=== PATIENT | female | born 1935 | race Caucasian/White ===

== ENCOUNTER → 2016-04-26 | Outpatient (CLI) | payer OTHER, BC ==
[~2016-04-26] MED LIST: ATV5X PO; CHOL100010 PO; CLC100 PO; EFFSR150 PO; FLNIN NAE; LAMO1TAB21 PO; LEVO100T7 PO; LPT40 PO; PANT40TA PO; VALS-58 PO
[2016-04-26 16:49] LABS: BASO % 0.6 %; BASO ABS # 0.05 K/uL (0-0.2); COMPLETE YES; EOS % 4.3 %; HEMATOCRIT 40.7 % (37-47); IG% 0.2 %; LYMPH % 27.2 %; LYMPH ABS # 2.27 K/uL (1.2-3.4); MEAN CELL VOLUME 91.9 fL (80-100); MEAN CORPUSCULAR HEMOGLOBIN 31.2 pg (25-34); MEAN CORPUSCULAR HGB CONC 33.9 g/dl (32-36); MEAN PLATELET VOLUME 8.9 fL (7.4-10.4); MONO % 7.2 %; NEUT % 60.5 %; PLATELET COUNT 274 K/uL (130-400); RED BLOOD COUNT 4.43 M/uL (4.2-5.4); WHITE BLOOD COUNT 8.36 K/uL (4.8-10.8)
--- NOTE | 2016-04-26 16:50 | DIAGNOSTIC IMAGING REPORT ---
CT HEAD WITHOUT CONTRAST (CT) CLINICAL HISTORY: Head pain. Head trauma. COMPARISON STUDY: 12/19/2015 TECHNIQUE: Axial CT of the brain is performed from the vertex to the skull base. IV contrast was not administered for this examination. CT DOSE: 720.95 mGycm FINDINGS: No intra or extra-axial mass lesions are visualized. There is no CT evidence of acute cortical infarction. There is no evidence of midline shift. There is no acute hemorrhage. No calvarial fractures are visualized. There are patchy white matter hypodensities likely on a small vessel basis. There is no evidence of pathologic ventricular dilatation. There is an old area of encephalomalacia involving the right temporal lobe. There is an old area is cephalization involving the anterior right frontal lobe and right frontal convexity. There is no evidence of acute sinusitis. There are postsurgical changes of a right temporal craniotomy. There are postsurgical changes of a right frontal craniotomy. IMPRESSION: 1. No acute intracranial findings 2. Postsurgical changes with stable areas of encephalomalacia. Electronically signed by: Brandt Bah M.D. 04/26/2016 4:48 PM Dictated Date/Time: 04/26/2016 4:46 PM
--- NOTE | 2016-04-27 09:46 | CODING QUERY NO DIAGNOSIS ---
TREATMENT RENDERED WITHOUT A DIAGNOSIS Dennys SHEREEN, To promote full compliance with coding requirements relating to patient care, physician participation is requested in all cases of environmental coordinator uncertainty. Please assist us with providing a diagnosis/symptom for the test(s) below: A diagnosis/symptom was not documented on your Order. A valid diagnosis/symptom is required to bill all insurances. Please remember that we are unable to code a diagnosis of rule out, probable, possible, questionable, or suspected. Tests that require a diagnosis: * CBC W/AUTO DIFF DIAGNOSIS: * CT HEAD W/OUT CONTRAST DIAGNOSIS: DATE OF SERVICE: 04/26/16 CANNOT USE A "W" CODE PRINCIPAL DX Provider Signature: Date: Thank you Terry Gomez [facility] Information Management Once completed, please kindly fax back to [phone] For questions please call [phone]
== END | disposition home or self-care (01) ==
LOC: C.LAB 16:16
PROVIDERS: ATTEND Physician Assistant
DX: S00.01XA Abrasion of scalp, initial encounter (principal); W19.XXXA Unspecified fall, initial encounter; R53.83 Other fatigue; G93.89 Other specified disorders of brain

== ENCOUNTER → 2016-08-11 | Outpatient (CLI) | payer OTHER, BC ==
[2016-08-11 16:52] LABS: BASO % 0.6 %; BASO ABS # 0.05 K/uL (0-0.2); COMPLETE YES; EOS % 4.2 %; IG% 0.3 %; LYMPH % 27.5 %; LYMPH ABS # 2.17 K/uL (1.2-3.4); MEAN CELL VOLUME 92.3 fL (80-100); MEAN CORPUSCULAR HGB CONC 32.4 g/dl (32-36); MEAN PLATELET VOLUME 8.7 fL (7.4-10.4); MONO % 7.2 %; NEUT % 60.2 %; PLATELET COUNT 298 K/uL (130-400); RED BLOOD COUNT 4.44 M/uL (4.2-5.4); WHITE BLOOD COUNT 7.88 K/uL (4.8-10.8)
[2016-08-11 17:15] LABS: ALT/SGPT 26 U/L (12-78); AST/SGOT 22 U/L (15-37); BLOOD UREA NITROGEN 21 mg/dl (7-18); BUN/CREATININE RATIO 21.9 (10-20); CALCIUM 8.9 mg/dl (8.5-10.1); CARBON DIOXIDE 30 mmol/L (21-32); CHLORIDE 109 mmol/L (98-107); CHOLESTEROL 198 mg/dl (0-200); CREATININE 0.98 mg/dl (0.60-1.20); GLUCOSE 65 mg/dl (70-99); POTASSIUM 3.9 mmol/L (3.5-5.1); SODIUM 143 mmol/L (136-145)
[2016-08-11 17:26] LABS: ALB/GLOB RATIO 1.1 (0.9-2); ALKALINE PHOSPHATASE 107 U/L (45-117); CHOLESTEROL/HDL RATIO 3.5; HDL CHOLESTEROL 57 mg/dl; LDL CHOLESTEROL CALCULATED 89 mg/dl; TRIGLYCERIDES 262 mg/dl (0-150); VERY LOW DENSITY LIPOPROT CALC 52 mg/dl
== END | disposition home or self-care (01) ==
LOC: C.LABPBG 15:22
PROVIDERS: ATTEND Internal Medicine Geriatric Medicine
DX: E03.9 Hypothyroidism, unspecified (principal); I10 Essential (primary) hypertension; E78.5 Hyperlipidemia, unspecified; M19.90 Unspecified osteoarthritis, unspecified site; E55.9 Vitamin D deficiency, unspecified

== ENCOUNTER → 2016-10-25 | Outpatient (CLI) | payer OTHER, BC ==
--- NOTE | 2016-10-25 15:16 | MAMMOGRAPHY REPORT ---
BILATERAL DIGITAL SCREENING MAMMOGRAM WITH CAD: 10/25/2016 CLINICAL HISTORY: Routine screening. Patient has no complaints. TECHNIQUE: Bilateral CC, MLO and repeat right MLO views were obtained. Current study was also evalua carlos with a Computer Aided Detection (CAD) system. COMPARISON: Comparison is made to exams dated: 06/24/2015 mammogram, 06/22/2014 mammogram, 06/19/2013 m ammogram, 06/18/2012 mammogram, 06/01/2011 mammogram, and 05/30/2010 mammogram - [facility] enter. BREAST COMPOSITION: There are scattered areas of fibroglandular density in both breasts. FINDINGS: A pacemaker projects over the far superior right pectoralis muscle on one of the MLO views. There is a stable metallic biopsy marker in the left upper outer quadrant. A few scattered stable benign-appearing microcalcifications. No new suspicious mass, architectural distortion or cluster of microcalcifications is seen. IMPRESSION: ACR BI-RADS CATEGORY 1: NEGATIVE There is no mammographic evidence of malignancy. A 1 year screening mammogram is recommended. The pa tient will receive written notification of the results. Approximately 10% of breast cancers are not detected with mammography. A negative mammographic report should not delay biopsy if a clinically suggestive mass is present. Tere Ferreira M.D. ay/:10/25/2016 15:00:37 Stave Block Splitter: Rehana PICHARDO(R)(M), [facility] letter sent: Normal 1/2 BI-RADS Code: ACR BI-RADS Category 1: Negative
== END | disposition home or self-care (01) ==
LOC: C.MAMM 14:13
PROVIDERS: ATTEND Internal Medicine Geriatric Medicine
DX: Z12.31 Encounter for screening mammogram for malignant neoplasm of breast (principal)

== ENCOUNTER 2019-03-14 05:15 | Inpatient (IN) ==
--- NOTE | 2019-02-18 09:14 | Anesthesiology Consultation ---
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 In addition, patient reports that she still has partial seizures and her neurologist last mentioned restarting her on a new antiseizure medication. Patient has not followed up since that visit with her neurologist and is requesting that she see her neurologist prior to surgery. In addition, patient has a history of hemorrhagic stroke and is concerned about possibly requiring anticoagulation after surgery and wants this cleared by her neurologist. Additional Notes Final clearance awaiting - 1) Dr. Watson, neurologist visit and clearance 2) Dr. Robles, cardiac visit and clearance, pacemaker interrogation 3) lab results 4) CXR History Surgery Operation Date: 03/14/19 12:30 Proposed Procedures p Right Anterior Total Hip Arthroplasty - Wilian Godinez, Height/Weight Height: 5 ft 2 in Weight: 59.6 kg Allergies Allergy/AdvReac Type Severity Reaction Status Date / Time levetiracetam [From [facility]] Allergy Unknown Unknown Verified 02/14/19 12:56 lisinopril Allergy Unknown UNKNOWN Verified 02/14/19 12:43 amoxicillin AdvReac Unknown GI UPSET Verified 02/14/19 12:43 clavulanic acid AdvReac Unknown GI UPSET Verified 02/14/19 12:43 Dyazide AdvReac Unknown Unknown. Verified 12/19/15 11:00 hydrochlorothiazide AdvReac Unknown Unknown. Verified 02/14/19 12:43 lamotrigine AdvReac Unknown TIREDNESS Verified 02/14/19 12:56 tramadol AdvReac Unknown GI UPSET Verified 02/14/19 12:43 triamterene AdvReac Unknown Unknown. Verified 02/14/19 12:43 Medications Home Medications Medication Instructions Recorded Confirmed Last Taken clonazepam 1 mg tablet 1 mg PO BID PRN #90 tab 08/20/18 02/14/19 Unknown fluticasone propionate 50 1 sprays INTNAS DAILY PRN #18.2 gm 08/20/18 02/14/19 Unknown mcg/actuation nasal spray,suspension buspirone 5 mg tablet 5 mg PO BID #60 tab 09/24/18 02/14/19 Unknown venlafaxine 75 mg tablet,extended 150 mg PO QAM 10/30/18 02/14/19 Unknown release 24 hr doxycycline hyclate 100 mg capsule 100 mg PO BID #14 cap 02/01/19 02/14/19 Unknown acetaminophen [Tylenol Extra 1,000 mg PO BID PRN 02/14/19 02/14/19 Unknown Strength] atorvastatin 40 mg PO QAM 02/14/19 02/14/19 Unknown calcium carbonate-vitamin D3 1 cap PO QAM 02/14/19 02/14/19 Unknown [Calcium 600 + D(3)] cholecalciferol (vitamin D3) 1,000 units PO TID 02/14/19 02/14/19 Unknown levothyroxine 100 mcg PO QAM 02/14/19 02/14/19 Unknown valsartan 320 mg PO HS 02/14/19 02/14/19 Unknown Past Medical History Medical History Anxiety and depression Carotid atherosclerosis Cognitive disorder Diverticulosis Dyslipidemia Encephalomalacia Epilepsy F/U DR WATSON-LAST ONE 2013? GERD (gastroesophageal reflux disease) History of basal cell carcinoma (BCC) of skin History of CVA (cerebrovascular accident) 2013 History of intracerebral hemorrhage without residual deficit L parietal History of sick sinus syndrome s/p PPM History of subdural hemorrhage History of TIA (transient ischemic attack) 2013 Hypertension (Acute) Hypothyroidism, unspecified Insomnia Osteoarthritis Vitamin D deficiency Exercise / Class Metabolic Activity II 4-5 Yardwork/Stairs/Walk up hill Negative for chest pain or shortness of breath. Past Family History Family History Mother Hypertension Father Heart disease Brother Heart disease Family history of diabetes mellitus Sister Heart disease Hypertension Family history of diabetes mellitus Past Surgical History Surgical History H/O craniotomy r sided w/ removal of subdural hematoma, temporal intraparenchymal hemo rrhage, 08/18/2013 Hx of hysterectomy S/P cholecystectomy S/P colonoscopy S/P placement of cardiac pacemaker S/P tonsillectomy Status post biventricular cardiac pacemaker insertion 1992, battery change 2007 & 07/2018 Status post Mohs surgery Past Anesthesia History No Hx of Anesthesia Complications History of PONV No Hx of PONV and No Hx of Motion Sickness Social History Smoking Status: Never smoker Do You Dip or Chew Tobacco: No Hx Alcohol Use: No Hx Substance Use: No Review of Systems Patient denies active symptoms of GERD. Patient denies numbness, tingling or weakness in lower extremities. (Positive for right leg pain) Patient denies history of abnormal bleeding or bleeding disorder. Patient denies active use of anticoagulants other than low dose aspirin. Physical Exam Vital Signs Last Vital Signs Temp 36.7 C 02/18/19 09:09 Pulse 72 02/18/19 09:09 Resp 18 02/18/19 09:09 BP 139/80 02/18/19 09:09 Pulse Ox 99 02/18/19 09:09 Constitutional not obese ENMT Mouth: + dentures (Upper, lower partial) Thyromental Distance: > or= 3.5 Finger Breadths Mallampati Class: II Mouth / Teeth: 1. Remaining teeth - no chips or breaks Neck normal visual inspection; neck extension not limited Respiratory normal respiratory effort Auscultation: lungs clear to auscultation bilaterally Cardiovascular Rate/Rhythm: regular rate and regular rhythm Heart Sounds: no murmur Chest (Breasts) Chest: + pacemaker Neurologic moves all extremities Motor/Sensory: + sensory deficit (Positive for right leg pain) Psychiatric Orientation: alert and oriented x 3 Testing Electrocardiogram Date: 02/18/19 Findings: + NSR @ (71)
--- NOTE | 2019-02-18 10:34 | XRay Report ---
XR chest Pre-admission PA/Lat HISTORY: 83 years-old Female pat preoperative exam. Patient complains of acute cough COMPARISON: Chest radiograph and CTA chest 12/19/2015 TECHNIQUE: PA and lateral views of the chest FINDINGS: Cardiac mediastinal and hilar silhouettes are within normal limits. Right subclavian pacer/AICD appea rs unchanged. Calcified plaque of the thoracic aortic arch. There is no pneumothorax, pleural effusio n, focal airspace consolidation or overt pulmonary edema. Minimal linear scarring/atelectasis of the lingula. Degenerative changes of the shoulders and spine. Surgical clip projects over the lateral lef t breast. Cholecystectomy. IMPRESSION: No acute process. ACT 112: Negative or not required by law. The above report was generated using voice recognition software. It may contain grammatical, syntax o r spelling errors. Electronically signed by: Ruben Perry M.D. 02/18/2019 10:33 AM
--- NOTE | 2019-02-18 10:44 | Electrocardiogram Report ---
Test Reason : Blood Pressure : / mmHG Vent. Rate : 071 BPM Atrial Rate : 071 BPM P-R Int : 208 ms QRS Dur : 066 ms QT Int : 394 ms P-R-T Axes : 066 048 074 degrees QTc Int : 428 ms Normal sinus rhythm Normal ECG When compared with ECG of 20-DEC-2015 06:54, No significant change was found Confirmed by Ruel Rockwell ([id number]) on 02/18/2019 10:43:54 AM Referred By: Wilian Godinez Confirmed By:Ruel Rockwell
[2019-02-18 10:56] LABS: Basophils # (auto) 0.05 K/uL (0-0.2); Basophils % (auto) 0.7 %; Eosinophils # (auto) 0.24 K/uL (0-0.5); Eosinophils % (auto) 3.4 %; Hematocrit (blood only) 41.2 % (37-47); Immature Granulocytes # (auto) 0.03 K/uL (0.00-0.02); Immature Granulocytes % (auto) 0.4 %; Lymphocytes # (auto) 1.68 K/uL (1.2-3.4); Lymphocytes % (auto) 23.9 %; Mean Corpuscular Volume 94.1 fL (80-100); Mean Platelet Volume 9.5 fL (7.4-10.4); Monocytes # (auto) 0.39 K/uL (0.11-0.59); Monocytes % (auto) 5.6 %; Neutrophils # (auto) 4.63 K/uL (1.4-6.5); Platelet Count 268 K/uL (130-400); RDW Coefficient of Variation 12.6 % (11.5-14.5); RDW Standard Deviation 43.5 fL (36.4-46.3); Red Blood Count 4.38 M/uL (4.2-5.4); White Blood Count 7.02 K/uL (4.8-10.8)
[2019-02-18 10:57] LABS: BUN Creatinine Ratio 18.2 (10-20); Calcium 9.6 mg/dl (8.5-10.1); Creatinine Clr Calc Pharmacy 36.5 ml/min; Est GFR (African American) 65.5; Est GFR (Non-African American) 56.5; Potassium 4.2 mmol/L (3.5-5.1)
[2019-02-18 11:00] LABS: Partial Thromboplastin Ratio 0.9; Partial Thromboplastin Time 23.3 Seconds (21.0-31.0); Prothrombin Time 10.3 Seconds (9.0-12.0)
[2019-03-14] MEDS ORDERED: TRANEXAMIC ACID 1,000 MG **IV Intra-op IV SCH (06:00)
[2019-03-14] MEDS ORDERED: ACETAMINOPHEN 500 MG TAB PO SCH (06:00)
[2019-03-14] MEDS ORDERED: GABAPENTIN 300 MG CAP PO SCH (06:00)
[2019-03-14] MEDS ORDERED: FAMOTIDINE 20 MG TAB PO SCH (06:00)
[2019-03-14] MEDS ORDERED: dexAMETHasone 4 MG TAB PO SCH (06:00)
[2019-03-14] MEDS ORDERED: TRANEXAMIC ACID 1,000 MG **IV Pre-op IV SCH (06:00)
[2019-03-14] MEDS ORDERED: CEFAZOLIN 1000MG 1,000 MG/7.5 ML SYR IV SCH (06:00)
[2019-03-14] MEDS ORDERED: ROPIVACAINE 0.5% HCL/PF 150 MG, BUPIVACAINE 0.5% MPF 30 ML, EPINEPHrine 30MG/30ML (OR U... INSTIL SCH (06:00)
[2019-03-14] MEDS ORDERED: LR 15ML/HR IV SCH (06:00)
[2019-03-14] MEDS ORDERED: LR 60ML/HR IV SCH (06:00)
[2019-03-14] MEDS ORDERED: BUPIVACAINE 0.5 % 5 MG/1 ML PF 10ML VIAL ONE (06:29)
--- NOTE | 2019-03-14 06:37 | History & Physical Report ---
Date of Service March 14, 2019 Assessment & Plan (1) Osteoarthritis of right hip: We will proceed with a right anterior total hip arthroplasty. Postoperatively she will be placed on anticoagulation and kept overnight in the hospital for postoperative medical management. She plans to talk to case management before considering a discharge plan. Present on Admission?: Yes History of Present Illness Chief Complaint: Rotator cuff arthropathy of the left shoulder Primary Care Provider: Cass Anne DO Luna is a pleasant 84-year-old female who is been dealing with chronic increasing right hip and groin pain. X-rays and clinical examination have been diagnostic for primary osteoarthritis of the right hip. After failing conservative treatment, she has elected to proceed with a right anterior total hip arthroplasty. Allergies Allergy/AdvReac Type Severity Reaction Status Date / Time levetiracetam [From [facility]] Allergy Unknown Unknown Verified 03/05/19 13:15 lisinopril Allergy Unknown UNKNOWN Verified 03/05/19 13:15 amoxicillin AdvReac Unknown GI UPSET Verified 03/05/19 13:15 clavulanic acid AdvReac Unknown GI UPSET Verified 03/05/19 13:15 Dyazide AdvReac Unknown Unknown. Verified 12/19/15 11:00 hydrochlorothiazide AdvReac Unknown Unknown. Verified 03/05/19 13:15 lamotrigine AdvReac Unknown TIREDNESS Verified 03/05/19 13:15 tramadol AdvReac Unknown GI UPSET Verified 03/05/19 13:15 triamterene AdvReac Unknown Unknown. Verified 03/05/19 13:15 Home Medications Home Medications Medication Instructions Recorded Confirmed Type clonazepam 1 mg tablet 1 mg PO BID PRN #90 tab 08/20/18 03/05/19 Rx fluticasone propionate 50 1 sprays INTNAS DAILY PRN #18.2 gm 08/20/18 03/05/19 Rx mcg/actuation nasal spray,suspension buspirone 5 mg tablet 5 mg PO BID #60 tab 09/24/18 03/05/19 Rx venlafaxine 75 mg tablet,extended 150 mg PO QAM 10/30/18 03/05/19 History release 24 hr doxycycline hyclate 100 mg capsule 100 mg PO BID #14 cap 02/01/19 03/05/19 Rx acetaminophen [Tylenol Extra 1,000 mg PO BID PRN 02/14/19 03/05/19 History Strength] atorvastatin 40 mg PO QAM 02/14/19 03/05/19 History calcium carbonate-vitamin D3 1 cap PO QAM 02/14/19 03/05/19 History [Calcium 600 + D(3)] cholecalciferol (vitamin D3) 1,000 units PO TID 02/14/19 03/05/19 History levothyroxine 100 mcg PO QAM 02/14/19 03/05/19 History valsartan 320 mg PO HS 02/14/19 03/05/19 History divalproex 500 mg tablet,extended 500 mg PO BID 30 Days #60 tab 02/24/19 03/05/19 Rx release 24 hr Past Med/Surg History Medical History Anxiety and depression Carotid atherosclerosis Cognitive disorder Diverticulosis Dyslipidemia Encephalomalacia Epilepsy F/U DR CORTÉS-LAST ONE 2013? GERD (gastroesophageal reflux disease) History of basal cell carcinoma (BCC) of skin History of CVA (cerebrovascular accident) 2013 History of intracerebral hemorrhage without residual deficit L parietal History of sick sinus syndrome s/p PPM History of subdural hemorrhage History of TIA (transient ischemic attack) 2013 Hypertension (Acute) Hypothyroidism, unspecified Insomnia Osteoarthritis Vitamin D deficiency Surgical History H/O craniotomy r sided w/ removal of subdural hematoma, temporal intraparenchymal hemorrhage, 08/18/2013 Hx of hysterectomy S/P cholecystectomy S/P colonoscopy S/P placement of cardiac pacemaker S/P tonsillectomy Status post biventricular cardiac pacemaker insertion 1991, battery change 2007 & 07/2018 Status post Mohs surgery Family History Mother Hypertension Father Heart disease Brother Heart disease Family history of diabetes mellitus Sister Heart disease Hypertension Family history of diabetes mellitus Social History Preferred Language: Micronesian Communication Ability: Effective Visual Impairment: Limited Hearing Ability: Normal Granulator Tender Required: No Beliefs That Will Affect Care: None marital status: Current Living Situation: Spouse Current Living Situation Comment: Lives at home with spouse and one dog. current occupational status: retired Other Information That Helps Us Care for You: No Feels Safe at Home: Yes Safety Concerns: Feels Safe At This Time Smoking Status: Never smoker Do You Dip or Chew Tobacco: No ; Second Hand Exposure: Yes (FAMILY SMOKES) ; Hx Alcohol Use: No Hx Substance Use: No Childhood Exposure to Second-Hand Smoke: Yes Diet Comment: Does not follow diet. caffeine: Yes (Seldom coffee, tea, or soda. ) during the past year weight has: remained stable Dental Care, Regularly: Yes Physical Activity Frequency: Daily Seatbelt Use: always Sunscreen Use: Yes Review of Systems All systems reviewed & are unremarkable except as noted in HPI & below Physical Exam Constitutional: WD/WN, vitals as above Eyes: PERRL, conjunctivae normal, anicteric sclerae ENMT: external ear and nose normal, oropharynx normal Neck: trachea midline, no thyromegaly Respiratory: normal respiratory effort Cardiovascular: RRR, no murmur, no edema Gastrointestinal (Abdomen): normal bowel sounds, soft, nontender, no hepatosplenomegaly Musculoskeletal: Physical examination of the left shoulder reveals decreased range of motion and significant weakness. There is tenderness palpation along the anterior glenohumeral joint line. The right upper extremity is neurovascularly intact. Psychiatric: A+Ox3, euthymic affect Results & Data Diagnostic Findings Radiographs of the left shoulder show some signs of osteoarthritis with blunting of the greater tuberosity and some superior migration of the humeral head on the glenoid.
--- NOTE | 2019-03-14 06:43 | History & Physical Bridge Note ---
Date of Service March 14, 2019 History & Physical Bridge Note I have examined the patient, reviewed the History & Physical and in the interval since the performance of the History & Physical I have noted the following changes of clinical significance: no changes noted
[2019-03-14] MEDS ORDERED: MIDAZOLAM HCL 1 MG/ML 2ML VIAL ONE (07:27)
[2019-03-14] MEDS ORDERED: LIDOCAINE HCL 2% 2 ML VIAL/AMP(20MG/ML) INFIL ONE (07:28)
[2019-03-14] MEDS ORDERED: PROPOFOL IV EMULSION 10 MG/ML 20 ML VIAL IV ONE (07:28)
[2019-03-14] MEDS ORDERED: ONDANSETRON INJ 2 MG/ML 2 ML VIAL ONE (07:28)
[2019-03-14] MEDS ORDERED: ATROPINE SULFATE 0.1 MG/ML 10ML SYR IV PRN (08:23)
[2019-03-14] MEDS ORDERED: KETOROLAC 30 MG/ML VIAL IV PRN (08:23)
[2019-03-14] MEDS ORDERED: HYDROmorphone INJ 1 MG/ML SYRINGE IV PRN (08:23)
[2019-03-14] MEDS ORDERED: ONDANSETRON INJ 2 MG/ML 2 ML VIAL IV PRN ×2 (08:23→12:37)
[2019-03-14] MEDS ORDERED: ePHEDrine sulfate 50 MG/ML AMP IV PRN (08:23)
[2019-03-14] MEDS ORDERED: ORTHO JOINT ANESTHETIC ONE (09:04)
--- NOTE | 2019-03-14 10:36 | Operative Report ---
PG Post Operative Report Pre & Post Diagnosis Operation Date: 03/14/19 08:50 Pre-Op Diagnosis: RIGHT HIP DEGENERATIVE JOINT DISEASE Post-Op Diagnosis: RIGHT HIP DEGENERATIVE JOINT DISEASE I identified the patient and participated in the time-out.: Yes Procedure Operation Date: 03/14/19 08:50 Actual Procedures p Right Anterior Total Hip Arthroplasty(Right) - Wilian Godinez DO Surgeon Wilian Godinez DO [employer] Wilian Matthew PAC Estimated Blood Loss 250 Findings Consistent with Post-Op Diagnosis Specimens Right femoral head Complications none Disposition Disposition: Recovery Room Indications Luna is a pleasant 84-year-old female who presented my office with chronic increasing right hip and groin pain. X-rays and clinical examination were diagnostic for primary osteoarthritis of the right hip. After failing conservative treatment, she elected to proceed with a right total hip arthroplasty. Description of Procedure Implants used I used a Biomet Taperloc total hip arthroplasty system with a size 7 high offset Taperloc stem, a 46 mm G7 cup with a 25mm screw, an E1 polyethylene liner, a 32 mm ceramic head with a -3 neck. Luna arrived at the hospital for the above procedure. She was seen in the preoperative holding area and the operative extremity was identified and signed. She was given a spinal anesthetic, a preoperative antibiotic, and TXA. She was then taken back to the operating room and laid on the table in the supine position. She was given basic sedation. The operative leg was secured to a Puristst leg positioner. The hip was then prepped and draped in sterile fashion. A timeout was done and the patient and the operative extremity was properly identified. An anterior approach was used. Dissection was taken down through the fascia and the tensor muscle belly was retracted laterally and the rectus was retracted medially. The circumflex vessels were identified and ligated. The capsule was then incised and tagged for later repair. The femoral neck was then cut and the femoral head was removed. The acetabulum was exposed. Time was spent doing a complete circumferential labral release. Sequential reaming of the acetabulum up to a size 45 reamer was done. Final reamings were done under fluoroscopy to ensure appropriate version. A Biomet 46 mm G7 cup was then impacted into place. A single 25 mm screw was placed. The E1 polyethylene liner was then snapped into place. Surrounding soft tissues were then injected with 100 cc of an orthopedic pain control cocktail. The proximal femur was then exposed. Sequential broaching up to a size 7 broach was done. Off that broach a size 32 head with a -3 neck was trialed. The hip was reduced and fluoroscopic images showed anatomic alignment of the implants in acceptable length. The broach was removed. The final size 7 high offset Taperloc stem was then impacted into place. A ceramic 32 mm head with a -3 neck was then impacted onto the stem and the hip was reduced. Final fluoroscopic images showed anatomic alignment of the hip. The capsule was then closed with #1 Vicryl suture. A dilute betadyne lavage was then done for 3 minutes. The joint was then irrigated with normal saline solution. The fascia was closed with #1 PDS suture. Skin was closed with 2-0 Vicryl, mary, and a Kimi VAC dressing. She was then transferred to a hospital bed and taken to the post anesthesia care unit in stable condition. She tolerated the procedure well. I attest to the content of the Intraoperative Record and any orders documented therein. Any exceptions are noted below.
--- NOTE | 2019-03-14 10:46 | Fluoroscopy Report ---
FL hip RT 1V CLINICAL HISTORY: RT ANTERIOR HIP. Right hip prosthesis. COMPARISON STUDY: None. FLUOROSCOPY TIME: 16 seconds. FINDINGS: 5 fluoroscopic spot images of the right hip demonstrate a right total hip arthroplasty. The hardware is intact. No fracture or dislocation. IMPRESSION: Fluoroscopy provided for right total hip arthroplasty. ACT 112: Negative or not required by law. Electronically signed by: Boaz Meredith M.D. 03/14/2019 10:44 AM
--- NOTE | 2019-03-14 11:36 | XRay Report ---
AP PELVIS, CROSSTABLE LATERAL RIGHT HIP History: Right total hip arthroplasty. Degenerative arthritis. Postop. FINDINGS: The patient is status post a right total hip arthroplasty. The hardware is intact. No fract ure or dislocation. Skin mary are in place. IMPRESSION: Right total hip arthroplasty. No evidence for hardware complication ACT 112: Negative or not required by law. Electronically signed by: Boaz Meredith M.D. 03/14/2019 11:35 AM
--- NOTE | 2019-03-14 11:48 | Anesthesiology Progress Note ---
Date of Service March 14, 2019 Anesthesia Post Procedure Vital Signs Vital Signs: Temp Pulse Resp BP Pulse Ox 03/14/19 11:35 79 16 131/61 99 03/14/19 11:25 79 18 138/68 100 03/14/19 11:15 82 16 132/72 100 03/14/19 11:05 36.8 C 86 18 147/84 H 100 03/14/19 07:17 36.8 C 77 18 175/74 H 100 Transfer of Care Handoff Completed per policy Notes Mental Status: alert / awake / arousable Patient Amnestic to Procedure: Yes Nausea / Vomiting: adequately controlled Pain: adequately controlled Airway Patency, RR, SpO2: stable & adequate BP & HR: stable & adequate Hydration State: stable & adequate Neuraxial Anesthesia: was administered and sensory block is resolving Anesthetic Complications: no major complications apparent
[2019-03-14] MEDS ORDERED: MAGNESIUM HYDROXIDE SUSP 30 ML UDC PO PRN (12:37)
[2019-03-14] MEDS ORDERED: bisacodyL 10 MG SUPP PR PRN (12:37)
[2019-03-14] MEDS ORDERED: METOCLOPRAMIDE HCL INJ 5 MG/ML 2 ML VIAL IV PRN (12:37)
[2019-03-14] MEDS ORDERED: HYDROmorphone INJ 0.5 MG/0.5 ML SYR IV PRN (12:37)
[2019-03-14] MEDS ORDERED: clonazePAM 1 MG TAB PO PRN (12:37)
[2019-03-14] MEDS ORDERED: FLUTICASONE PROPIONATE NA SPR 16 GM BTL PRN (12:37)
[2019-03-14] MEDS ORDERED: HYDROCODONE/ACETAMOPHEN 5/325MG TAB PO PRN (12:37)
[2019-03-14] MEDS ORDERED: NALOXONE HCL 0.4 MG/1 ML VIAL/CARP IV PRN (12:37)
[2019-03-14] MEDS: ACETAMINOPHEN 500 MG TAB PO SCH ×2 (14:26→22:07)
[2019-03-14] MEDS: KETOROLAC TROMETHAMINE 15 MG/ML VIAL IV SCH ×2 (14:26→19:03)
[2019-03-14] MEDS: CHOLECALCIFEROL 1,000 UNITS 25 MCG TAB PO SCH ×2 (14:26→20:43)
[2019-03-14] MEDS: SODIUM CHLORIDE 0.9% 1000ML 1,000 ML IV SCH (14:32)
[2019-03-14] MEDS: CEFAZOLIN 2000MG 2,000 MG/15 ML SYR IV SCH (18:14)
[2019-03-14] MEDS: DIVALPROEX EXTENDED RELEASE 500 MG TAB PO SCH (20:38)
[2019-03-14] MEDS: VALSARTAN 80 MG TAB PO SCH (20:40)
[2019-03-14] MEDS: DOXYCYCLINE HYCLATE 100 MG CAP PO SCH (20:43)
[2019-03-14] MEDS: ASPIRIN 81 MG ECTAB PO SCH (20:44)
[2019-03-14] MEDS: DOCUSATE SODIUM 100 MG CAP PO SCH (20:44)
[2019-03-14] MEDS: SENNA 8.6 MG TAB PO SCH (20:45)
[2019-03-15] MEDS: KETOROLAC TROMETHAMINE 15 MG/ML VIAL IV SCH ×6 (00:16→23:17)
[2019-03-15] MEDS: CEFAZOLIN 2000MG 2,000 MG/15 ML SYR IV SCH (00:16)
[2019-03-15] MEDS: SODIUM CHLORIDE 0.9% 1000ML 1,000 ML IV SCH (01:06)
[2019-03-15] MEDS: LEVOTHYROXINE SODIUM 100 MCG TABLET PO SCH (05:18)
[2019-03-15] MEDS: ACETAMINOPHEN 500 MG TAB PO SCH ×3 (05:18→22:21)
[2019-03-15 06:54] LABS: Hemoglobin 10.1 g/dL (12.0-16.0); Immature Granulocytes # (auto) 0.02 K/uL (0.00-0.02); Immature Granulocytes % (auto) 0.2 %; Lymphocytes # (auto) 1.26 K/uL (1.2-3.4); Lymphocytes % (auto) 10.5 %; Mean Corpuscular Hemoglobin 31.7 pg (25-34); Mean Corpuscular Hgb Conc 33.7 g/dL (32-36); Monocytes # (auto) 1.25 K/uL (0.11-0.59); Monocytes % (auto) 10.5 %; Neutrophils # (auto) 9.43 K/uL (1.4-6.5); Neutrophils % (auto) 78.8 %; Platelet Count 213 K/uL (130-400); RDW Coefficient of Variation 12.6 % (11.5-14.5); RDW Standard Deviation 43.6 fL (36.4-46.3); Red Blood Count 3.19 M/uL (4.2-5.4); White Blood Count 11.96 K/uL (4.8-10.8)
[2019-03-15 07:22] LABS: BUN Creatinine Ratio 23.2 (10-20); Calcium 8.9 mg/dl (8.5-10.1); Creatinine Clr Calc Pharmacy 34.3 ml/min; Est GFR (African American) 55.6; Potassium 4.4 mmol/L (3.5-5.1)
--- NOTE | 2019-03-15 07:33 | Orthopedic Progress Note ---
Date of Service March 15, 2019 Assessment & Plan (1) History of right hip replacement: Overall she is doing fairly well. She is not having much pain in the right hip. She will be seen by physical therapy today for ambulation and range of motion exercises. We are awaiting consultation with case management to help determine best choice of placement. She seems interested in going to [facility] or an extended care facility. She does have a history of a hemorrhagic CVA in the past. She does need to be on anticoagulation for prevention of DVTs. We have decided that an aspirin twice a day is her best option. Present on Admission?: Yes Subjective Luna was seen and examined at bedside this morning. Overall she is doing very well. She is not having much pain in the right hip. She is happy with her progress to this point. She has been up and ambulating to the bathroom but not much more than that. She has no complaints. Physical Exam Musculoskeletal: On physical examination of the right hip, the Kimi VAC dressing is to suction. Her leg lengths are equal. She has active dorsiflexion and plantarflexion of the right ankle. Results & Data ([facility]) Vital Signs (Past 12 Hours) Vital Signs Temp Pulse Resp BP Pulse Ox 03/15/19 07:10 36.6 C 76 18 129/67 98 03/15/19 04:40 36.6 C 73 15 113/59 L 96 03/15/19 00:09 36.7 C 65 14 124/65 95 03/14/19 20:03 36.8 C 76 17 121/69 96 Laboratory Results H & H 02/18/19 03/15/19 Range/Units 09:31 06:15 Hgb 14.0 10.1 L (12.0-16.0) g/dL Hct 41.2 30.0 L (37-47) % Coagulation 02/18/19 Range/Units 09:31 INR 1.0 (0.9-1.1) Diagnostic Findings Postoperative x-rays of the right hip show the prosthesis to be in anatomic alignment without any evidence of fracture, dislocation, or loosening. PG Care Time/CCT Total # of Minutes Spent Total Time Spent with Patient: Total time spent is greater than 50% in coordination of care (as documented) at patient's floor/unit and/or counseling patient: Coding Level of Care Code None Diagnoses History of right hip replacement Z96.641
[2019-03-15] MEDS ORDERED: dexAMETHasone 4 MG TAB PO SCH (08:00)
[2019-03-15] MEDS: MULTIVITAMIN TAB PO SCH (08:49)
[2019-03-15] MEDS: DOCUSATE SODIUM 100 MG CAP PO SCH ×2 (08:49→20:45)
[2019-03-15] MEDS: ASPIRIN 81 MG ECTAB PO SCH ×2 (08:49→20:46)
[2019-03-15] MEDS: DOXYCYCLINE HYCLATE 100 MG CAP PO SCH ×2 (08:49→20:48)
[2019-03-15] MEDS: VENLAFAXINE HCL XR 150 MG CAPXR PO SCH (08:49)
[2019-03-15] MEDS: ATORVASTATIN 40 MG TAB PO SCH (08:49)
[2019-03-15] MEDS: CHOLECALCIFEROL 1,000 UNITS 25 MCG TAB PO SCH ×3 (08:49→20:50)
[2019-03-15] MEDS: DIVALPROEX EXTENDED RELEASE 500 MG TAB PO SCH ×3 (08:50→20:47)
--- NOTE | 2019-03-15 20:13 | Anesthesiology Progress Note ---
Date of Service March 15, 2019 Anesthesia Post Procedure Vital Signs Vital Signs: Temp Pulse Resp BP BP Pulse Ox Pulse Ox 03/15/19 16:46 73 175/79 H 03/15/19 16:07 71 181/80 H 03/15/19 15:55 36.7 C 71 17 100 03/15/19 13:30 100 03/15/19 12:13 36.8 C 69 18 162/81 H 99 03/15/19 07:10 36.6 C 76 18 129/67 98 03/15/19 04:40 36.6 C 73 15 113/59 L 96 03/15/19 00:09 36.7 C 65 14 124/65 95 Pain Intensity Right Hip: Pain Intensity: 3 Notes Mental Status: alert / awake / arousable and participated in evaluation Nausea / Vomiting: adequately controlled Pain: adequately controlled Airway Patency, RR, SpO2: stable & adequate BP & HR: stable & adequate Hydration State: stable & adequate Neuraxial Anesthesia: was administered and sensory block resolved Anesthetic Complications: no major complications apparent and Pt Satisfied with anesthetic care
[2019-03-15] MEDS: SENNA 8.6 MG TAB PO SCH (20:47)
[2019-03-15] MEDS: VALSARTAN 80 MG TAB PO SCH (20:48)
[2019-03-16] MEDS: KETOROLAC TROMETHAMINE 15 MG/ML VIAL IV SCH (05:20)
[2019-03-16] MEDS: ACETAMINOPHEN 500 MG TAB PO SCH (05:20)
[2019-03-16] MEDS: LEVOTHYROXINE SODIUM 100 MCG TABLET PO SCH (05:21)
--- NOTE | 2019-03-16 06:42 | Orthopedic Progress Note ---
Date of Service March 16, 2019 Assessment & Plan (1) History of right hip replacement: Overall she is doing very well. She is a little bit concerned about discharge. She was seen by case management yesterday and [facility]. However, she is now thinking about going home. She feels she is needed at home at this point and has plenty of family to help take care of her. I told her to wait until she is seen once again by physical therapy today and has a chance to talk to her family this morning. We will see what case management says today as well. If she does very well with therapy and everybody feels that she would be safe at home then she can be discharged home later today, however, if therapy and case management and family feel that she would be better at the orthopedic specialty hospital then she can be discharged to the [facility] hospital later today. She can follow-up with orthopedics in 2 weeks. She is on aspirin for DVT prophylaxis. Present on Admission?: Yes Yves Carrasco was seen and examined at bedside this morning. Overall she is doing fairly well. She is not having much hip pain. She was able to ambulate well yesterday with physical therapy. She is on aspirin for DVT prophylaxis. She has no complaints. Physical Exam Musculoskeletal: On physical examination of the right hip, the Kimi VAC dressing is to suction. Her leg lengths are equal. She has active dorsiflexion and plantarflexion of her right ankle. Sensation is intact. Results & Data ([facility]) Vital Signs (Past 12 Hours) Vital Signs Temp Pulse Resp BP Pulse Ox 03/15/19 22:51 36.6 C 73 18 178/75 H 97 PG Care Time/CCT Total # of Minutes Spent Total Time Spent with Patient: Total time spent is greater than 50% in coordinat ion of care (as documented) at patient's floor/unit and/or counseling patient: Coding Level of Care Code None Diagnoses History of right hip replacement Z96.641
[2019-03-16] MEDS: CHOLECALCIFEROL 1,000 UNITS 25 MCG TAB PO SCH (08:40)
[2019-03-16] MEDS: VENLAFAXINE HCL XR 150 MG CAPXR PO SCH (08:40)
[2019-03-16] MEDS: DOXYCYCLINE HYCLATE 100 MG CAP PO SCH (08:40)
[2019-03-16] MEDS: ATORVASTATIN 40 MG TAB PO SCH (08:41)
[2019-03-16] MEDS: MULTIVITAMIN TAB PO SCH (08:41)
[2019-03-16] MEDS: DOCUSATE SODIUM 100 MG CAP PO SCH (08:41)
[2019-03-16] MEDS: DIVALPROEX EXTENDED RELEASE 500 MG TAB PO SCH (08:42)
[2019-03-16] MEDS: ASPIRIN 81 MG ECTAB PO SCH (09:42)
== END 2019-03-16 11:18 | DRG 470 ==
LOC: ASU 05:15 → 3E 11:04

== ENCOUNTER 2021-03-15 16:32 | Inpatient (IN) ==
--- NOTE | 2021-03-15 16:45 | CT Scan Report ---
CT head/brain wo con CLINICAL HISTORY: Stroke Like Symptoms Technique: Contiguous axial CT images of the head were acquired from the base of the skull to the catherine khang without intravenous contrast administration. Images were viewed in brain, subdural and bone [facility]. Automated dose lowering techniques and/or adjustment according to patient size were utilized for this exam. Comparison: Comparison is made to CT head 03/09/2021 Findings: Areas of decreased attenuation are present in the periventricular and subcortical white matter bilate rally consistent with small vessel ischemic disease. Generalized cerebral atrophy with commensurate e nlargement of the ventricles, sulci, and cisterns is also present. There is no acute intracranial hem orrhage or evidence of acute territorial infarction. No shift of the midline structures, mass effect, or extra-axial abnormalities are shown. Atherosclerotic calcifications are present in the intracran ial segments of the internal carotid arteries. In the interval, there is slight increased prominence of subarachnoid hemorrhage of the left frontal lobe. No midline shift is seen. Imaged portions of the paranasal sinuses and mastoid air cells are clear. The orbits appear normal. Postsurgical changes are seen in the right frontal and temporal calvaria. Impression: Interval slight increase in left frontal subarachnoid hemorrhage without midline shift. Chronicity of this hemorrhage between and March 09 cannot be determined, but acute rebleed cannot be exclude d. No new sites of hemorrhage are seen. ACT 112: Negative or not required by law. Electronically signed by: Porfirio Becerra M.D. 03/15/2021 4:44 PM
--- NOTE | 2021-03-15 17:02 | Emergency Department Note ---
Impression & Plan Acute CVA (cerebrovascular accident), HTN (hypertension), SAH (subarachnoid hemorrhage) ED Provider Note NAME: JANES BOYD AGE: 86 SEX: F : 1935 ARRIVES VIA: Ambulance INFORMANT: Patient ED PROVIDER(S): Ben Zelaya DO CHIEF COMPLAINT: Confusion and slurred speech HPI: Patient is an 86-year-old female who was recently transferred to [facility] following brain bleed on 03/11/21. She presents today as she was just discharged from the hospital yesterday. notes that she was having some slurred speech. Patient notes she was also having some paresthesias/numbness in the right hand. He also notes that she has been confused intermittently throughout her hospital stay and was maybe a little confused today but that has abated as well. He is having trouble taking care of her at home. Denies any chest pain or shortness of breath. No nausea, vomiting, or diarrhea. No dysuria, urgency, or frequency. No other exacerbating or remitting factors. She does admit to double vision which is definitively new today. History is difficult to obtain from the patient and the . ROS: See above HPI for pertinent positives & negatives. A total of 10 systems reviewed and were otherwise negative. PAST MEDICAL HISTORY:See Below PAST SURGICAL HISTORY:See Below FAMILY HISTORY:See Below SOCIAL HISTORY:See Below HOME MEDICATIONS:See Below ALLERGIES:See Below VITALS:See Below PHYSICAL EXAMINATION: GENERAL: Sitting up in bed, alert, well appearing, well nourished, no distress, non-toxic EYE EXAM: normal conjunctiva. PERRL and EOM's grossly intact. OROPHARYNX: no exudate, no erythema, lips, buccal mucosa, and tongue normal and mucous membranes are moist NECK: supple, no nuchal rigidity, no adenopathy, non-tender LUNGS: Clear to auscultation. Normal chest wall mechanics HEART: no murmurs, S1 normal and S2 normal ABDOMEN: abdomen soft, non-tender, normo-active bowel sounds, no masses, no rebound or guarding. BACK: Back is symmetrical on inspection and there is no deformity, no midline tenderness, no CVA tenderness. SKIN: no rashes and no bruising UPPER EXTREMITIES: upper extremities are grossly normal. LOWER EXTREMITIES: No pitting edema. NEURO EXAM: Normal sensorium, cranial nerves II-XII intact, normal speech, no weakness of arms, no weakness of legs. No drift. Finger to nose intact. Gross sensation intact. MEDICAL DECISION MAKING: Patient is an 86-year-old female who presents ER with above-stated complaint. IV was established blood work was obtained. Stroke alert was called. Labs show no significant leukocytosis or anemia. INR unremarkable. BMP with slightly elevated chloride at 109. Bilirubin LFTs and troponin was negative. Covid was negative. CT of the head showed subarachnoid hemorrhage. This is slightly worse than the previous on 03/11 when patient was transferred. She is completely neurologically intact. Discussed with Dr. Higginbotham on 2 separate occasions from [facility] neurology's service. Transferred the images to him. He reviewed them. These were unchanged from when the patient was discharged. He recommends keeping the patient here. I called him the second time as our hospitalist Dr. Hayden preferred to have the patient transferred but Dr. Higginbotham again recommended keeping the patient here with an unchanged CT of the head. Patient was given a dose of labetalol. She was placed on a Cardene drip to titrate pressures less than 140. She is updated bedside. Discussed with hospitalist for admission. Patient will go to the ICU. Triage Nursing notes reviewed. Limited review of prior medical records performed Vital Signs: reviewed and remarkable for no significant abnormalities Differential diagnosis: Differential Diagnosis includes but is not limited to ischemic Stroke, hemorrhagic stroke, bells palsy, mass, neoplasm, migraine headache, seizure, subarachnoid hemorrhage, TIA, and transient global amnesia. ER treatment provided: See below Diagnostics interpreted by me: ECG: Sinus rhythm rate 72 Normal axis Inferior Q waves Poor baseline QTC 433 Cardiac Monitoring: An order was placed for continuous cardiac monitoring. The monitor shows a rate of 75 with sinus rhythm. Laboratory studies: As stated above and show below. Imaging studies: CT head shows a subarachnoid hemorrhage unchanged from recent Consultation(s): Discussed with Dr. Higginbotham as stated above from [facility] Discussed with Dr. Hayden from [facility] Procedures: none Critical Care: I have personally spent 45 minutes of critical care time in the direct man agement of this patient. This includes bedside care, interpretation of diagnostic studies, and testing, discussion with consultants, patient, and family members, and other required patient management activities. This 45 minutes is in excess of all separately billable procedures. Past Med/Surg History Medical History (Updated 03/15/21 @ 23:25 by Ben Zelaya, DO) Carotid atherosclerosis Cognitive disorder Depression with anxiety Diverticulosis Dyslipidemia Encephalomalacia Epilepsy F/U DR CORTÉS-LAST ONE 2013? 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, traumatic History of sick sinus syndrome s/p PPM History of subdural hemorrhage right temporal region, s/p craniotomy/evacuation; SDH 2nd trauma; 08/2013 History of TIA (transient ischemic attack) (2013) Hypertension Hypothyroidism, unspecified Insomnia Memory loss Osteoarthritis Partial seizures Urinary incontinence Vitamin D deficiency Surgical History H/O craniotomy r sided w/ removal of subdural hematoma, temporal intraparenchymal hemorrhage, 08/18/2013 History of right hip replacement (03/2019) Hx of hysterectomy S/P cholecystectomy S/P tonsillectomy Status post biventricular cardiac pacemaker insertion 1991, battery change 2007 & 07/2018 Status post Mohs surgery Family History Mother Hypertension Father Heart disease Myocardial infarction Brother Heart disease Family history of diabetes mellitus Myocardial infarction Sister Heart disease Hypertension Family history of diabetes mellitus Breast cancer Myocardial infarction Brother Myocardial infarction Sister Myocardial infarction Son , Sep 2020 COPD (chronic obstructive pulmonary disease) Brain bleed Denies family history of Ovarian cancer Prostate cancer Colorectal cancer Social History Smoking Status: Never smoker Second Hand Exposure: Yes (FAMILY SMOKES); Hx Alcohol Use: No Hx Substance Use: No Preferred Language: [place] Communication Ability: Effective Visual Impairment: Limited Hearing Ability: Normal Screening Nurse Required: No Beliefs That Will Affect Care: None marital status: Current Living Situation: Family Current Living Situation Comment: spouse, 2 grandsons current occupational status: retired Feels Safe at Home: Yes Childhood Exposure to Second-Hand Smoke: Yes caffeine: Yes (Seldom coffee, tea, or soda. ) during the past year weight has: remained stable Dental Care, Regularly: Yes Physical Activity Frequency: Daily Seatbelt Use: always Sunscreen Use: Yes Assistive Devices: Glasses Allergies Allergies Allergy/AdvReac Type Severity Reaction Status Date / Time levetiracetam [From [facility]] Allergy Unknown Unknown Verified 03/15/21 17:02 lisinopril Allergy Unknown UNKNOWN Verified 03/15/21 17:02 amoxicillin AdvReac Intermediate GI UPSET Verified 03/15/21 17:02 clavulanic acid AdvReac Intermediate GI UPSET Verified 03/15/21 17:02 donepezil AdvReac Intermediate NAUSEATED Verified 03/15/21 17:02 lamotrigine AdvReac Intermediate TIREDNESS Verified 03/15/21 17:02 tramadol AdvReac Intermediate GI UPSET Verified 03/15/21 17:02 hydrochlorothiazide AdvReac Unknown Unknown. Verified 03/15/21 17:02 triamterene AdvReac Unknown Unknown. Verified 03/15/21 17:02 Home Meds Home Medications Medication Instructions Recorded Confirmed acetaminophen 325 mg tablet 650 mg PO Q4H PRN tab 03/25/19 03/15/21 (Tylenol) venlafaxine 150 mg tablet,extended 150 mg PO QAM 03/09/21 03/15/21 release 24 hr venlafaxine 75 mg capsule,extended 75 mg PO QAM 03/09/21 03/15/21 release 24 hr buspirone 15 mg tablet 15 mg PO BID 03/15/21 03/15/21 clonazepam 1 mg tablet 0.25 mg PO DAILY PRN tab 03/15/21 03/15/21 olanzapine 2.5 mg tablet 2.5 mg PO HS tab 03/15/21 03/15/21 Previous Rx's Medication Instructions Recorded levothyroxine 100 mcg tablet 100 mcg PO QAM #90 tab 11/10/20 atorvastatin 40 mg tablet 40 mg PO QAM #90 tab 11/19/20 valsartan 320 mg tablet 320 mg PO HS #90 tab 12/03/20 levetiracetam 500 mg tablet 500 mg PO BID #60 tab 03/15/21 Results & Data (ED) Vital Signs Vital Signs - 24 hr 03/15/21 16:35 03/15/21 17:15 03/15/21 17:30 Temperature 36.9 C Temperature Source Oral Pulse Rate 71 68 69 Pulse Rate from SpO2 Sensor Respiratory Rate 20 12 12 Respiratory Effort / Characteristics Non-Labored Spontaneous Respiratory Depth Normal Respiratory Pattern Regular Blood Pressure 173/82 H 174/80 H 166/89 H Blood Pressure Mean 112 111 114 Blood Pressure Position Lying Pulse Oximetry 98 95 95 Oxygen Delivery Method Room Air Sepsis Recent Fever Within 48 Hours No Sepsis New/Unexplained Change in Mental Status N/A Sepsis Action Taken by Nursing No Action Required 03/15/21 17:45 03/15/21 18:00 03/15/21 18:15 Temperature Temperature Source Pulse Rate 65 65 68 Pulse Rate from SpO2 Sensor 64 Respiratory Rate 13 15 13 Respiratory Effort / Characteristics Respiratory Depth Respiratory Pattern Blood Pressure 183/84 H 208/92 H 186/88 H Blood Pressure Mean 117 130 120 Blood Pressure Position Pulse Oximetry 97 96 96 Oxygen Delivery Method Sepsis Recent Fever Within 48 Hours Sepsis New/Unexplained Change in Mental Status Sepsis Action Taken by Nursing 03/15/21 18:30 03/15/21 18:45 03/15/21 19:00 Temperature Temperature Source Pulse Rate 69 68 68 Pulse Rate from SpO2 Sensor 69 68 69 Respiratory Rate 16 15 15 Respiratory Effort / Characteristics Respiratory Depth Respiratory Pattern Blood Pressure 175/88 H 190/90 H 199/84 H Blood Pressure Mean 117 123 122 Blood Pressure Position Pulse Oximetry 98 98 99 Oxygen Delivery Method Sepsis Recent Fever Within 48 Hours Sepsis New/Unexplained Change in Mental Status Sepsis Action Taken by Nursing 03/15/21 19:15 03/15/21 19:30 03/15/21 19:45 Temperature Temperature Source Pulse Rate 68 68 68 Pulse Rate from SpO2 Sensor 68 69 68 Respiratory Rate 17 18 18 Respiratory Effort / Characteristics Respiratory Depth Respiratory Pattern Blood Pressure 185/105 H 186/84 H 202/87 H Blood Pressure Mean 131 118 125 Blood Pressure Position Pulse Oximetry 97 99 97 Oxygen Delivery Method Sepsis Recent Fever Within 48 Hours Sepsis New/Unexplained Change in Mental Status Sepsis Action Taken by Nursing 03/15/21 20:08 03/15/21 20:11 03/15/21 20:22 Temperature Temperature Source Pulse Rate 75 71 Pulse Rate from SpO2 Sensor 73 76 71 Respiratory Rate 17 18 Respiratory Effort / Characteristics Respiratory Depth Respiratory Pattern Blood Pressure 196/108 H 200/86 H Blood Pressure Mean 137 124 Blood Pressure Position Pulse Oximetry 95 99 97 Oxygen Delivery Method Sepsis Recent Fever Within 48 Hours Sepsis New/Unexplained Change in Mental Status Sepsis Action Taken by Nursing 03/15/21 20:30 Temperature Temperature Source Pulse Rate 81 Pulse Rate from SpO2 Sensor 82 Respiratory Rate 18 Respiratory Effort / Characteristics Respiratory Depth Respiratory Pattern Blood Pressure 179/76 H Blood Pressure Mean 110 Blood Pressure Position Pulse Oximetry 98 Oxygen Delivery Method Sepsis Recent Fever Within 48 Hours Sepsis New/Unexplained Change in Mental Status Sepsis Action Taken by Nursing Laboratory Data Result diagrams: 03/15/21 16:46 03/15/21 16:46 Lab Results 03/15/21 03/15/21 03/15/21 Range/Units 16:46 16:46 16:46 WBC 7.14 (4.8-10.8) K/uL RBC 4.44 (4.2-5.4) M/uL Hgb 14.2 (12.0-16.0) g/dL Hct 42.1 (37-47) % MCV 94.8 (80-100) fL MCH 32.0 (25-34) pg MCHC 33.7 (32-36) g/dL RDW Std Deviation 43.7 (36.4-46.3) fL RDW Coeff of Carmen 12.6 (11.5-14.5) % Plt Count 219 (130-400) K/uL MPV 9.3 (7.4-10.4) fL Immature Gran % (Auto) 0.4 % Neut % (Auto) 53.0 % Lymph % (Auto) 29.1 % [place] % (Auto) 8.5 % Eos % (Auto) 8.4 % Baso % (Auto) 0.6 % Neut # (Auto) 3.78 (1.4-6.5) K/uL Lymph # (Auto) 2.08 (1.2-3.4) K/uL [place] # (Auto) 0.61 H (0.11-0.59) K/uL Eos # (Auto) 0.60 H (0-0.5) K/uL Baso # (Auto) 0.04 (0-0.2) K/uL Immature Gran # (Auto) 0.03 H (0.00-0.02) K/uL PT 10.6 (9.0-12.0) Seconds INR 1.0 (0.9-1.1) APTT 24.7 (21.0-31.0) Seconds PTT Ratio 0.9 Sodium 142 (136-145) mmol/L Potassium 3.9 (3.5-5.1) mmol/L Chloride 109 H (98-107) mmol/L Carbon Dioxide 30 (21-32) mmol/L Anion Gap 3 (3-11) BUN 18 (6-23) mg/dl Creatinine 0.79 (0.6-1.2) mg/dl Est Cr Clr Drug Dosing 46.5 ml/min Est GFR ( Amer) 79.1 ml/min Est GFR (Non-Af Amer) 68.3 ml/min BUN/Creatinine Ratio 22.8 H (10-20) Glucose 90 (70-99(Fasting)) mg/dl Calcium 9.2 (8.5-10.1) mg/dl Magnesium 2.0 (1.7-2.4) mg/dl Total Bilirubin 0.4 (0.2-1.0) mg/dl AST 17 (13-39) U/L ALT 15 (7-52) U/L Alkaline Phosphatase 97 (34-104) U/L Troponin I < 0.03 (0-0.04) ng/ml Total Protein 6.3 (6.0-8.3) gm/dl Albumin 3.8 (3.4-5.0) gm/dl Globulin 2.5 (2.5-4.0) gm/dl Albumin/Globulin Ratio 1.5 (0.9-2) SARS-CoV-2, RNA, NAAT (NEGATIVE) 03/15/21 Range/Units 17:30 WBC (4.8-10.8) K/uL RBC (4.2-5.4) M/uL Hgb (12.0-16.0) g/dL Hct (37-47) % MCV (80-100) fL MCH (25-34) pg MCHC (32-36) g/dL RDW Std Deviation (36.4-46.3) fL RDW Coeff of Carmen (11.5-14.5) % Plt Count (130-400) K/uL MPV (7.4-10.4) fL Immature Gran % (Auto) % Neut % (Auto) % Lymph % (Auto) % [place] % (Auto) % Eos % (Auto) % Baso % (Auto) % Neut # (Auto) (1.4-6.5) K/uL Lymph # (Auto) (1.2-3.4) K/uL [place] # (Auto) (0.11-0.59) K/uL Eos # (Auto) (0-0.5) K/uL Baso # (Auto) (0-0.2) K/uL Immature Gran # (Auto) (0.00-0.02) K/uL PT (9.0-12.0) Seconds INR (0.9-1.1) APTT (21.0-31.0) Seconds PTT Ratio Sodium (136-145) mmol/L Potassium (3.5-5.1) mmol/L Chloride (98-107) mmol/L Carbon Dioxide (21-32) mmol/L Anion Gap (3-11) BUN (6-23) mg/dl Creatinine (0.6-1.2) mg/dl Est Cr Clr Drug Dosing ml/min Est GFR ( Amer) ml/min Est GFR (Non-Af Amer) ml/min BUN/Creatinine Ratio (10-20) Glucose (70-99(Fasting)) mg/dl Calcium (8.5-10.1) mg/dl Magnesium (1.7-2.4) mg/dl Total Bilirubin (0.2-1.0) mg/dl AST (13-39) U/L ALT (7-52) U/L Alkaline Phosphatase (34-104) U/L Troponin I (0-0.04) ng/ml Total Protein (6.0-8.3) gm/dl Albumin (3.4-5.0) gm/dl Globulin (2.5-4.0) gm/dl Albumin/Globulin Ratio (0.9-2) SARS-CoV-2, RNA, NAAT NEGATIVE (NEGATIVE) Administered Medications Nicardipine HCl 25 mg/ Sodium (Chloride) 250 mls @ 50 mls/hr IV .Q5H [facility]; Protocol Stop: 04/14/21 19:59 Last Admin: 03/15/21 22:54 Dose: 5 mg/hr, 50 mls/hr Documented by: [id number] Cosigned by: [id number] Titration: 03/15/21 22:54 Dose: 5 mg/hr, 50 mls/hr Documented by: [id number] Cosigned by: [id number] Titration: 03/15/21 22:51 Dose: 5 mg/hr, 50 mls/hr Documented by: [id number] Titration: 03/15/21 22:35 Dose: 7.5 mg/hr, 75 mls/hr Documented by: [id number] Titration: 03/15/21 20:42 Dose: 10 mg/hr, 100 mls/hr Documented by: [id number] Admin: 03/15/21 20:19 Dose: 5 mg/hr, 50 mls/hr Documented by: [id number] Cosigned by: [id number] Discontinued Medications Labetalol HCl (Labetalol Hcl Iv 5 Mg/Ml 20ml) 10 mg IV NOW STA Stop: 03/15/21 19:25 Last Admin: 03/15/21 20:11 Dose: Not Given Documented by: [id number] Imaging Data Radiologist's Impression: Head CT 03/15/21 16:16 CT head/brain wo con CLINICAL HISTORY: Stroke Like Symptoms Technique: Contiguous axial CT images of the head were acquired from the base of the skull to the vertex without intravenous contrast administration. Images were viewed in brain, subdural and bone windows. Automated dose lowering techniques and/or adjustment according to patient size were utilized for this exam. Comparison: Comparison is made to CT head 03/09/2021 Findings: Areas of decreased attenuation are present in the periventricular and subcortical white matter bilaterally consistent with small vessel ischemic disease. Generalized cerebral atrophy with commensurate enlargement of the ventricles, sulci, and cisterns is also present. There is no acute intracranial hemorrhage or evidence of acute territorial infarction. No shift of the midline structures, mass effect, or extra-axial abnormalities are shown. Atherosclerotic calcifications are present in the intracranial segments of the internal carotid arteries. In the interval, there is slight increased prominence of subarachnoid hemorrhage of the left frontal lobe. No midline shift is seen. Imaged portions of the paranasal sinuses and mastoid air cells are clear. The orbits appear normal. Postsurgical changes are seen in the right frontal and temporal calvaria. Impression: Interval slight increase in left frontal subarachnoid hemorrhage without midline shift. Chronicity of this hemorrhage between and March 09 cannot be determined, but acute rebleed cannot be excluded. No new sites of hemorrhage are seen. ACT 112: Negative or not required by law. Electronically signed by: Porfirio Becerra M.D. 03/15/2021 4:44 PM Discharge Plan Visit Data Chief Complaint: Stroke/CVA Symptoms ED Provider: Ben Zelaya Discharge Problem: Acute CVA (cerebrovascular accident), HTN (hypertension), SAH (subarachnoid hemorrhage) Patient Disposition: Admitted As Inpatient Discharge Instructions Interventions: ED Discharge Assessment Last Done: 03/15/21 22:00 Discharge Problem: HTN (hypertension) Qualifiers: Hypertension type: unspecified Qualified Code(s): I10 - Essential (primary) hypertension
[2021-03-15 17:20] LABS: Partial Thromboplastin Ratio 0.9; Partial Thromboplastin Time 24.7 Seconds (21.0-31.0); Prothrombin Time 10.6 Seconds (9.0-12.0)
[2021-03-15 17:28] LABS: Basophils # (auto) 0.04 K/uL (0-0.2); Basophils % (auto) 0.6 %; Eosinophils % (auto) 8.4 %; Hematocrit (blood only) 42.1 % (37-47); Hemoglobin 14.2 g/dL (12.0-16.0); Immature Granulocytes # (auto) 0.03 K/uL (0.00-0.02); Immature Granulocytes % (auto) 0.4 %; Lymphocytes # (auto) 2.08 K/uL (1.2-3.4); Lymphocytes % (auto) 29.1 %; Mean Corpuscular Hgb Conc 33.7 g/dL (32-36); Mean Corpuscular Volume 94.8 fL (80-100); Mean Platelet Volume 9.3 fL (7.4-10.4); Monocytes # (auto) 0.61 K/uL (0.11-0.59); Monocytes % (auto) 8.5 %; Neutrophils # (auto) 3.78 K/uL (1.4-6.5); Platelet Count 219 K/uL (130-400); RDW Coefficient of Variation 12.6 % (11.5-14.5); RDW Standard Deviation 43.7 fL (36.4-46.3); Red Blood Count 4.44 M/uL (4.2-5.4); Troponin I < 0.03 ng/ml (0-0.04); White Blood Count 7.14 K/uL (4.8-10.8)
[2021-03-15 17:35] LABS: Alanine Aminotransferase 15 U/L (7-52); Albumin Globulin Ratio 1.5 (0.9-2); Albumin Level 3.8 gm/dl (3.4-5.0); Alkaline Phosphatase 97 U/L (34-104); Anion Gap 3 (3-11); Aspartate Aminotransferase 17 U/L (13-39); BUN Creatinine Ratio 22.8 (10-20); Bilirubin,Total 0.4 mg/dl (0.2-1.0); Blood Urea Nitrogen 18 mg/dl (6-23); Calcium 9.2 mg/dl (8.5-10.1); Carbon Dioxide 30 mmol/L (21-32); Chloride 109 mmol/L (98-107); Creatinine Clr Calc Pharmacy 46.5 ml/min; Est GFR (African American) 79.1 ml/min; Est GFR (Non-African American) 68.3 ml/min; Globulin 2.5 gm/dl (2.5-4.0); Glucose 90 mg/dl (70-99(Fasting)); Potassium 3.9 mmol/L (3.5-5.1); Sodium 142 mmol/L (136-145); Total Protein 6.3 gm/dl (6.0-8.3)
[2021-03-15] MEDS ORDERED: STAT IV Infusion **Titration per Protocol STA (19:58)
[2021-03-15] MEDS: LABETALOL HCL IV 5 MG/ML 20ML IV STA ×2 (20:09→20:11)
[2021-03-15] MEDS: niCARdipine 25 MG in SODIUM CHLORIDE 0.9% 240 ML IV SCH ×2 (20:19→22:54)
--- NOTE | 2021-03-15 20:44 | History & Physical Report ---
Date of Service March 15, 2021 Assessment & Plan (1) Acute spontaneous subarachnoid intracranial hemorrhage: Plan: Left frontal SAH - initial dx 03/09/21. Transferred to neuro ICU at [facility] that evening, hospitalized at [facility] from 03/10 to 03/12. no surgical intervention needed. Returns today with right hand numbness, numbness of tongue, slurred speech overnight last pm, diplopia earlier today, and marked elevation in BP. All neuro symptoms resolved during my assessment except for the tongue numbness. CT head today shows mild increase in size of the SAH in comparison to 03/09/21 CT head done at [facility]. However, [facility] neurology reports that the SAH on today's CT is the same as the most recent CT head done in [place]. Transfer to [facility] was declined / not recommended by neurology at [facility]. Dr Ben Zelaya - ER attending - discussed Ms Aguilar's care with [facility] Neurology. The recurrent symptoms are concerning for ongoing vasospasm/ischemia to the left frontal region. Cannot exclude a small stroke in that region (unable to obtain MRI brain due to pacemaker status). Plan - * admit to ICU * start nicardipine drip for HTN emergency; SBP goal 140 this evening * clear liquid diet only * 1 L NSS then saline lock * serial neuro checks * CT head in am, sooner if any worsening in neuro symptoms * formal [facility] [place] consult in am with Dr Watson I discussed the pt's care with on-call neurology, Dr Watson, as well as the critical care provider Bienvenido Burton. (2) Numbness of right hand: Plan: see above (3) Hypertensive emergency without congestive heart failure: Plan: In light of ongoing/recurrent neurological symptoms and SAH - start nicardipine drip with SBP goal of 140 this evening. Hold her ARB. Admit to ICU for nicardipine titration. (4) Memory loss: Plan: Suspect she has vascular dementia in light of numerous brain insults as noted in the HPI. (5) Depression with anxiety: Plan: Cont effexor, buspar, clonazepam prn, zyprexa. (6) Epilepsy: Plan: Follows with Dr Watson, [facility] [place]. Cont keppra 500mg BID. [facility] neurology recommended ongoing use of such. (7) History of sick sinus syndrome: Plan: pacemaker in place (8) GERD (gastroesophageal reflux disease): Plan: PPI (9) Hypertension: Plan: see #3 above (10) Hypothyroidism, unspecified: Plan: TSH minimally elevated in 01/2021. Recommend repeat as outpatient. Cont synthroid. (11) DVT prophylaxis: Plan: SCDs chemical means contraindicated Plan: pt's updated at bedside critical care time 60 minutes - complex medical care, complex care coordination, HTN emergency/SAH, etc. History of Present Illness Chief Complaint: right hand numbness, weakness Primary Care Provider: Cass Anne, DO 86yo female with complex neurological history including the following - * 08/2013 - traumatic right-sided SDH over the temporal region, s/p craniotomy with evacuation * 02/2014 - left parietal intracerebral hemorrhage, also due to trauma * 03/09/2021 - left frontal SAH, nontraumatic Patient had presented to [facility] on 03/09/21 with right ear and right hand numbness. She also had had slurred speech per records. CT head showed L frontal SAH. Transferred to neuro ICU at [facility]. She was hospitalized there from 03/10 to 03/11. CTAs did not show aneurysm or vascular malformation. MRI unable to be obtained 2nd to pacemaker status. Neurosurgery did not advise evacuation /intervention. SAH was presumed to be from cerebral amyloid angiopathy. Afternoon of 03/11 was discharged, and while getting into the car with her , experienced slurred speech again, confusion, and b/l lower extremity weakness. She was readmitted to [facility] that afternoon and released the next day. It was felt that the episode of weakness/confusion on 03/11 was due to orthostatic hypotension. The patient's reports that she was stable on Sunday pm following her 2nd hospital discharge as well as Sunday/Sunday. However, Sunday pm, she apparently had slurred speech "all night." Sunday afternoon - home health nurse was visiting her. She was asked to sign some paper work. When she went to hold the pen to sign the paperwork she noted numbness of the right hand along with weakness. This persisted, and her brought her to [facility] for evaluation. In the ER her head CT showed the left frontal SAH and it was modestly larger in comparison to the previous CT done at [facility] on 03/09/21. Neurology was contacted at [facility] twice, and the CT done this evening was compared with the most recent CT done at [facility]. Neurology at [facility] stated that the CT tonight is unchanged from the CTs done at [facility]. [facility] Neurology felt that the patient could safely stay at [facility]. During my admission assessment the patient states that her right hand numbness is improved. However, she now has numbness of the tongue. She also states that she had double vision earlier today while watching TV. The characters on TV would be double. Denies any headache, visual loss or field cuts, left sided numbness/weakness, RLE weakness/numbness, or vertigo. Allergies Allergy/AdvReac Type Severity Reaction Status Date / Time levetiracetam [From [facility]] Allergy Unknown Unknown Verified 03/15/21 17:02 lisinopril Allergy Unknown UNKNOWN Verified 03/15/21 17:02 amoxicillin AdvReac Intermediate GI UPSET Verified 03/15/21 17:02 clavulanic acid AdvReac Intermediate GI UPSET Verified 03/15/21 17:02 donepezil AdvReac Intermediate NAUSEATED Verified 03/15/21 17:02 lamotrigine AdvReac Intermediate TIREDNESS Verified 03/15/21 17:02 tramadol AdvReac Intermediate GI UPSET Verified 03/15/21 17:02 hydrochlorothiazide AdvReac Unknown Unknown. Verified 03/15/21 17:02 triamterene AdvReac Unknown Unknown. Verified 03/15/21 17:02 Home Medications Medication Instructions Recorded Confirmed Type acetaminophen 325 mg tablet 650 mg PO Q4H PRN tab 03/25/19 03/15/21 History (Tylenol) levothyroxine 100 mcg tablet 100 mcg PO QAM #90 tab 11/10/20 03/15/21 Rx atorvastatin 40 mg tablet 40 mg PO QAM #90 tab 11/19/20 03/15/21 Rx valsartan 320 mg tablet 320 mg PO HS #90 tab 12/03/20 03/15/21 Rx venlafaxine 150 mg tablet,extended 150 mg PO QAM 03/09/21 03/15/21 History release 24 hr venlafaxine 75 mg capsule,extended 75 mg PO QAM 03/09/21 03/15/21 History release 24 hr buspirone 15 mg tablet 15 mg PO BID 03/15/21 03/15/21 History clonazepam 1 mg tablet 0.25 mg PO DAILY PRN tab 03/15/21 03/15/21 History levetiracetam 500 mg tablet 500 mg PO BID #60 tab 03/15/21 03/15/21 Rx olanzapine 2.5 mg tablet 2.5 mg PO HS tab 03/15/21 03/15/21 History Past Med/Surg History Medical History (Updated 03/15/21 @ 22:45 by Magdaleno Hayden) Carotid atherosclerosis Cognitive disorder Depression with anxiety Diverticulosis Dyslipidemia Encephalomalacia Epilepsy F/U DR WATSON-LAST ONE 2013? 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, traumatic History of sick sinus syndrome s/p PPM History of subdural hemorrhage right temporal region, s/p craniotomy/evacuation; SDH 2nd trauma; 08/2013 History of TIA (transient ischemic attack) (2013) Hypertension Hypothyroidism, unspecified Insomnia Memory loss Osteoarthritis Partial seizures Urinary incontinence Vitamin D deficiency Surgical History H/O craniotomy r sided w/ removal of subdural hematoma, temporal intraparenchymal hemorrhage, 08/18/2013 History of right hip replacement (03/2019) Hx of hysterectomy S/P cholecystectomy S/P tonsillectomy Status post biventricular cardiac pacemaker insertion 1991, battery change 2007 & 07/2018 Status post Mohs surgery Family History Mother Hypertension Father Heart disease Myocardial infarction Brother Heart disease Family history of diabetes mellitus Myocardial infarction Sister Heart disease Hypertension Family history of diabetes mellitus Breast cancer Myocardial infarction Brother Myocardial infarction Sister Myocardial infarction Son , Sep 2020 COPD (chronic obstructive pulmonary disease) Brain bleed Denies family history of Ovarian cancer Prostate cancer Colorectal cancer Social History Smoking Status: Never smoker Second Hand Exposure: Yes (FAMILY SMOKES); Hx Alcohol Use: No Hx Substance Use: No Preferred Language: Slovenian Communication Ability: Effective Visual Impairment: Limited Hearing Ability: Normal Corporate Administrative Assistant Required: No Beliefs That Will Affect Care: None marital status: Current Living Situation: Family Current Living Situation Comment: spouse, 2 grandsons current occupational status: retired Feels Safe at Home: Yes Childhood Exposure to Second-Hand Smoke: Yes caffeine: Yes (Seldom coffee, tea, or soda. ) during the past year weight has: remained stable Dental Care, Regularly: Yes Physical Activity Frequency: Daily Seatbelt Use: always Sunscreen Use: Yes Assistive Devices: Glasses Review of Systems Review of Systems: gen - no fevers/chills, eating well over the last few days, no weight loss eyes - double vision earlier today, now resolved; no blurry vision HENT - no dysphagia, no ear pain/sore throat; no loss of taste/smell neck - no pain cv - no chest pain pulm - no cough or dyspnea GI - no N/V/D/abd pain - no dysuria musculo - denies pain in any joint skin - no rash neuro - no headache endo - no diabetes Physical Exam Physical Exam: gen - NAD, mildly confused eyes - PERRL; I do not appreciate any strabismus/palsy; EOMI HENT - MMM, no lesions neck - no JVD heart - RRR, s1 s2, no murmur lungs - CTA b/l abd - soft NT ND BS+ ext - no edema, pulses 2+ b/l skin - no rash neuro - no facial droop; CN 3-12 intact; strength handgrip 5/5 b/l; strength 5/5 x 4 extremities; sensation intact light touch b/l upper & lower extremities; no ataxia finger/nose/finger maneuver; gait not tested psych - awake, alert, oriented to person/place; not oriented to time lymph - no cervical lymphadenopathy Results & Data Results & Data ([facility]) Vital Signs (Past 12 Hours) Vital Signs Temp Pulse Resp BP Pulse Ox 03/15/21 20:30 81 18 179/76 H 98 03/15/21 20:22 71 18 200/86 H 97 03/15/21 20:11 75 17 196/108 H 99 03/15/21 20:08 95 03/15/21 19:45 68 18 202/87 H 97 03/15/21 19:30 68 18 186/84 H 99 03/15/21 19:15 68 17 185/105 H 97 03/15/21 19:00 68 15 199/84 H 99 03/15/21 18:45 68 15 190/90 H 98 03/15/21 18:30 69 16 175/88 H 98 03/15/21 18:15 68 13 186/88 H 96 03/15/21 18:00 65 15 208/92 H 96 03/15/21 17:45 65 13 183/84 H 97 03/15/21 17:30 69 12 166/89 H 95 03/15/21 17:15 68 12 174/80 H 95 03/15/21 16:35 36.9 C 71 20 173/82 H 98 Laboratory Results Laboratory Results - last 24 hr 03/15/21 03/15/21 03/15/21 16:46 16:46 16:46 WBC 7.14 RBC 4.44 Hgb 14.2 Hct 42.1 MCV 94.8 MCH 32.0 MCHC 33.7 RDW Std Deviation 43.7 RDW Coeff of Carmen 12.6 Plt Count 219 MPV 9.3 Immature Gran % (Auto) 0.4 Neut % (Auto) 53.0 Lymph % (Auto) 29.1 [place] % (Auto) 8.5 Eos % (Auto) 8.4 Baso % (Auto) 0.6 Neut # (Auto) 3.78 Lymph # (Auto) 2.08 [place] # (Auto) 0.61 H Eos # (Auto) 0.60 H Baso # (Auto) 0.04 Immature Gran # (Auto) 0.03 H PT 10.6 INR 1.0 APTT 24.7 PTT Ratio 0.9 Sodium 142 Potassium 3.9 Chloride 109 H Carbon Dioxide 30 Anion Gap 3 BUN 18 Creatinine 0.79 Est Cr Clr Drug Dosing 46.5 Est GFR ( Amer) 79.1 Est GFR (Non-Af Amer) 68.3 BUN/Creatinine Ratio 22.8 H Glucose 90 Calcium 9.2 Magnesium 2.0 Total Bilirubin 0.4 AST 17 ALT 15 Alkaline Phosphatase 97 Troponin I < 0.03 Total Protein 6.3 Albumin 3.8 Globulin 2.5 Albumin/Globulin Ratio 1.5 Nasal Screen MRSA (PCR) SARS-CoV-2, RNA, NAAT 03/15/21 03/15/21 17:30 22:15 WBC RBC Hgb Hct MCV MCH MCHC RDW Std Deviation RDW Coeff of Carmen Plt Count MPV Immature Gran % (Auto) Neut % (Auto) Lymph % (Auto) [place] % (Auto) Eos % (Auto) Baso % (Auto) Neut # (Auto) Lymph # (Auto) [place] # (Auto) Eos # (Auto) Baso # (Auto) Immature Gran # (Auto) PT INR APTT PTT Ratio Sodium Potassium Chloride Carbon Dioxide Anion Gap BUN Creatinine Est Cr Clr Drug Dosing Est GFR ( Amer) Est GFR (Non-Af Amer) BUN/Creatinine Ratio Glucose Calcium Magnesium Total Bilirubin AST ALT Alkaline Phosphatase Troponin I Total Protein Albumin Globulin Albumin/Globulin Ratio Nasal Screen MRSA (PCR) Pending SARS-CoV-2, RNA, NAAT NEGATIVE Diagnostic Findings Head CT 03/15/21 16:16 CT head/brain wo con CLINICAL HISTORY: Stroke Like Symptoms Technique: Contiguous axial CT images of the head were acquired from the base of the skull to the vertex without intravenous contrast administration. Images were viewed in brain, subdural and bone windows. Automated dose lowering techniques and/or adjustment according to patient size were utilized for this exam. Comparison: Comparison is made to CT head 03/09/2021 Findings: Areas of decreased attenuation are present in the periventricular and subcortical white matter bilaterally consistent with small vessel ischemic disease. Generalized cerebral atrophy with commensurate enlargement of the ventricles, sulci, and cisterns is also present. There is no acute intracranial hemorrhage or evidence of acute territorial infarction. No shift of the midline structures, mass effect, or extra-axial abnormalities are shown. Atherosclerotic calcifications are present in the intracranial segments of the internal carotid arteries. In the interval, there is slight increased prominence of subarachnoid hemorrhage of the left frontal lobe. No midline shift is seen. Imaged portions of the paranasal sinuses and mastoid air cells are clear. The orbits appear normal. Postsurgical changes are seen in the right frontal and temporal calvaria. Impression: Interval slight increase in left frontal subarachnoid hemorrhage without midline shift. Chronicity of this hemorrhage between and March 09 cannot be determined, but acute rebleed cannot be excluded. No new sites of hemorrhage are seen. ACT 112: Negative or not required by law. Electronically signed by: Porfirio Becerra M.D. 03/15/2021 4:44 PM EKG - 03/09/21 - NSR, first degree AV block, no ST changes Code Status & VTE Plan Code Status full code VTE Prophylaxis Plan VTE Prophylaxis will be ordered: Yes Critical Care Time Critical Care Time: Yes 60 PG Care Time/CCT Total # of Minutes Spent Total Time Spent with Patient: Total time spent is greater than 50% in coordination of care (as documented) at patient's floor/unit and/or counseling patient: Critical Care Time: Yes Coding Level of Care Code None Diagnoses Acute spontaneous subarachnoid intracranial hemorrhage I60.9 Numbness of right hand R20.0 Hypertensive emergency without congestive heart failure I16.1 Memory loss R41.3 Depression with anxiety F41.8 Epilepsy G40.909 History of sick sinus syndrome Z86.79 GERD (gastroesophageal reflux disease) K21.9 Hypertension I10 Hypertension type: essential hypertension Hypothyroidism, unspecified E03.9 DVT prophylaxis Z29.9 Additional Codes Critical Care Time - Critical Care Time: Yes ([id number]) (1) Hypertension Hypertension type: essential hypertension Qualified Code(s): I10 - Essential (primary) hypertension
[2021-03-15] MEDS ORDERED: ACETAMINOPHEN 325 MG TAB PO PRN (22:25)
[2021-03-15] MEDS ORDERED: ICU PROTOCOL FOR HYPERGLYCEMIA PRN (22:25)
[2021-03-15] MEDS ORDERED: bisacodyL 10 MG SUPP PR PRN (22:25)
[2021-03-15] MEDS ORDERED: clonazePAM 0.25 MG TAB PO PRN (22:25)
[2021-03-15] MEDS: SODIUM CHLORIDE 0.9% 1000ML 1,000 ML IV SCH (23:23)
[2021-03-15] MEDS: busPIRone 15 MG TAB PO SCH (23:24)
[2021-03-15] MEDS: OLANZAPINE 2.5 MG TAB PO SCH (23:25)
[2021-03-15] MEDS: levETIRAcetam 500 MG TAB PO SCH (23:26)
--- NOTE | 2021-03-15 23:26 | Critical Care Consultation ---
Date of Consultation March 15, 2021 Assessment & Plan (1) Admitted to intensive care unit: Reason Critically Ill: 86-year-old female presenting with concern symptoms of RIGHT hand numbness, garbled speech, diplopia, and hypertensive emergency with recent subarachnoid hemorrhage requiring close hemodynamic monitoring and frequent neuro checks. NEURO - * [facility] ICU: NEGATIVE * Subarachnoid hemorrhage: * Diagnosed on 03/09. Patient transferred to [facility] at that point. She underwent evaluation, but no surgical intervention was necessary at that time. The patient does carry history of prior intracranial hemorrhages secondary to trauma in 2013 in 2014. Patient was monitored closely and discharged home. Patient noted to have garbled speech, RIGHT hand numbness, and RIGHT-sided weakness. CT brain today suggest possible slight progression of subarachnoid hemorrhage. Case discussed with Jerzy who does not recommend transfer at this time. * Patient on nicardipine drip. Agree with goal systolics 140-160. * Frequent neuro checks. * Repeat CT head with any changes. Follow-up CT as necessary. * Continue with Robert as patient does carry a history of epilepsy as well. * Appreciate neurology consultation. CARDIAC/VASCULAR - * Hypertensive emergency: * Received labetalol in the emergency department. Nicardipine initiated. Titrate down to maintain systolics 140s to 160s. * Restart home antihypertensives. * HTN, HLD, SSS, * Continue w/ home Rx when appropriate. * Monitor on telemetry. RESPIRATORY - * No history of pulmonary disease. * Saturating well room air. GI/NUTRITION - * Would recommend n.p.o. pending speech evaluation. RENAL/LYTES - * No significant electrolyte derangements * IVF: NSS at 50 mL's per hour - * No concern at this time. ENDO - * No h/o DM * BSGs per unit protocol. ISS --> gtt per unit policy. HEME - * Stable H&H. ID - * No concerns for infectious contribution at this time. LINES/IV ACCESS - * PIVs x2 DVT PROPHYLAXIS - * Hold on anticoagulation in the setting of subarachnoid hemorrhage. * SCDs I have personally spent 35 minutes of critical care time in the direct management of this patient. This is a life/limb threatening event. This includes time spent evaluating patient, direct bedside care, chart review, placing orders, interpretation of diagnostic studies, discussion with consultants, patient, and family members, as well as other required patient management activities. This time is exclusive of all separately billable procedures, and teaching time and separate from and in addition to any other critical care service time. Thank you for allowing us to participate in the care of this patient. Please refer to my attending physician's documentation for any further recommendations. (2) SAH (subarachnoid hemorrhage): (3) Hypertensive emergency without congestive heart failure: (4) Numbness of right hand: (5) Garbled speech: History of Present Illness Attending Physician: Magdaleno Hayden History of Present Illness Patient is an 86-year-old female with complex medical history including prior history of traumatic intracranial hemorrhage in 2013 status post craniotomy with evacuation. Patient had another LEFT parietal intracerebral hemorrhage secondary to trauma in 2014. Patient had presented to this emergency department on 03/09 and found to have an atraumatic LEFT frontal subarachnoid hemorrhage. She was subsequently transferred to [facility] where she was evaluated and felt that no surgical intervention was necessary at that time. Patient was initially set for discharge, but had to stay an additional night secondary to ongoing lightheadedness. Patient has home health care and nurse noted today that she was having weakness and numbness of the RIGHT hand. Apparently, she had been having some slurred speech last evening as well. She was directed to the emergency department for ongoing evaluation. On assessment in the emergency department, the patient was hypertensive. Additionally, repeat CT scan demonstrated slight progression of subarachnoid hemorrhage. This was discussed with [facility] neurosurgery and no intervention was recommended at this time. It was recommended that she have strict blood pressure control and close neuro checks. Patient was started on nicardipine drip for hypertensive emergency. Upon my evaluation in the ICU, the patient is awake, alert, and oriented. She does provide some poor history in regards to recent events related to her subarachnoid hemorrhage and stay at [facility]. Otherwise, she does state that she was having some issues with speech including slurred speech and difficulty forming words. She also reports that she has had some persistent double vision. She states that she was having weakness to the RIGHT side which she reports has improved greatly at this time. She does report some mild persistent RIGHT hand numbness. Otherwise, the patient denies complaints of headaches, dizziness, lightheadedness, blurry vision, chest pain, palpitations, shortness of breath, nausea, vomiting, or fatigue. Allergies Allergy/AdvReac Type Severity Reaction Status Date / Time levetiracetam [From [facility]] Allergy Unknown Unknown Verified 03/15/21 17:02 lisinopril Allergy Unknown UNKNOWN Verified 03/15/21 17:02 amoxicillin AdvReac Intermediate GI UPSET Verified 03/15/21 17:02 clavulanic acid AdvReac Intermediate GI UPSET Verified 03/15/21 17:02 donepezil AdvReac Intermediate NAUSEATED Verified 03/15/21 17:02 lamotrigine AdvReac Intermediate TIREDNESS Verified 03/15/21 17:02 tramadol AdvReac Intermediate GI UPSET Verified 03/15/21 17:02 hydrochlorothiazide AdvReac Unknown Unknown. Verified 03/15/21 17:02 triamterene AdvReac Unknown Unknown. Verified 03/15/21 17:02 Home Medications Medication Instructions Recorded Confirmed Type acetaminophen 325 mg tablet 650 mg PO Q4H PRN tab 03/25/19 03/15/21 History (Tylenol) levothyroxine 100 mcg tablet 100 mcg PO QAM #90 tab 11/10/20 03/15/21 Rx atorvastatin 40 mg tablet 40 mg PO QAM #90 tab 11/19/20 03/15/21 Rx valsartan 320 mg tablet 320 mg PO HS #90 tab 12/03/20 03/15/21 Rx venlafaxine 150 mg tablet,extended 150 mg PO QAM 03/09/21 03/15/21 History release 24 hr venlafaxine 75 mg capsule,extended 75 mg PO QAM 03/09/21 03/15/21 History release 24 hr buspirone 15 mg tablet 15 mg PO BID 03/15/21 03/15/21 History clonazepam 1 mg tablet 0.25 mg PO DAILY PRN tab 03/15/21 03/15/21 History levetiracetam 500 mg tablet 500 mg PO BID #60 tab 03/15/21 03/15/21 Rx olanzapine 2.5 mg tablet 2.5 mg PO HS tab 03/15/21 03/15/21 History Patient History Medical History Carotid atherosclerosis Cognitive disorder Depression with anxiety Diverticulosis Dyslipidemia Encephalomalacia Epilepsy F/U DR CORTÉS-LAST ONE 2013? 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, traumatic History of sick sinus syndrome s/p PPM History of subdural hemorrhage right temporal region, s/p craniotomy/evacuation; SDH 2nd trauma; 08/2013 History of TIA (transient ischemic attack) (2013) Hypertension Hypothyroidism, unspecified Insomnia Memory loss Osteoarthritis Partial seizures Urinary incontinence Vitamin D deficiency Surgical History H/O craniotomy r sided w/ removal of subdural hematoma, temporal intraparenchymal hemorrhage, 08/18/2013 History of right hip replacement (03/2019) Hx of hysterectomy S/P cholecystectomy S/P tonsillectomy Status post biventricular cardiac pacemaker insertion 1991, battery change 2007 & 07/2018 Status post Mohs surgery Family History Mother Hypertension Father Heart disease Myocardial infarction Brother Heart disease Family history of diabetes mellitus Myocardial infarction Sister Heart disease Hypertension Family history of diabetes mellitus Breast cancer Myocardial infarction Brother Myocardial infarction Sister Myocardial infarction Son , Sep 2020 COPD (chronic obstructive pulmonary disease) Brain bleed Denies family history of Ovarian cancer Prostate cancer Colorectal cancer Social History Smoking Status: Never smoker Second Hand Exposure: Yes (FAMILY SMOKES); Hx Alcohol Use: No Hx Substance Use: No Preferred Language: [place]an Communication Ability: Effective Visual Impairment: Limited Hearing Ability: Normal Spray Maker Required: No Beliefs That Will Affect Care: None marital status: Current Living Situation: Family Current Living Situation Comment: spouse, 2 grandsons current occupational status: retired Feels Safe at Home: Yes Childhood Exposure to Second-Hand Smoke: Yes caffeine: Yes (Seldom coffee, tea, or soda. ) during the past year weight has: remained stable Dental Care, Regularly: Yes Physical Activity Frequency: Daily Seatbelt Use: always Sunscreen Use: Yes Assistive Devices: Walker Review of Systems Review of Systems: A complete 10 point review of systems was reviewed with the patient with pertinent positives and negatives as per history of present illness. All else were negative. Physical Exam Physical Exam: VITAL SIGNS - Vital signs and nursing notes were reviewed. GENERAL - 86-year-old female appearing her stated age who is in no acute distress. Communicates well with provider and answers questions appropriately. HEAD - Normocephalic, Atraumatic. EYES - PERRL with EOMI bilaterally. Sclera anicteric. Palpebral conjunctiva pink and moist with no injection noted. EARS - No deformities of external structures noted on gross examination bilaterally. NOSE - Midline and without cyanosis. No epistaxis or purulent drainage noted. MOUTH/OROPHARYNX - Without perioral cyanosis. Buccal mucosa pink and moist and without leukoplakia. Tongue midline with equal elevation of palate bilaterally. NECK - Neck with FROM. Supple to palpation. No lymphadenopathy noted. No nuchal rigidity. LUNGS - Chest wall symmetric without accessory muscle use, intercostals retractions, or central cyanosis. Normal vesicular breath sounds CTA B/L. No wheezes, rales, or rhonchi appreciated. CARDIAC - RRR with S1/S2. No murmur, rubs, or gallops appreciated. ABDOMEN - Abdominal contour flat without pulsations or visible masses. BS normoactive all four quadrants. No tenderness, palpable masses, hepatosplenomegaly, or ascites noted. EXTREMITIES - No pretibial edema present. +3/5 radial and dorsalis pedis pulses palpated throughout. +5/5 strength noted in UE/LE bilaterally. NEUROLOGIC - Cranial nerves II through XII grossly intact. Sensory intact to light touch throughout. Patient able to perform rapid alternating movements a ppropriately. Negative Drift. PSYCH - A&O to person, place, and . Slightly confused about recent [facility] hospitalization. Pt is very pleasant and interacts well with examiner. Results & Data Results & Data ([facility]) Vital Signs (Past 12 Hours) Vital Signs Temp Pulse Pulse Resp BP BP Pulse Ox 03/15/21 23:15 78 19 136/59 L 95 03/15/21 22:50 78 17 93 03/15/21 22:45 122/55 L 03/15/21 22:40 78 12 96 03/15/21 22:30 78 16 111/52 L 97 03/15/21 22:29 80 14 114/50 L 97 03/15/21 22:27 36.7 C 80 17 143/59 H 97 03/15/21 22:25 78 03/15/21 22:20 97 03/15/21 22:18 136/81 99 03/15/21 22:17 91 03/15/21 21:57 118/53 L 03/15/21 21:55 88 22 95 03/15/21 21:30 81 16 125/52 L 93 03/15/21 21:00 122/61 03/15/21 20:51 77 14 124/71 98 03/15/21 20:30 81 18 179/76 H 98 03/15/21 20:22 71 18 200/86 H 97 03/15/21 20:11 75 17 196/108 H 99 03/15/21 20:08 95 03/15/21 19:45 68 18 202/87 H 97 03/15/21 19:30 68 18 186/84 H 99 03/15/21 19:15 68 17 185/105 H 97 03/15/21 19:00 68 15 199/84 H 99 03/15/21 18:45 68 15 190/90 H 98 03/15/21 18:30 69 16 175/88 H 98 03/15/21 18:15 68 13 186/88 H 96 03/15/21 18:00 65 15 208/92 H 96 03/15/21 17:45 65 13 183/84 H 97 03/15/21 17:30 69 12 166/89 H 95 03/15/21 17:15 68 12 174/80 H 95 03/15/21 16:35 36.9 C 71 20 173/82 H 98 Coding Level of Care Code Critical Care 1st 30-74 mins Diagnoses Admitted to intensive care unit Z78.9 SAH (subarachnoid hemorrhage) I60.9 Hypertensive emergency without congestive heart failure I16.1 Numbness of right hand R20.0 Garbled speech R47.89 Time Spent (min) 35
[2021-03-16] MEDS ORDERED: SODIUM CHLORIDE 0.9% 1000ML 250 ML IV ONE (00:28)
--- NOTE | 2021-03-16 00:31 | Communication Note ---
Date of Service: March 16, 2021 0025: Was alerted by nursing staff that the patient was having slurred speech. On assessment, the patient seemed to be experiencing garbled speech and d ifficulty with word finding. On exam, the patient had new weakness of the RIGHT upper extremity as well as RIGHT-sided facial droop. Patient is able to understand conversation, but unable to appropriately respond. Patient was ordered a 250 cc normal saline bolus as her blood pressure was in the 1 teens. Nicardipine drip discontinued. Emergent CT noncontrast of the head was obtained. Stroke alert was not called as the patient did undergo extensive evaluation already and the patient is not a candidate for thrombolytics secondary to ongoing SAH. Did receive a call from stat rad at [phone]. Per the review with recent imaging, providers did not feel as though the ICH has progressed since earlier scan today. She does, however, feel as though the ICH did expand somewhat from initial scan on 03/09. Patient was reassessed upon returning from CT. Her speech has improved greatly. Her facial droop has nearly resolved. She has full wire communications engineer strength bilaterally. She is communicative. Will aim to maintain ongoing systolics greater than 130. I have personally spent 40 minutes of critical care time in the direct management of this patient. This is a life/limb threatening event. This includes time spent evaluating patient, direct bedside care, chart review, placing orders, interpretation of diagnostic studies, discussion with consultants, patient, and family members, as well as other required patient management activities. This time is exclusive of all separately billable procedures, and teaching time and separate from and in addition to any other critical care service time. Coding Level of Care Code Critical Care 1st 30-74 mins Time Spent (min) 40
[2021-03-16] MEDS: LEVOTHYROXINE SODIUM 100 MCG TABLET PO SCH (05:10)
[2021-03-16 05:31] LABS: Basophils # (auto) 0.02 K/uL (0-0.2); Basophils % (auto) 0.3 %; Eosinophils # (auto) 0.66 K/uL (0-0.5); Eosinophils % (auto) 8.9 %; Hematocrit (blood only) 40.9 % (37-47); Hemoglobin 13.7 g/dL (12.0-16.0); Immature Granulocytes # (auto) 0.02 K/uL (0.00-0.02); Immature Granulocytes % (auto) 0.3 %; Lymphocytes # (auto) 2.15 K/uL (1.2-3.4); Lymphocytes % (auto) 29.1 %; Mean Corpuscular Hemoglobin 31.5 pg (25-34); Mean Corpuscular Hgb Conc 33.5 g/dL (32-36); Monocytes # (auto) 0.44 K/uL (0.11-0.59); Monocytes % (auto) 5.9 %; Neutrophils # (auto) 4.11 K/uL (1.4-6.5); Neutrophils % (auto) 55.5 %; Platelet Count 205 K/uL (130-400); RDW Coefficient of Variation 12.5 % (11.5-14.5); RDW Standard Deviation 43.2 fL (36.4-46.3); Red Blood Count 4.35 M/uL (4.2-5.4)
[2021-03-16 05:48] LABS: BUN Creatinine Ratio 19.7 (10-20); Calcium 8.5 mg/dl (8.5-10.1); Creatinine Clr Calc Pharmacy 45.8 ml/min; Est GFR (Non-African American) 77.7 ml/min; Magnesium 1.9 mg/dl (1.7-2.4); Phosphorus 3.1 mg/dl (2.5-4.9); Potassium 3.8 mmol/L (3.5-5.1)
--- NOTE | 2021-03-16 07:28 | CT Scan Report ---
CT head/brain wo con CLINICAL HISTORY: RIGHT sided weakness . Worsening altered mental status with slurred speech. Follow- up subarachnoid hemorrhage COMPARISON STUDY: 03/15/2021 CT DOSE: 537.48 mGy.cm TECHNIQUE: Standard CT of the Brain was performed without IV contrast. A dose lowering technique was utilized adhering to the principles of ALARA. FINDINGS: Extraaxial space: There is no evidence for subdural hematoma. There are no extra-axial fluid collecti ons. Ventricles and cisterns: The ventricles are normal in size and configuration. There is no evidence f or midline shift or mass effect. Parenchyma: Compared to the previous examination, there is slight increase in the amount of subarach noid blood seen within the left frontal parietal lobe. Increasing surrounding edema is also present w ith slight increased effacement of sulci and gyri. There is no other evidence for an acute infarct or additional bleeding. There is mild cerebral cortical atrophy and decreased attenuation in the perive ntricular white matter representing remote small vessel disease. There are no gross mass lesions. Osseous structures: Postsurgical changes from previous craniotomy on the right are again seen. There is no evidence for an acute fracture. The visualized paranasal sinuses are clear. The mastoid air abdulaziz ls are clear bilaterally. Soft tissues: There is no evidence for focal soft tissue swelling. IMPRESSION: Compared to yesterday study, there has been slight interval increase in the amount of sub arachnoid hemorrhage within the left frontal parietal lobe. Increasing surrounding edema with increas ed effacement of the sulci and gyri is also seen. ACT 112: Negative or not required by law. Electronically signed by: Justyn Gilliam M.D. 03/16/2021 7:27 AM
[2021-03-16] MEDS: ATORVASTATIN 40 MG TAB PO SCH (08:02)
[2021-03-16] MEDS: busPIRone 15 MG TAB PO SCH ×2 (08:02→19:51)
[2021-03-16] MEDS: PANTOprazole 40 MG TAB PO SCH (08:02)
[2021-03-16] MEDS: levETIRAcetam 500 MG TAB PO SCH ×2 (08:02→19:51)
[2021-03-16] MEDS: POLYETHYLENE (MIRALAX) 17 GM PACK PO SCH (08:03)
[2021-03-16] MEDS: VENLAFAXINE HCL XR 75 MG CAPXR PO SCH (08:03)
[2021-03-16] MEDS: VENLAFAXINE HCL XR 150 MG CAPXR PO SCH (08:03)
--- NOTE | 2021-03-16 09:24 | Neurology Consultation ---
Date of Consultation March 16, 2021 Assessment & Plan (1) SAH (subarachnoid hemorrhage): (2) Acute CVA (cerebrovascular accident): (3) Cerebral amyloid angiopathy: Subacute left frontoparietal subarachnoid hemorrhage, slight interval increase in size noted during current hospitalization. Underlying pathology likely cerebral amyloid angiopathy. Does not appear to have a significant lobar hemorrhage, however. Minimal hemorrhage associated edema, no shift or mass- effect. Patient is alert and appropriate, does not have signs of significantly increased intracranial pressure. Did have transient horizontal diplopia, however, resolved. Continues to complain of numbness and tingling affecting the right hand and tongue. Does have a chronic left thalamic lacunar infarct which may contribute to right-sided sensory symptoms although reported symptoms could also relate to the left frontoparietal subarachnoid hemorrhage. No clinical signs or symptoms suggestive of seizures. Subarachnoid associated vasospasm may not be completely excluded. Nicardipine was discontinued overnight, however, due to relative hypotension and exacerbation of neurologic symptoms which improved with administration of IV fluids and cessation of nicardipine. Patient unable to have MRI as I believe her cardiac pacemaker is not MRI compatible. Would continue with Keppra 500 mg p.o. twice daily for seizure prophylaxis. Patient should have a follow-up noncontrast CT of the head completed this eveni ng to continue to ensure stability of the left frontoparietal subarachnoid hemorrhage. Continue close monitoring of blood pressure. Nicardipine drip appropriate as this medication may be beneficial in the context of possible subarachnoid hemorrhage associated vasospasm. Would avoid dropping patient's systolic blood pressure much below 140 mmHg if possible. Continue with frequent neuro checks. If patient's subarachnoid hemorrhage increases significantly in size would need to reconsider transfer to a tertiary center for neuro critical care services. History of Present Illness Reason for Consultation: SAH, stroke Requesting Physician: Magdaleno Hayden MD Attending Physician: Teodoro Neri History of Present Illness The patient is an 86-year-old female who was recently discharged from [facility] for monitoring of a recent subarachnoid hemorrhage. She had initially presented to [facility] on March 09 with right- sided numbness, weakness, and slurred speech. A CT of the head at that time revealed a small acute left frontal subarachnoid hemorrhage. There was a chronic left thalamic lacunar infarct as well as an area of stable encephalomalacia within the right cerebral convexity associated with remote craniotomy site. She was discharged from [facility] on March 11, she did not require surgical treatment. Discharge diagnoses included subarachnoid hemorrhage, cerebral angiopathy, and TIA. 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 She was started on Keppra for seizure prophylaxis while at [facility]. She was discharged to home in stable condition. Looks like she was reevaluated at the [facility] emergency department on the day of her discharge on March 11 for an episode of slurred speech, confusion, and lower extremity weakness that persisted for about 10 minutes. She was evaluated by the stroke service at that time and it looks like she was readmitted for observation overnight with symptoms potentially related to orthostatic hypotension. She was treated with IV fluids and subsequently discharged with instructions to continue with Keppra 500 mg twice daily for 1 week for seizure prophylaxis. She presented again to the [facility] emergency department on March 15 complaining of slurred speech and paresthesias affecting the right hand. She also complained of some associated horizontal diplopia, worse at a distance which seem new. She denied headache. She reports that her diplopia has resolved. She continues to report some numbness and tingling affecting the tongue as well as the right hand. A CT of the head completed yesterday revealed a slight interval increase in the previous identified left frontal subarachnoid hemorrhage without midline shift, compared with the previous study at [facility] done on March 09. A follow-up CT of the head completed this morning suggests a slight interval increase in size and the amount of subarachnoid hemorrhage within the left frontoparietal lobe with increasing surrounding edema and effacement of the sulci and gyri compared with the study done yesterday. I did review the images as well as the radiologist interpretation of these tests. The degree of increase is slight. Overnight, the patient did have an episode of slurred speech with associated weakness of the right arm as well as a right facial droop. The right arm weakness was felt to be new. Patient was treated with intravenous normal saline, her nicardipine drip was discontinued. The follow-up emergent CT of the head as above was completed at that time. Patient symptoms had significantly improved upon her return from CT. This morning, the patient continues to deny headache. She reports that her diplopia has resolved. She continues to complain of a mild feeling of numbness affecting the right hand and tongue. Allergies Allergy/AdvReac Type Severity Reaction Status Date / Time levetiracetam [From [facility]] Allergy Unknown Unknown Verified 03/15/21 17:02 lisinopril Allergy Unknown UNKNOWN Verified 03/15/21 17:02 amoxicillin AdvReac Intermediate GI UPSET Verified 03/15/21 17:02 clavulanic acid AdvReac Intermediate GI UPSET Verified 03/15/21 17:02 donepezil AdvReac Intermediate NAUSEATED Verified 03/15/21 17:02 lamotrigine AdvReac Intermediate TIREDNESS Verified 03/15/21 17:02 tramadol AdvReac Intermediate GI UPSET Verified 03/15/21 17:02 hydrochlorothiazide AdvReac Unknown Unknown. Verified 03/15/21 17:02 triamterene AdvReac Unknown Unknown. Verified 03/15/21 17:02 Home Medications Medication Instructions Recorded Confirmed Type acetaminophen 325 mg tablet 650 mg PO Q4H PRN tab 03/25/19 03/15/21 History (Tylenol) levothyroxine 100 mcg tablet 100 mcg PO QAM #90 tab 11/10/20 03/15/21 Rx atorvastatin 40 mg tablet 40 mg PO QAM #90 tab 11/19/20 03/15/21 Rx valsartan 320 mg tablet 320 mg PO HS #90 tab 12/03/20 03/15/21 Rx venlafaxine 150 mg tablet,extended 150 mg PO QAM 03/09/21 03/15/21 History release 24 hr venlafaxine 75 mg capsule,extended 75 mg PO QAM 03/09/21 03/15/21 History release 24 hr buspirone 15 mg tablet 15 mg PO BID 03/15/21 03/15/21 History clonazepam 1 mg tablet 0.25 mg PO DAILY PRN tab 03/15/21 03/15/21 History levetiracetam 500 mg tablet 500 mg PO BID #60 tab 03/15/21 03/15/21 Rx olanzapine 2.5 mg tablet 2.5 mg PO HS tab 03/15/21 03/15/21 History Patient History Medical History Carotid atherosclerosis Cognitive disorder Depression with anxiety Diverticulosis Dyslipidemia Encephalomalacia Epilepsy F/U DR CORTÉS-LAST ONE 2013? 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, traumatic History of sick sinus syndrome s/p PPM History of subdural hemorrhage right temporal region, s/p craniotomy/evacuation; SDH 2nd trauma; 08/2013 History of TIA (transient ischemic attack) (2013) Hypertension Hypothyroidism, unspecified Insomnia Memory loss Osteoarthritis Partial seizures Urinary incontinence Vitamin D deficiency Surgical History H/O craniotomy r sided w/ removal of subdural hematoma, temporal intraparenchymal hemorrhage, 08/18/2013 History of right hip replacement (03/2019) Hx of hysterectomy S/P cholecystectomy S/P tonsillectomy Status post biventricular cardiac pacemaker insertion 1991, battery change 2007 & 07/2018 Status post Mohs surgery Family History Mother Hypertension Father Heart disease Myocardial infarction Brother Heart disease Family history of diabetes mellitus Myocardial infarction Sister Heart disease Hypertension Family history of diabetes mellitus Breast cancer Myocardial infarction Brother Myocardial infarction Sister Myocardial infarction Son , Sep 2020 COPD (chronic obstructive pulmonary disease) Brain bleed Denies family history of Ovarian cancer Prostate cancer Colorectal cancer Social History Smoking Status: Never smoker Second Hand Exposure: Yes (FAMILY SMOKES); Hx Alcohol Use: No Hx Substance Use: No Preferred Language: Bengali Communication Ability: Effective Visual Impairment: Limited Hearing Ability: Normal Adult School Counselor Required: No Beliefs That Will Affect Care: None marital status: Current Living Situation: Family Current Living Situation Comment: spouse, 2 grandsons current occupational status: retired Feels Safe at Home: Yes Childhood Exposure to Second-Hand Smoke: Yes caffeine: Yes (Seldom coffee, tea, or soda. ) during the past year weight has: remained stable Dental Care, Regularly: Yes Physical Activity Frequency: Daily Seatbelt Use: always Sunscreen Use: Yes Assistive Devices: Walker Review of Systems Constitutional: no fever and no chills Eyes: as per Subjective / HPI and + diplopia; no blind spots Ear, Nose, Mouth, Throat: no ear pain and no hearing loss Respiratory: no cough and no dyspnea Cardiovascular: no chest pain and no palpitations Gastrointestinal: no constipation and no diarrhea/loose stools Genitourinary: no urinary urgency and no urinary incontinence Musculoskeletal: no muscle weakness and no muscle atrophy Integumentary: no rash and no lesions Neurologic: as per Subjective / HPI, + localized weakness and + loss of sensation; no seizure-like activity and no headache(s) Psychiatric: no behavioral changes, no depression, no abnormal sleep pattern and no anxiety Hematologic / Lymphatic: no easy bruising and no lymphadenopathy Exam (Neuro) Constitutional: well developed and well nourished; no acute distress Eyes: normal visual grissom by confrontation, PERRL, normal accommodation and E OM intact bilaterally; no fundoscopic abnormality, no nystagmus and no papilledema Cardiovascular: Vessels: normal carotid upstroke; no carotid bruit Neurologic: Oriented to:: Person, Place and Time Memory: Remote Intact; negative Short Term Intact Attention: Span Intact and Concentration Intact Language: Naming Objects and Repeating Phrases Speech Fluency: negative Dysarthria Speech Aphasia: negative Aphasia Fund of Knowledge: Current Events, Past History and Vocabulary Cranial Nerves: Normal II (Visual grissom full to confrontation, visual acuity normal), III, IV, (Pupils equal round reactive to light and accommodation, eye movements normal), V (Facial sensation intact), VIII (Hearing intact), IX, X (Palate elevates to midline), XI (Shoulder shrug intact) and XII (Tongue protrudes to midline); Abnorm VII (There is mild right lower facial weakness) Motor Strength: Normal Lower Extremities and Normal Upper Extremities Motor Tone: Normal Lower Extremities and Normal Upper Extremities Muscle Bulk/Involuntary Movements: No Involuntary Movements; negative Muscle Atrophy Sensation: Light Touch Intact, Pain/Temperature Intact, Vibration Intact and Proprioception Intact Coordination: Normal and Finger-Nose Abnormal Laterality: Right; negative Dysdiadochokinesia or Heel-Cates Abnormal Deep Tendon Reflexes: Rt Triceps: 2+, Lt Triceps: 2+, Rt Biceps: 2+, Lt Biceps: 2+, Rt Brachioradialis: 2+, Lt Brachioradialis: 2+, Rt Patellar: 2+, Lt Patellar: 2+, Rt Ankle: 1+ and Lt Ankle: 1+ Special Tests: Babinski Present (L>R) Details: Gait could not be tested in the context of patient's current neurological status. Right upper extremity parietal drift noted. Results & Data ([facility]) Vital Signs (Past 12 Hours) Vital Signs Temp Pulse Pulse Resp BP BP Pulse Ox 03/16/21 08:00 79 21 97 03/16/21 07:45 76 22 121/68 95 03/16/21 07:16 79 17 127/62 91 03/16/21 07:00 69 8 L 139/67 95 03/16/21 06:30 67 10 L 132/57 L 92 03/16/21 06:20 68 23 92 03/16/21 06:15 70 14 124/58 L 92 03/16/21 06:10 74 23 95 03/16/21 06:00 66 13 140/62 94 03/16/21 05:50 64 15 93 03/16/21 05:45 64 13 119/59 L 91 03/16/21 05:40 67 15 93 03/16/21 05:30 66 13 137/62 93 03/16/21 05:20 67 13 94 03/16/21 05:16 36.7 C 69 17 109/63 93 03/16/21 05:10 73 15 95 03/16/21 05:00 70 13 109/54 L 92 03/16/21 04:50 67 14 92 03/16/21 04:45 68 11 L 109/49 L 93 03/16/21 04:40 71 15 92 03/16/21 04:30 66 15 112/53 L 91 03/16/21 04:20 67 13 91 03/16/21 04:15 68 13 104/51 L 92 03/16/21 04:10 67 12 92 03/16/21 04:00 67 13 119/65 92 03/16/21 03:50 73 18 93 03/16/21 03:45 72 14 111/55 L 91 03/16/21 03:30 69 13 92 03/16/21 03:15 69 12 117/55 L 92 03/16/21 03:00 69 15 113/53 L 92 03/16/21 02:45 69 15 131/56 L 93 03/16/21 02:30 74 11 L 133/63 93 03/16/21 02:15 68 21 127/57 L 91 03/16/21 02:00 68 16 131/65 93 03/16/21 01:45 70 16 130/61 95 03/16/21 01:30 75 20 150/64 H 96 03/16/21 01:15 69 15 133/67 93 03/16/21 01:00 70 14 132/64 96 03/16/21 00:49 70 22 130/66 97 03/16/21 00:30 74 13 127/57 L 93 03/16/21 00:27 78 20 123/60 92 03/16/21 00:20 76 14 93 03/16/21 00:10 72 15 92 03/16/21 00:00 71 15 116/61 94 03/15/21 23:59 71 03/15/21 23:50 72 16 93 03/15/21 23:45 84 19 121/88 96 03/15/21 23:40 87 18 95 03/15/21 23:30 123/54 L 03/15/21 23:15 78 19 136/59 L 95 03/15/21 22:50 78 17 93 03/15/21 22:45 122/55 L 03/15/21 22:40 78 12 96 03/15/21 22:30 78 16 111/52 L 97 03/15/21 22:29 80 14 114/50 L 97 03/15/21 22:27 36.7 C 80 17 143/59 H 97 03/15/21 22:25 78 03/15/21 22:20 97 03/15/21 22:18 136/81 99 03/15/21 22:17 91 03/15/21 21:57 118/53 L 03/15/21 21:55 88 22 95 03/15/21 21:30 81 16 125/52 L 93 Laboratory Results WBC 7.40, hemoglobin 13.7, hematocrit 40.9, platelet count 205, sodium 143, potassium 3.8, BUN 14, creatinine 0.71, glucose 97, calcium 8.5, magnesium 1.9, AST 17, ALT 15, troponin less than 0.[address] of the head completed yesterday and overnight are as described in the history of present illness, I reviewed the images as well as the radiologist's interpretation of these tests. CT angiography of the head and neck completed at [facility] March 09, 2021 revealed multifocal high-grade stenosis of the left posterior cerebral artery with moderate narrowing of the P1 segment of the right posterior cerebral artery, new compared with previous angiogram done in October 2013. Atherosclerotic plaque of the left carotid bulb resulting in approximately 50% stenosis seen. There was high-grade stenosis at the origin of the developmentally diminutive left vertebral artery. Electrocardiogram done overnight revealed a sinus rhythm with first-degree AV block. An ECG done yesterday revealed a normal sinus rhythm with possible left atrial enlargement. Coding Level of Care Code 51483 Initial Inpt Care Lvl 3 Diagnoses SAH (subarachnoid hemorrhage) I60.9 Acute CVA (cerebrovascular accident) I63.9 Cerebral amyloid angiopathy E85.4; I68.0
--- NOTE | 2021-03-16 10:48 | CT Scan Report ---
CT OF THE HEAD WITHOUT CONTRAST CLINICAL HISTORY: AMS in setting of SAH COMPARISON STUDY: Head CT 02/13/2021 at 12:[address] DOSE: 638.56 mGycm TECHNIQUE: Helical axial images of the head were obtained without IV contrast. Automated exposure con trol was utilized for the study. A dose lowering technique was utilized adhering to the principles o f ALARA. FINDINGS: A small amount of acute subarachnoid hemorrhage overlying the left frontal lobe is noted. A ttenuation has slightly decreased since prior head CT. No new sites of hemorrhage are identified on t his examination. Mild sulcal effacement within the left frontal and parietal lobes is unchanged. Ther e is no midline shift. Encephalomalacia within the right temporal lobe is unchanged. Hypodensity with in the right frontal and parietal lobes is chronic. Ventricular system is stable. Basal cisterns are patent. Right sided craniotomy is noted. No acute calvarial fracture. Visualized portions of the sinu ses and mastoid air cells are clear. IMPRESSION: 1. Small amount of acute subarachnoid hemorrhage overlying the left frontal lobe. Slight decrease in attenuation of this hemorrhage since prior exam. No new sites of hemorrhage. 2. No change in mild sulcal effacement within the left frontal and parietal lobes. No midline shift. ACT 112: Negative or not required by law. Electronically signed by: Wiliam Bernabe M.D. 03/16/2021 10:46 AM
[2021-03-16] MEDS: SODIUM CHLORIDE 0.9% 1000ML 1,000 ML IV SCH ×2 (15:48→16:15)
[2021-03-16] MEDS: OLANZAPINE 2.5 MG TAB PO SCH (19:51)
--- NOTE | 2021-03-16 19:51 | Electrocardiogram Report ---
Test Reason : Blood Pressure : / mmHG Vent. Rate : 067 BPM Atrial Rate : 067 BPM P-R Int : 214 ms QRS Dur : 068 ms QT Int : 428 ms P-R-T Axes : 053 000 070 degrees QTc Int : 452 ms Poor data quality, interpretation may be adversely affected Sinus rhythm with 1st degree A-V block Possible Inferior infarct When compared with ECG of 18-FEB-2019 09:27, Minimal criteria for Inferior infarct now present Confirmed by Srinivasa Rodriguez ([id number]) on 03/16/2021 7:50:52 PM Referred By: REFERRED SELF Confirmed By:Srinivasa Rodriguez
--- NOTE | 2021-03-16 22:45 | Hospitalist Progress Note ---
Date of Service March 16, 2021 Assessment & Plan (1) Acute spontaneous subarachnoid intracranial hemorrhage: Plan: On admission Left frontal SAH - initial dx 03/09/21. Transferred to neuro ICU at [facility] that evening, hospitalized at [facility] from 03/10 to 03/12. no surgical intervention needed. Returns today with right hand numbness, numbness of tongue, slurred speech overnight last pm, diplopia earlier today, and marked elevation in BP. All neuro symptoms resolved during my assessment except for the tongue numbness. CT head today shows mild increase in size of the SAH in comparison to 03/09/21 CT head done at [facility]. However, [facility] neurology reports that the SAH on today's CT is the same as the most recent CT head done in [place]. Transfer to [facility] was declined / not recommended by neurology at [facility]. Dr Ben Zelaya - ER attending - discussed Ms Aguilar's care with [facility] Neurology. The recurrent symptoms are concerning for ongoing vasospasm/ischemia to the left frontal region. Cannot exclude a small stroke in that region (unable to obtain MRI brain due to pacemaker status). On 03/16 Patient no longer having slurred speech, continues to have right hand numbness/ Plan is to remain in ICU. recheck CT head today to assess for worsening hemorrhage. appreciate input from Neuro. D/W critical care team. (2) Numbness of right hand: Plan: see above (3) Hypertensive emergency without congestive heart failure: Plan: In light of ongoing/recurrent neurological symptoms and SAH - start nicardipine drip with SBP goal of 140 this evening. Hold her ARB. Admit to ICU for nicardipine titration. (4) Memory loss: Plan: Suspect she has vascular dementia in light of numerous brain insults as noted in the HPI. (5) Depression with anxiety: Plan: Cont effexor, buspar, clonazepam prn, zyprexa. (6) Epilepsy: Plan: Follows with Dr Watson, [facility] Neurology. Cont keppra 500mg BID. [facility] neurology recommended ongoing use of such. (7) History of sick sinus syndrome: Plan: pacemaker in place (8) GERD (gastroesophageal reflux disease): Plan: PPI (9) Hypertension: Plan: see #3 above (10) Hypothyroidism, unspecified: Plan: TSH minimally elevated in 01/2021. Recommend repeat as outpatient. Cont synthroid. (11) DVT prophylaxis: Plan: SCDs chemical means contraindicated Admission and Anticipated Discharge Date Admission Date: March 15, 2021 Subjective Patient continues to have numbness in her right hand. Review of Systems Review of Systems: All systems reviewed & are unremarkable except as noted in HPI & below Physical Exam Physical Exam: gen - NAD, mildly confused eyes - PERRL; I do not appreciate any strabismus/palsy; EOMI HENT - MMM, no lesions neck - no JVD heart - RRR, s1 s2, no murmur lungs - CTA b/l abd - soft NT ND BS+ ext - no edema, pulses 2+ b/l skin - no rash neuro - no facial droop; CN 3-12 intact; strength handgrip 5/5 b/l; strength 5/5 x 4 extremities; sensation intact light touch b/l upper & lower extremities; no ataxia finger/nose/finger maneuver; gait not tested psych - awake, alert, oriented to person/place; not oriented to time lymph - no cervical lymphadenopathy Results & Data Results & Data ([facility]) Vital Signs (Past 12 Hours) Vital Signs Temp Pulse Resp BP Pulse Ox 03/16/21 21:54 37.1 C 03/16/21 21:50 70 21 93 03/16/21 21:45 71 16 132/77 93 03/16/21 21:40 71 19 93 03/16/21 21:30 72 13 157/80 H 93 03/16/21 21:20 72 16 92 03/16/21 21:15 70 18 158/79 H 95 03/16/21 21:10 70 17 93 03/16/21 21:00 70 17 150/78 H 93 03/16/21 20:50 75 16 94 03/16/21 20:45 71 13 161/81 H 93 03/16/21 20:40 72 11 L 94 03/16/21 20:30 72 12 153/75 H 95 03/16/21 20:20 73 19 94 03/16/21 20:15 73 23 147/74 H 96 03/16/21 20:10 77 22 95 03/16/21 20:01 82 24 134/84 94 03/16/21 20:00 83 21 93 03/16/21 19:50 88 18 95 03/16/21 19:47 36.6 C 03/16/21 19:45 95 H 12 138/85 94 03/16/21 19:40 86 24 91 03/16/21 19:30 83 16 94 03/16/21 19:20 91 H 26 H 156/63 H 97 03/16/21 19:10 78 19 93 03/16/21 19:00 78 24 145/64 H 94 03/16/21 18:50 72 16 94 03/16/21 18:49 73 17 179/80 H 93 03/16/21 18:40 71 15 93 03/16/21 18:30 70 12 95 03/16/21 18:20 73 19 96 03/16/21 18:10 87 17 86 L 03/16/21 18:01 70 14 180/71 H 97 03/16/21 18:00 76 20 95 03/16/21 17:00 76 22 160/87 H 98 03/16/21 16:01 70 13 167/91 H 97 03/16/21 16:00 70 21 96 03/16/21 15:00 72 18 131/87 96 03/16/21 14:40 80 18 167/75 H 96 03/16/21 14:00 77 17 134/77 94 03/16/21 13:00 74 13 118/58 L 94 03/16/21 12:29 36.7 C 03/16/21 12:00 76 17 135/68 95 03/16/21 11:30 73 14 95 03/16/21 11:00 77 12 127/63 95 PG Care Time/CCT Total # of Minutes Spent Total Time Spent with Patient: Total time spent is greater than 50% in coordination of care (as documented) at patient's floor/unit and/or counseling patient: Coding Level of Care Code 30560 Subseq Hosp Care Lvl 3 Diagnoses Acute spontaneous subarachnoid intracranial hemorrhage I60.9 Numbness of right hand R20.0 Hypertensive emergency without congestive heart failure I16.1 Memory loss R41.3 Depression with anxiety F41.8 Epilepsy G40.909 History of sick sinus syndrome Z86.79 GERD (gastroesophageal reflux disease) K21.9 Hypertension I10 Hypertension type: essential hypertension Hypothyroidism, unspecified E03.9 DVT prophylaxis Z29.9 Time Spent (min) 35 (1) Hypertension Hypertension type: essential hypertension Qualified Code(s): I10 - Essential (primary) hypertension
[2021-03-17 05:23] LABS: Basophils # (auto) 0.04 K/uL (0-0.2); Basophils % (auto) 0.6 %; Eosinophils # (auto) 0.59 K/uL (0-0.5); Eosinophils % (auto) 8.2 %; Hematocrit (blood only) 39.7 % (37-47); Hemoglobin 13.7 g/dL (12.0-16.0); Immature Granulocytes # (auto) 0.02 K/uL (0.00-0.02); Immature Granulocytes % (auto) 0.3 %; Lymphocytes # (auto) 2.21 K/uL (1.2-3.4); Lymphocytes % (auto) 30.9 %; Mean Corpuscular Hemoglobin 32.1 pg (25-34); Mean Corpuscular Hgb Conc 34.5 g/dL (32-36); Monocytes # (auto) 0.43 K/uL (0.11-0.59); Neutrophils # (auto) 3.87 K/uL (1.4-6.5); Platelet Count 205 K/uL (130-400); Red Blood Count 4.27 M/uL (4.2-5.4); White Blood Count 7.16 K/uL (4.8-10.8)
[2021-03-17 05:40] LABS: BUN Creatinine Ratio 15.5 (10-20); Calcium 8.7 mg/dl (8.5-10.1); Creatinine Clr Calc Pharmacy 49.7 ml/min; Est GFR (Non-African American) 77.7 ml/min; Phosphorus 2.8 mg/dl (2.5-4.9); Potassium 3.6 mmol/L (3.5-5.1)
--- NOTE | 2021-03-17 06:07 | Electrocardiogram Report ---
Test Reason : Blood Pressure : / mmHG Vent. Rate : 072 BPM Atrial Rate : 072 BPM P-R Int : 204 ms QRS Dur : 066 ms QT Int : 396 ms P-R-T Axes : 050 000 063 degrees QTc Int : 433 ms Normal sinus rhythm Possible Left atrial enlargement Inferior infarct (cited on or before 22-JAN-2021) Abnormal ECG When compared with ECG of 09-MAR-2021 18:27, Criteria for Anterior infarct are no longer Present Confirmed by Srinivasa Rodriguez ([id number]) on 03/17/2021 6:07:05 AM Referred By: REFERRED SELF Confirmed By:Srinivasa Rodriguez
[2021-03-17] MEDS: LEVOTHYROXINE SODIUM 100 MCG TABLET PO SCH (06:24)
--- NOTE | 2021-03-17 08:37 | CT Scan Report ---
CT OF THE HEAD WITHOUT CONTRAST CLINICAL HISTORY: f/u SAH COMPARISON STUDY: Head CT March 16, 2021 at 10:[address] DOSE: 537.48 mGy.cm TECHNIQUE: Helical axial images of the head were obtained without IV contrast. Automated exposure con trol was utilized for the study. A dose lowering technique was utilized adhering to the principles o f ALARA. FINDINGS: There has been slight decrease in subarachnoid hemorrhage overlying the left frontal lobe s sonny prior head CT. No new sites of acute hemorrhage are present. Multifocal encephalomalacia within the right cerebral hemisphere is again noted. Ventricular system is stable. Basal cisterns are patent . There are no findings to suggest acute dural sinus thrombosis or acute territorial infarct. Right s ided craniotomy is noted. IMPRESSION: Slight decrease in a small amount of subarachnoid hemorrhage overlying the left frontal lobe. Otherwise, unchanged appearance of the brain. ACT 112: Negative or not required by law. Electronically signed by: Wiliam Bernabe M.D. 03/17/2021 8:35 AM
[2021-03-17] MEDS: levETIRAcetam 500 MG TAB PO SCH ×2 (09:42→20:03)
[2021-03-17] MEDS: PANTOprazole 40 MG TAB PO SCH (09:42)
[2021-03-17] MEDS: VENLAFAXINE HCL XR 150 MG CAPXR PO SCH (09:42)
[2021-03-17] MEDS: VENLAFAXINE HCL XR 75 MG CAPXR PO SCH (09:42)
[2021-03-17] MEDS: ATORVASTATIN 40 MG TAB PO SCH (09:42)
[2021-03-17] MEDS: busPIRone 15 MG TAB PO SCH ×2 (09:42→20:02)
[2021-03-17] MEDS: POLYETHYLENE (MIRALAX) 17 GM PACK PO SCH (09:43)
--- NOTE | 2021-03-17 10:21 | Critical Care Progress Note ---
Date of Service March 17, 2021 Assessment & Plan (1) Admitted to intensive care unit: Plan: Reason Critically Ill: 86-year-old female presenting with concern symptoms of RIGHT hand numbness, garbled speech, diplopia, and hypertensive emergency with recent subarachnoid hemorrhage requiring close hemodynamic monitoring and frequent neuro checks. NEURO - * CAM ICU: NEGATIVE * Subarachnoid hemorrhage: * Stable on CT imaging. * Restart valsartan. * Appreciate neurology consult. CARDIAC/VASCULAR - * Restarted valsartan RESPIRATORY - * No history of pulmonary disease. * Saturating well room air. GI/NUTRITION - * Allow for medications * Will defer diet and nutrition to neurology and primary service RENAL/LYTES - * No significant electrolyte derangements * IVF: NSS at 50 mL's per hour - * No concern at this time. ENDO - * No h/o DM * BSGs per unit protocol. ISS --> gtt per unit policy. HEME - * Stable H&H. ID - * No concerns for infectious contribution at this time. LINES/IV ACCESS - * PIVs x2 DVT PROPHYLAXIS - * Hold on anticoagulation in the setting of subarachnoid hemorrhage. * SCDs Stable for downgrade to the PCU. Discussed with neurology and the hospital service. Discussed on multidisciplinary rounds. (2) SAH (subarachnoid hemorrhage): (3) Hypertensive emergency without congestive heart failure: (4) Numbness of right hand: (5) Garbled speech: Admission and Anticipated Discharge Date Admission Date: March 15, 2021 Subjective She continues to have episodic periods of confabulation and confusion. Currently stable. Hemodynamics are stable. Minimal oxygen requirement. Review of Systems Review of Systems: All systems reviewed & are unremarkable except as noted in HPI & below Physical Exam Physical Exam: VITAL SIGNS - Vital signs and nursing notes were reviewed. GENERAL - 86-year-old female appearing her stated age who is in no acute distress. Communicates well with provider and answers questions appropriately. HEAD - Normocephalic, Atraumatic. EYES - PERRL with EOMI bilaterally. Sclera anicteric. Palpebral conjunctiva pink and moist with no injection noted. EARS - No deformities of external structures noted on gross examination bilaterally. NOSE - Midline and without cyanosis. No epistaxis or purulent drainage noted. MOUTH/OROPHARYNX - Without perioral cyanosis. Buccal mucosa pink and moist and without leukoplakia. Tongue midline with equal elevation of palate bilaterally. NECK - Neck with FROM. Supple to palpation. No lymphadenopathy noted. No nuchal rigidity. LUNGS - Chest wall symmetric without accessory muscle use, intercostals retractions, or central cyanosis. Normal vesicular breath sounds CTA B/L. No wheezes, rales, or rhonchi appreciated. CARDIAC - RRR with S1/S2. No murmur, rubs, or gallops appreciated. ABDOMEN - Abdominal contour flat without pulsations or visible masses. BS normoactive all four quadrants. No tenderness, palpable masses, hepatosplenomegaly, or ascites noted. EXTREMITIES - No pretibial edema present. +3/5 radial and dorsalis pedis pulses palpated throughout. +5/5 strength noted in UE/LE bilaterally. NEUROLOGIC - Cranial nerves II through XII grossly intact. Sensory intact to light touch throughout. Patient able to perform rapid alternating movements appropriately. Negative Drift. PSYCH - A&O to person, place, and . Pt is very pleasant and interacts well with examiner. Results & Data Results & Data ([facility]) Vital Signs (Past 12 Hours) Vital Signs Temp Pulse Resp BP Pulse Ox 03/17/21 09:45 15 146/74 H 92 03/17/21 09:30 12 164/80 H 92 03/17/21 09:15 11 L 153/64 H 95 03/17/21 09:00 71 11 L 154/71 H 97 03/17/21 08:00 69 16 146/61 H 96 03/17/21 07:00 66 15 153/79 H 92 03/17/21 05:20 64 13 96 03/17/21 05:15 65 14 163/80 H 96 03/17/21 05:10 64 11 L 97 03/17/21 05:01 71 20 163/59 H 96 03/17/21 05:00 64 11 L 97 03/17/21 04:50 63 13 96 03/17/21 04:45 66 14 165/75 H 96 03/17/21 04:40 70 15 97 03/17/21 04:30 63 12 173/79 H 97 03/17/21 04:20 65 13 97 03/17/21 04:15 75 27 H 155/80 H 96 03/17/21 04:10 62 19 89 L 03/17/21 04:00 62 11 L 89 L 03/17/21 03:50 63 22 91 03/17/21 03:45 63 16 172/105 H 93 03/17/21 03:42 36.5 C 03/17/21 03:40 66 14 91 03/17/21 03:30 72 17 03/17/21 03:20 61 15 03/17/21 03:15 64 16 177/73 H 03/17/21 03:10 72 20 03/17/21 03:00 65 15 160/78 H 91 03/17/21 02:50 69 13 92 03/17/21 02:46 77 15 153/70 H 91 03/17/21 02:40 74 14 94 03/17/21 02:35 70 13 131/68 94 03/17/21 02:30 76 27 H 93 03/17/21 02:20 72 18 92 03/17/21 02:10 69 11 L 94 03/17/21 02:01 87 16 113/70 93 03/17/21 02:00 67 15 92 03/17/21 01:50 68 13 91 03/17/21 01:40 70 14 90 03/17/21 01:30 72 15 149/69 H 91 03/17/21 01:20 72 12 93 03/17/21 01:15 72 14 147/71 H 92 03/17/21 01:10 70 19 92 03/17/21 01:00 74 16 95 03/17/21 00:50 73 17 94 03/17/21 00:45 75 15 128/66 93 03/17/21 00:40 76 20 97 03/17/21 00:30 75 18 150/65 H 93 03/17/21 00:20 75 17 95 03/17/21 00:10 105 H 15 91 03/17/21 00:00 71 21 147/73 H 94 03/16/21 23:55 37.1 C 03/16/21 23:50 67 18 96 03/16/21 23:48 72 03/16/21 23:45 71 18 141/90 H 95 03/16/21 23:40 70 15 94 03/16/21 23:35 70 24 159/71 H 96 03/16/21 23:20 71 21 94 03/16/21 23:15 70 15 132/66 95 03/16/21 23:10 74 18 92 03/16/21 23:00 93 H 30 H 132/83 97 03/16/21 22:50 75 17 94 03/16/21 22:45 72 24 149/73 H 94 03/16/21 22:40 71 19 92 03/16/21 22:30 74 13 138/78 94 03/16/21 22:20 72 15 95 Coding Level of Care Code 99669 Subseq Hosp Care Lvl 2 Diagnoses Admitted to intensive care unit Z78.9 SAH (subarachnoid hemorrhage) I60.9 Hypertensive emergency without congestive heart failure I16.1 Numbness of right hand R20.0 Garbled speech R47.89
[2021-03-17] MEDS: SODIUM CHLORIDE 0.9% 1000ML 1,000 ML IV SCH (13:26)
[2021-03-17] MEDS: OLANZAPINE 2.5 MG TAB PO SCH (20:03)
[2021-03-17] MEDS ORDERED: VALSARTAN 80 MG TAB PO SCH (21:00)
--- NOTE | 2021-03-17 22:46 | Hospitalist Progress Note ---
Date of Service March 17, 2021 Assessment & Plan (1) Acute spontaneous subarachnoid intracranial hemorrhage: Plan: On admission Left frontal SAH - initial dx 03/09/21. Transferred to neuro ICU at [facility] that evening, hospitalized at [facility] from 03/10 to 03/12. no surgical intervention needed. Returns today with right hand numbness, numbness of tongue, slurred speech overnight last pm, diplopia earlier today, and marked elevation in BP. All neuro symptoms resolved during my assessment except for the tongue numbness. CT head today shows mild increase in size of the SAH in comparison to 03/09/21 CT head done at [facility]. However, [facility] neurology reports that the SAH on today's CT is the same as the most recent CT head done in [place]. Transfer to [facility] was declined / not recommended by neurology at [facility]. Dr Ben Zelaya - ER attending - discussed Ms Aguilar's care with [facility] Neurology. The recurrent symptoms are concerning for ongoing vasospasm/ischemia to the left frontal region. Cannot exclude a small stroke in that region (unable to obtain MRI brain due to pacemaker status). On 03/16 Patient no longer having slurred speech, continues to have right hand numbness/ Plan is to remain in ICU. recheck CT head today to assess for worsening hemorrhage. appreciate input from Neuro. D/W critical care team. On 03/17 Will transfer out of the ICU. repeat head CT head is stable. awaiting input from PT/OT WILL MONITOR OVERNIGHT. (2) Numbness of right hand: Plan: see above (3) Hypertensive emergency without congestive heart failure: Plan: In light of ongoing/recurrent neurological symptoms and SAH - start nicardipine drip with SBP goal of 140 this evening. Hold her ARB. Admit to ICU for nicardipine titration. (4) Memory loss: Plan: Suspect she has vascular dementia in light of numerous brain insults as noted in the HPI. (5) Depression with anxiety: Plan: Cont effexor, buspar, clonazepam prn, zyprexa. (6) Epilepsy: Plan: Follows with Dr Watson, [facility] Neurology. Cont keppra 500mg BID. [facility] neurology recommended ongoing use of such. (7) History of sick sinus syndrome: Plan: pacemaker in place (8) GERD (gastroesophageal reflux disease): Plan: PPI (9) Hypertension: Plan: see #3 above (10) Hypothyroidism, unspecified: Plan: TSH minimally elevated in 01/2021. Recommend repeat as outpatient. Cont synthroid. (11) DVT prophylaxis: Plan: SCDs chemical means contraindicated Admission and Anticipated Discharge Date Admission Date: March 15, 2021 Subjective Patient reports no longer having numbness in her tongue. She continues to have numbness in her right arm. Review of Systems Review of Systems: All systems reviewed & are unremarkable except as noted in HPI & below Physical Exam Physical Exam: gen - NAD, mildly confused eyes - PERRL; I do not appreciate any strabismus/palsy; EOMI HENT - MMM, no lesions neck - no JVD heart - RRR, s1 s2, no murmur lungs - CTA b/l abd - soft NT ND BS+ ext - no edema, pulses 2+ b/l skin - no rash neuro - no facial droop; CN 3-12 intact; strength handgrip 5/5 b/l; strength 5/5 x 4 extremities; sensation intact light touch b/l upper & lower extremities; no ataxia finger/nose/finger maneuver; gait not tested psych - awake, alert, oriented to person/place; not oriented to time lymph - no cervical lymphadenopathy Results & Data Results & Data ([facility]) Vital Signs (Past 12 Hours) Vital Signs Temp Pulse Pulse Resp BP BP Pulse Ox 03/17/21 20:00 36.7 C 80 17 156/68 H 96 03/17/21 17:24 36.5 C 03/17/21 15:14 79 03/17/21 12:15 71 13 154/79 H 94 03/17/21 12:00 74 18 128/72 93 03/17/21 11:00 74 18 146/79 H 92 PG Care Time/CCT Total # of Minutes Spent Total Time Spent with Patient: Total time spent is greater than 50% in coordination of care (as documented) at patient's floor/unit and/or counseling patient: Coding Level of Care Code 81412 Subseq Hosp Care Lvl 2 Diagnoses Acute spontaneous subarachnoid intracranial hemorrhage I60.9 Numbness of right hand R20.0 Hypertensive emergency without congestive heart failure I16.1 Memory loss R41.3 Depression with anxiety F41.8 Epilepsy G40.909 History of sick sinus syndrome Z86.79 GERD (gastroesophageal reflux disease) K21.9 Hypertension I10 Hypertension type: essential hypertension Hypothyroidism, unspecified E03.9 DVT prophylaxis Z29.9 Time Spent (min) 25 (1) Hypertension Hypertension type: essential hypertension Qualified Code(s): I10 - Essential (primary) hypertension
[2021-03-18] MEDS: LEVOTHYROXINE SODIUM 100 MCG TABLET PO SCH (05:57)
[2021-03-18 06:35] LABS: Basophils # (auto) 0.03 K/uL (0-0.2); Basophils % (auto) 0.4 %; Eosinophils # (auto) 0.43 K/uL (0-0.5); Eosinophils % (auto) 5.6 %; Hemoglobin 13.9 g/dL (12.0-16.0); Immature Granulocytes # (auto) 0.02 K/uL (0.00-0.02); Immature Granulocytes % (auto) 0.3 %; Lymphocytes # (auto) 1.87 K/uL (1.2-3.4); Lymphocytes % (auto) 24.3 %; Mean Corpuscular Hemoglobin 31.8 pg (25-34); Mean Corpuscular Hgb Conc 33.9 g/dL (32-36); Mean Corpuscular Volume 93.8 fL (80-100); Mean Platelet Volume 9.1 fL (7.4-10.4); Monocytes # (auto) 0.54 K/uL (0.11-0.59); Neutrophils % (auto) 62.4 %; Platelet Count 207 K/uL (130-400); RDW Coefficient of Variation 12.5 % (11.5-14.5); RDW Standard Deviation 42.9 fL (36.4-46.3); Red Blood Count 4.37 M/uL (4.2-5.4); White Blood Count 7.69 K/uL (4.8-10.8)
[2021-03-18 06:45] LABS: BUN Creatinine Ratio 18.9 (10-20); Calcium 9.1 mg/dl (8.5-10.1); Creatinine Clr Calc Pharmacy 37.1 ml/min; Est GFR (African American) 63.3 ml/min; Est GFR (Non-African American) 54.6 ml/min
[2021-03-18] MEDS: POLYETHYLENE (MIRALAX) 17 GM PACK PO SCH ×2 (08:36→08:43)
[2021-03-18] MEDS: PANTOprazole 40 MG TAB PO SCH (08:36)
[2021-03-18] MEDS: busPIRone 15 MG TAB PO SCH ×2 (08:36→21:41)
[2021-03-18] MEDS: levETIRAcetam 500 MG TAB PO SCH ×2 (08:36→21:41)
[2021-03-18] MEDS: VENLAFAXINE HCL XR 150 MG CAPXR PO SCH (08:37)
[2021-03-18] MEDS: ATORVASTATIN 40 MG TAB PO SCH (08:37)
[2021-03-18] MEDS: VENLAFAXINE HCL XR 75 MG CAPXR PO SCH (08:37)
--- NOTE | 2021-03-18 10:35 | Neurology Progress Note ---
Date of Service March 18, 2021 Assessment & Plan (1) SAH (subarachnoid hemorrhage): (2) Acute CVA (cerebrovascular accident): (3) Cerebral amyloid angiopathy: Plan: Stable subacute left frontoparietal subarachnoid hemorrhage. Suspected underlying cerebral amyloid angiopathy. Patient's right sided motor and sensory symptoms have resolved. She does exhibit mild residual slowing of speech and speech disfluency which I suspect is related to the left frontoparietal subarachnoid hemorrhage, there is some associated sulcal effacement. No clinical signs or symptoms suggestive of seizure activity. She continues with a prophylactic dose of levetiracetam and should continue with this medication. There is some risk for vasospasm associated with subarachnoid hemorrhage. This risk has been better characterized in cerebral aneurysmal rupture, however. Greatest risk for vasospasm is felt to be greatest for the first 7 to 10 days. We are unable to perform TCD's in our institution to potentially evaluate for cerebral vasospasm. Nimodipine and nicardipine have been used prophylactically in this context although the benefit as far as reducing vasospasm induced stroke is not entirely clear and studies suggest may not be statistically significant. Nonetheless, oral Nimotop 60 mg every 4 hours for 21 days could be utilized. However, this patient did not tolerate intravenous nicardipine due to symptomatic hypotension. Therefore, as she has been clinically stable recently, with subtle speech disfluency that I suspect is due to the identified left frontoparietal subarachnoid hemorrhage with associated sulcal effacement, rather than new ischemic stroke due to vasospasm, I would hold off on a trial of Nimotop at this point in time. Her valsartan has been restarted which I think is appropriate. If she were to experience a significant symptomatic recurrence of focal neurological symptoms potentially worrisome for vasospasm, would consider starting Nimotop as above, in that context. Would also recommend a follow-up CT of the head in the event of significant neurologic change as well. Admission and Anticipated Discharge Date Admission Date: March 15, 2021 Subjective Follow-up for subarachnoid hemorrhage The patient reports resolution of her right-sided weakness and sensory disturbance. She has exhibited some mild difficulty with speech disfluency at times and does have some speech hesitancy this morning. She otherwise appears to be neurologically intact. She denies headache. She does complain of occas ional horizontal diplopia which has been an intermittent problem. No nausea or vomiting. She did have a follow-up CT of the head completed yesterday which revealed stability of her subarachnoid hemorrhage overlying the left frontal lobe, slightly decreased in size. I did review the images as well as the radiologist interpretation of this test. There is mild sulcal effacement, no shift, no hydrocephalus. Patient continues with Keppra 500 mg twice daily for seizure prophylaxis although has not exhibited any clinically evident seizures. Patient's valsartan has been restarted. She had been on a nicardipine drip although did not tolerate this medication due to an episode of symptomatic hypotension. Review of Systems Neurologic: no localized weakness, no loss of sensation and no headache(s) Results & Data ([facility]) Vital Signs (Past 12 Hours) Vital Signs Temp Pulse Pulse Resp BP Pulse Ox 03/18/21 04:00 36.7 C 72 10 L 128/63 97 03/18/21 00:00 73 03/17/21 23:19 36.7 C 75 18 145/87 H 96 Laboratory Results WBC 7.69, hemoglobin 13.9, hematocrit 41.0, platelet count 207, sodium 141, potassium 4.0, BUN 18, creatinine 0.95, glucose 104, calcium 9.[address] of the head is as described above. Electrocardiogram completed on March 16 revealed a sinus rhythm with first- degree AV block. Exam (Neuro) Neurologic: Oriented to:: Person, Place and Time Attention: Span Intact and Concentration Intact Speech Fluency: Dysfluency (slight) Fund of Knowledge: Current Events, Past History and Vocabulary Cranial Nerves: Normal II, III, IV, , V, VII, VIII, IX, X, XI and XII Motor Strength: Normal Lower Extremities and Normal Upper Extremities Coordination: negative Finger-Nose Abnormal Coding Level of Care Code 08614 Subseq Hosp Care Lvl 2 Diagnoses SAH (subarachnoid hemorrhage) I60.9 Acute CVA (cerebrovascular accident) I63.9 Cerebral amyloid angiopathy E85.4; I68.0
--- NOTE | 2021-03-18 15:50 | CT Scan Report ---
CT head/brain wo con CLINICAL HISTORY: slurring speech . Follow-up subarachnoid hemorrhage COMPARISON STUDY: 03/16/2021 CT DOSE: 537.48 mGy.cm TECHNIQUE: Standard CT of the Brain was performed without IV contrast. A dose lowering technique was utilized adhering to the principles of ALARA. FINDINGS: Compared to the previous examination, there has been continued interval decrease in subarachnoid hemo rrhage within the left frontal parietal lobe. No increased hemorrhage is identified. No new hemorrhag es are identified. There is no evidence for increased cerebral edema. Extraaxial space: There is no evidence for subdural hematoma. There are no extra-axial fluid collecti ons. Ventricles and cisterns: The ventricles are mildly dilated bilaterally. There is no evidence for mid line shift or mass effect. Parenchyma: There is no intraparenchymal hemorrhage. There is no evidence for an acute infarct or ce rebral edema. There is mild cerebral cortical atrophy and decreased attenuation in the periventricula r white matter representing remote small vessel disease. There are no gross mass lesions. Osseous structures: Previous craniotomy defect is again seen on the right. There is no evidence for a n acute fracture. The visualized paranasal sinuses are clear. The mastoid air cells are clear bilater ally. Soft tissues: There is no evidence for focal soft tissue swelling. IMPRESSION: 1. Compared to the previous examination, there has been continued interval resolution of previously i dentified left frontal parietal subarachnoid hemorrhage. 2. No new subdural, subarachnoid or intraparenchymal hemorrhage is seen. 3. No acute infarct or cerebral edema. 4. Cerebral cortical atrophy and remote small vessel disease are again seen. 5. There is again evidence for previous craniotomy. ACT 112: Negative or not required by law. Electronically signed by: Justyn Gilliam M.D. 03/18/2021 3:48 PM
[2021-03-18] MEDS: niMODipine 30 MG CAP PO SCH (21:41)
[2021-03-18] MEDS: OLANZAPINE 2.5 MG TAB PO SCH (21:42)
[2021-03-18] MEDS: VALSARTAN 80 MG TAB PO SCH (21:42)
--- NOTE | 2021-03-18 23:26 | Hospitalist Progress Note ---
Date of Service March 18, 2021 Assessment & Plan (1) Acute spontaneous subarachnoid intracranial hemorrhage: Plan: On admission Left frontal SAH - initial dx 03/09/21. Transferred to neuro ICU at [facility] that evening, hospitalized at [facility] from 03/10 to 03/12. no surgical intervention needed. Returns today with right hand numbness, numbness of tongue, slurred speech overnight last pm, diplopia earlier today, and marked elevation in BP. All neuro symptoms resolved during my assessment except for the tongue numbness. CT head today shows mild increase in size of the SAH in comparison to 03/09/21 CT head done at [facility]. However, [facility] neurology reports that the SAH on today's CT is the same as the most recent CT head done in [place]. Transfer to [facility] was declined / not recommended by neurology at [facility]. Dr Ben Zelaya - ER attending - discussed Ms Aguilar's care with [facility] Neurology. The recurrent symptoms are concerning for ongoing vasospasm/ischemia to the left frontal region. Cannot exclude a small stroke in that region (unable to obtain MRI brain due to pacemaker status). On 03/16 Patient no longer having slurred speech, continues to have right hand numbness/ Plan is to remain in ICU. recheck CT head today to assess for worsening hemorrhage. appreciate input from Neuro. D/W critical care team. On 03/17 Will transfer out of the ICU. repeat head CT head is stable. awaiting input from PT/OT WILL MONITOR OVERNIGHT. On 03/18 Patient is now having broken speech. Repeat CT scan: shows no new stroke. B/P was slightly on the low end. Tis may be exacerbating her stroke symptoms. will cut back on her ARB to 160 mg HS, and will add nimodipine to help with blood perfusion to the injured brain will repeat CT scan of brain on Sunday. (unable to obtain MRI brain due to pacemaker status). (2) Numbness of right hand: Plan: see above (3) Hypertensive emergency without congestive heart failure: Plan: In light of ongoing/recurrent neurological symptoms and SAH - start nicardipine drip with SBP goal of 140 this evening. Hold her ARB. Admit to ICU for nicardipine titration. (4) Memory loss: Plan: Suspect she has vascular dementia in light of numerous brain insults as noted in the HPI. (5) Depression with anxiety: Plan: Cont effexor, buspar, clonazepam prn, zyprexa. (6) Epilepsy: Plan: Follows with Dr Watson, [facility] Neurology. Cont keppra 500mg BID. [facility] neurology recommended ongoing use of such. (7) History of sick sinus syndrome: Plan: pacemaker in place (8) GERD (gastroesophageal reflux disease): Plan: PPI (9) Hypertension: Plan: see #3 above (10) Hypothyroidism, unspecified: Plan: TSH minimally elevated in 01/2021. Recommend repeat as outpatient. Cont synthroid. (11) DVT prophylaxis: Plan: SCDs chemical means contraindicated Admission and Anticipated Discharge Date Admission Date: March 15, 2021 Subjective 86 YO FEMALE reports no new symptoms in the AM. However, in the afternoon, patient began to have a broken speech. During her conversation, she would be word searching trying to complete simple sentences. Review of Systems Review of Systems: All systems reviewed & are unremarkable except as noted in HPI & below Physical Exam Physical Exam: gen - NAD, mildly confused eyes - PERRL; I do not appreciate any strabismus/palsy; EOMI HENT - MMM, no lesions neck - no JVD heart - RRR, s1 s2, no murmur lungs - CTA b/l abd - soft NT ND BS+ ext - no edema, pulses 2+ b/l skin - no rash neuro - no facial droop; CN 3-12 intact; strength handgrip 5/5 b/l; strength 5/5 x 4 extremities; sensation intact light touch b/l upper & lower extremities; no ataxia finger/nose/finger maneuver; gait not tested psych - awake, alert, oriented to person/place; not oriented to time lymph - no cervical lymphadenopathy Results & Data Results & Data ([facility]) Vital Signs (Past 12 Hours) Vital Signs Temp Pulse Pulse Resp BP BP Pulse Ox 03/18/21 22:01 92 H 17 143/80 H 95 03/18/21 21:00 80 17 149/70 H 91 03/18/21 20:01 36.7 C 82 13 113/69 94 03/18/21 16:00 92 H 84 14 149/84 H 92 03/18/21 12:00 36.4 C L 86 81 17 143/78 H 109/78 95 03/18/21 11:38 86 22 109/78 96 PG Care Time/CCT Total # of Minutes Spent Total Time Spent with Patient: Total time spent is greater than 50% in coordination of care (as documented) at patient's floor/unit and/or counseling patient: Coding Level of Care Code 49173 Subseq Hosp Care Lvl 3 Diagnoses Acute spontaneous subarachnoid intracranial hemorrhage I60.9 Numbness of right hand R20.0 Hypertensive emergency without congestive heart failure I16.1 Memory loss R41.3 Depression with anxiety F41.8 Epilepsy G40.909 History of sick sinus syndrome Z86.79 GERD (gastroesophageal reflux disease) K21.9 Hypertension I10 Hypertension type: essential hypertension Hypothyroidism, unspecified E03.9 DVT prophylaxis Z29.9 Time Spent (min) 35 (1) Hypertension Hypertension type: essential hypertension Qualified Code(s): I10 - Essential (primary) hypertension
[2021-03-19] MEDS: niMODipine 30 MG CAP PO SCH ×3 (00:01→08:08)
[2021-03-19] MEDS: LEVOTHYROXINE SODIUM 100 MCG TABLET PO SCH (04:16)
[2021-03-19] MEDS: VENLAFAXINE HCL XR 75 MG CAPXR PO SCH (08:08)
[2021-03-19] MEDS: POLYETHYLENE (MIRALAX) 17 GM PACK PO SCH (08:08)
[2021-03-19] MEDS: busPIRone 15 MG TAB PO SCH ×2 (08:08→19:43)
[2021-03-19] MEDS: VENLAFAXINE HCL XR 150 MG CAPXR PO SCH (08:08)
[2021-03-19] MEDS: levETIRAcetam 500 MG TAB PO SCH (08:08)
[2021-03-19] MEDS: PANTOprazole 40 MG TAB PO SCH (08:09)
[2021-03-19] MEDS: ATORVASTATIN 40 MG TAB PO SCH (08:09)
--- NOTE | 2021-03-19 08:40 | Neurology Progress Note ---
Date of Service March 19, 2021 Assessment & Plan (1) SAH (subarachnoid hemorrhage): (2) Acute CVA (cerebrovascular accident): (3) Cerebral amyloid angiopathy: Plan: Recurrence of speech disfluency and mild clumsiness/weakness of the right hand with associated flattening of the right nasolabial fold this morning, occurring in the context of relative hypotension and recent initiation of Nimotop for prophylaxis of subarachnoid hemorrhage induced vasospasm. Given patient's clinical worsening this morning, I have discontinued the Nimotop. Her dosage of Diovan was reduced yesterday. She is unable to have a brain MRI as her pacer is not MRI compatible. I will order a repeat CT of the head today. Admission and Anticipated Discharge Date Admission Date: March 15, 2021 Subjective Follow-up for subarachnoid hemorrhage Discussed case with Dr. Neri last night. Patient has been experiencing a recurrence of word finding difficulty, right-sided motor or sensory symptoms. Given concern for vasospasm a trial of low-dose nimodipine p.o. every 4 hours was initiated. Her Diovan dosage was reduced. Patient's blood pressure was notably reduced overnight and remained so this morning. The patient is symptomatic this morning with speech disfluency, mild word finding difficulty, and mild clumsiness/weakness of the right hand that is more prominent than yesterday morning. She denies headache. Review of Systems Eyes: no blind spots Neurologic: as per Subjective / HPI and + localized weakness; no headache(s) Results & Data ([facility]) Vital Signs (Past 12 Hours) Vital Signs Temp Pulse Pulse Pulse Resp BP BP 03/19/21 04:00 36.8 C 72 92 H 19 104/48 L 03/19/21 00:00 36.7 C 92 H 71 12 101/59 L 03/18/21 22:01 92 H 17 143/80 H 03/18/21 21:00 80 17 149/70 H Pulse Ox 03/19/21 04:00 93 03/19/21 00:00 95 03/18/21 22:01 95 03/18/21 21:00 91 Laboratory Results Labs from yesterday reviewed. WBC 7.69, hemoglobin 13.9, hematocrit 41.0, platelet count 207, sodium 141, potassium 4.0, BUN 18, creatinine 0.95, glucose 104. Diagnostic Findings Yesterday's CT of the head reviewed. Continued interval decrease in subarachnoid hemorrhage within the left frontoparietal lobe noted. Exam (Neuro) Neurologic: Oriented to:: Person and Place Attention: Span Intact and Concentration Intact Speech Fluency: Dysfluency and Other (Speech is somewhat hesitant, subtle difficulty with word finding with casual conversation. Able to name objects. Able to repeat phrases.) Fund of Knowledge: Vocabulary Cranial Nerves: Normal II and III, IV, ; Abnorm VII (There is mild flattening of the right nasolabial fold.) Motor Strength: Normal Lower Extremities; negative Normal Upper Extremities (There is mild distal weakness for the right upper extremity with reduced facility of fine finger movements.) Coding Level of Care Code 64369 Subseq Hosp Care Lvl 2 Diagnoses SAH (subarachnoid hemorrhage) I60.9 Acute CVA (cerebrovascular accident) I63.9 Cerebral amyloid angiopathy E85.4; I68.0
--- NOTE | 2021-03-19 09:38 | CT Scan Report ---
HEAD CT NONCONTRAST CT DOSE: 537.48 mGy.cm HISTORY: aphasia, right upper extremity weakness, recurrence TECHNIQUE: Multiaxial CT images of the head were performed without the use of intravenous contrast. A utomated exposure control was utilized for this study. A dose lowering technique was utilized adheri ng to the principles of ALARA. Comparison: Head CT 03/18/2021. Findings: The paranasal sinuses and mastoid air cells are clear. Postoperative changes consistent wit h a prior right-sided craniotomy. Stable underlying encephalomalacia within the right temporal region . Slight improvement in the small amount of left high convexity frontoparietal subarachnoid hemorrhag e. No additional areas of intracranial hemorrhage identified. Atrophy and microvascular ischemic galvin ges are again noted. There is no mass, midline shift, or acute infarct. Impression: 1. Slight improvement in the small amount of left high convexity frontoparietal subarachnoid hemorrha ge. 2. No new areas of intracranial hemorrhage identified. 3. No acute infarct. ACT 112: Negative or not required by law. Electronically signed by: Boaz Meredith M.D. 03/19/2021 9:37 AM
--- NOTE | 2021-03-19 10:33 | Hospitalist Progress Note ---
Date of Service March 19, 2021 Assessment & Plan (1) Acute spontaneous subarachnoid intracranial hemorrhage: Plan: Left frontal SAH - initial dx 03/09/21. Transferred to neuro ICU at [facility] that evening, hospitalized at [facility] from 03/10 to 03/12. no surgical intervention needed. Returns to ER with right hand numbness, numbness of tongue, slurred speech overnight last pm, diplopia earlier today, and marked elevation in BP. All neuro symptoms resolved during my assessment except for the tongue numbness. CT head today shows mild increase in size of the SAH in comparison to 03/09/21 CT head done at [facility]. However, [facility] neurology reported that the SAH on admission CT is the same as the most recent CT head done in [place]. Transfer to [facility] was declined / not recommended on admission by neurology at [facility]. The recurrent symptoms are concerning for ongoing vasospasm/ischemia to the left frontal region. Cannot exclude a small stroke in that region (unable to obtain MRI brain due to pacemaker status). 03/16 Patient no longer having slurred speech, continues to have right hand numbness/ Plan is to remain in ICU. CT head multiple unchanged D/W critical care team. 03/17 Transferred out of the ICU. repeat head CT head is stable. awaiting input from PT/OT WILL MONITOR OVERNIGHT. 03/18 Patient is now having broken speech. Repeat CT scan: shows no new stroke. B/P was slightly on the low end. This may be exacerbating her stroke symptoms. ARB reduced to 160 mg HS, add nimodipine to help with blood perfusion to the injured brain will repeat CT scan of brain on Sunday. (unable to obtain MRI brain due to pacemaker status). 03/[address] Watson - nimodipine discontinued due to relative hypotension Continue reduced dose of ARB as above Repeat CT head continues to improve (2) Numbness of right hand: Plan: see above (3) Hypertensive emergency without congestive heart failure: Plan: Resolved Continue on reduced dose valsartan 160mg PO daily (4) Memory loss: Plan: Suspect she has vascular dementia in light of numerous brain insults as noted in the HPI. (5) Depression with anxiety: Plan: Cont effexor, buspar, zyprexa. Hold clonazepam to reduce worsening stroke like symptoms (6) Epilepsy: Plan: Follows with Dr Watson, [facility]. Cont keppra 500mg BID. [facility] neurology recommended ongoing use of such. (7) History of sick sinus syndrome: Plan: pacemaker in place (8) GERD (gastroesophageal reflux disease): Plan: PPI (9) Hypertension: Plan: see #3 above (10) Hypothyroidism, unspecified: Plan: TSH minimally elevated in 01/2021. Recommend repeat as outpatient. Cont synthroid. (11) DVT prophylaxis: Plan: SCDs chemical means contraindicated Admission and Anticipated Discharge Date Admission Date: March 15, 2021 Subjective Still having some mild dysarthria but very pronounced right upper extremity weakness. She reports this may have slightly improved since yesterday. No lower extremity weakness or change in vision or hearing. Discussed with her over the phone and explained hemorrhage appears to be improving therefore no need to transfer at this time. Likely fluctuating symptoms as a results of her fluctuating blood pressure. Review of Systems Review of Systems: All systems reviewed & are unremarkable except as noted in Subjective Physical Exam Constitutional: WD/WN, vitals as above Eyes: PERRL, conjunctivae normal, anicteric sclerae ENMT: external ear and nose normal, oropharynx normal Neck: trachea midline, no thyromegaly Respiratory: normal respiratory effort, lungs clear to auscultation Cardiovascular: RRR, no murmur, no edema Gastrointestinal (Abdomen): normal bowel sounds, soft, nontender, no he patosplenomegaly Skin: no rashes, warm and dry Neurologic: + focal motor deficit (see below) and awake; not confused Speech / Cognition: + abnormal speech (mild dysarthria) Motor/Sensory: + pronator drift (right) Cranial Nerves: PERRL, EOM intact bilaterally, normal facial strength, tongue midline, able to rotate head bilaterally, able to elevate shoulders bilaterally, no nystagmus and symmetric palate elevation LUE/LLE/RLE 5/5 throughout Right wrist extension 3/5, flex 4/5, finger abduction 3/5, elbow ext 4/5, flex 3/5 Psychiatric: A+Ox3, euthymic affect Results & Data Results & Data ([facility]) Vital Signs (Past 12 Hours) Vital Signs Temp Pulse Pulse Pulse Resp BP Pulse Ox 03/19/21 08:00 36.5 C 76 76 20 121/57 L 94 03/19/21 04:00 36.8 C 72 92 H 19 104/48 L 93 03/19/21 00:00 36.7 C 92 H 71 12 101/59 L 95 PG Care Time/CCT Total # of Minutes Spent Total Time Spent with Patient: Total time spent is greater than 50% in coordination of care (as documented) at patient's floor/unit and/or counseling patient: Coding Level of Care Code 50896 Subseq Hosp Care Lvl 2 Diagnoses Acute spontaneous subarachnoid intracranial hemorrhage I60.9 Numbness of right hand R20.0 Hypertensive emergency without congestive heart failure I16.1 Memory loss R41.3 Depression with anxiety F41.8 Epilepsy G40.909 History of sick sinus syndrome Z86.79 GERD (gastroesophageal reflux disease) K21.9 Hypertension I10 Hypertension type: essential hypertension Hypothyroidism, unspecified E03.9 DVT prophylaxis Z29.9 (1) Hypertension Hypertension type: essential hypertension Qualified Code(s): I10 - Essential (primary) hypertension
[2021-03-19] MEDS: OLANZAPINE 2.5 MG TAB PO SCH (19:45)
[2021-03-19] MEDS ORDERED: levETIRAcetam 500 MG in 0.9 % SODIUM CHLORIDE 100 ML IV STA (19:58)
[2021-03-19] MEDS ORDERED: OLANZapine 10 MG/2.1 ML SDV IM STA (21:20)
[2021-03-19] MEDS ORDERED: OLANZapine 10 MG/2.1 ML SDV IM ONE (21:28)
[2021-03-19] MEDS: VALSARTAN 80 MG TAB PO SCH (21:38)
[2021-03-20] MEDS ORDERED: OLANZapine 10 MG/2.1 ML SDV IM STA (03:46)
[2021-03-20] MEDS ORDERED: OLANZapine 10 MG/2.1 ML SDV IM ONE (03:51)
[2021-03-20] MEDS ORDERED: MoRPHine SULFATE 2 MG/ML CARP IV STA (05:24)
[2021-03-20] MEDS: LEVOTHYROXINE SODIUM 100 MCG TABLET PO SCH (06:22)
[2021-03-20] MEDS: POLYETHYLENE (MIRALAX) 17 GM PACK PO SCH (07:50)
[2021-03-20] MEDS: ATORVASTATIN 40 MG TAB PO SCH (07:50)
[2021-03-20] MEDS: busPIRone 15 MG TAB PO SCH ×2 (07:50→19:13)
[2021-03-20] MEDS: PANTOprazole 40 MG TAB PO SCH (07:50)
[2021-03-20] MEDS: VENLAFAXINE HCL XR 150 MG CAPXR PO SCH (07:50)
[2021-03-20] MEDS: VENLAFAXINE HCL XR 75 MG CAPXR PO SCH (07:51)
--- NOTE | 2021-03-20 13:26 | Hospitalist Progress Note ---
Date of Service March 20, 2021 Assessment & Plan (1) Acute spontaneous subarachnoid intracranial hemorrhage: Plan: Left frontal SAH - initial dx 03/09/21. Transferred to neuro ICU at [facility] that evening, hospitalized at [facility] from 03/10 to 03/12. no surgical intervention needed. Returns to ER with right hand numbness, numbness of tongue, slurred speech overnight last pm, diplopia earlier today, and marked elevation in BP. All neuro symptoms resolved during my assessment except for the tongue numbness. CT head today shows mild increase in size of the SAH in comparison to 03/09/21 CT head done at [facility]. However, [facility] neurology reported that the SAH on admission CT is the same as the most recent CT head done in [place]. Transfer to [facility] was declined / not recommended on admission by neurology at [facility]. The recurrent symptoms are concerning for ongoing vasospasm/ischemia to the left frontal region. Cannot exclude a small stroke in that region (unable to obtain MRI brain due to pacemaker status). 03/16 Patient no longer having slurred speech, continues to have right hand numbness/ Plan is to remain in ICU. CT head multiple unchanged D/W critical care team. 03/17 Transferred out of the ICU. repeat head CT head is stable. awaiting input from PT/OT WILL MONITOR OVERNIGHT. 03/18 Patient is now having broken speech. Repeat CT scan: shows no new stroke. B/P was slightly on the low end. This may be exacerbating her stroke symptoms. ARB reduced to 160 mg HS, add nimodipine to help with blood perfusion to the injured brain will repeat CT scan of brain on Sunday. (unable to obtain MRI brain due to pacemaker status). 03/[address] Watson - nimodipine discontinued due to relative hypotension Continue reduced dose of ARB as above Repeat CT head continues to improve 03/20 Delirious overnight, sleeping most of the day due to olanzapine and morphine given BP stable (2) Numbness of right hand: Plan: see above (3) Hypertensive emergency without congestive heart failure: Plan: Resolved Continue on reduced dose valsartan 160mg PO daily (4) Memory loss: Plan: Suspect she has vascular dementia in light of numerous brain insults as noted in the HPI. (5) Depression with anxiety: Plan: Cont effexor, buspar, zyprexa. Hold clonazepam to reduce worsening stroke like symptoms (6) Epilepsy: Plan: Follows with Dr Watson, [facility] Neurology. Cont keppra 500mg BID. [facility] neurology recommended ongoing use of such. (7) History of sick sinus syndrome: Plan: pacemaker in place (8) GERD (gastroesophageal reflux disease): Plan: PPI (9) Hypertension: Plan: see #3 above (10) Hypothyroidism, unspecified: Plan: TSH minimally elevated in 01/2021. Recommend repeat as outpatient. Cont synthroid. (11) DVT prophylaxis: Plan: SCDs chemical means contraindicated Plan: Disposition - planning on rehab placement on discharge, awaiting more stability in symptoms and delirium Admission and Anticipated Discharge Date Admission Date: March 15, 2021 Subjective Very fluctuating symptoms throughout the day. Delirious overnight and given total 10mg IM olanzapine and 1mg IV morphine. Sleeping most of today but did man age to take her pills. Unable to fully examine due to change in mental status due to medications required for delirium overnight. Review of Systems Review of Systems: Unobtainable due to cognitive status Physical Exam Constitutional: WD/WN, vitals as above Respiratory: normal respiratory effort Cardiovascular: RRR, no murmur, no edema Skin: no rashes, warm and dry Neurologic: + focal motor deficit (unable to assess, fluctuating RUE weakness by report) and awake (to voice but falls back to sleep easily); not confused Cranial Nerves: normal facial strength Results & Data Results & Data ([facility]) Vital Signs (Past 12 Hours) Vital Signs Temp Pulse Pulse Resp BP Pulse Ox 03/20/21 11:00 36.3 C L 82 18 139/60 93 03/20/21 08:00 76 03/20/21 07:00 36.7 C 76 20 108/64 98 PG Care Time/CCT Total # of Minutes Spent Total Time Spent with Patient: Total time spent is greater than 50% in coordination of care (as documented) at patient's floor/unit and/or counseling patient: Coding Level of Care Code 76439 Subseq Hosp Care Lvl 1 Diagnoses Acute spontaneous subarachnoid intracranial hemorrhage I60.9 Numbness of right hand R20.0 Hypertensive emergency without congestive heart failure I16.1 Memory loss R41.3 Depression with anxiety F41.8 Epilepsy G40.909 History of sick sinus syndrome Z86.79 GERD (gastroesophageal reflux disease) K21.9 Hypertension I10 Hypertension type: essential hypertension Hypothyroidism, unspecified E03.9 DVT prophylaxis Z29.9 (1) Hypertension Hypertension type: essential hypertension Qualified Code(s): I10 - Essential (primary) hypertension
[2021-03-20] MEDS: OLANZAPINE 2.5 MG TAB PO SCH (19:12)
[2021-03-20] MEDS: VALSARTAN 80 MG TAB PO SCH (19:13)
[2021-03-20] MEDS ORDERED: OLANZapine 5 MG TABLET PO SCH (21:00)
[2021-03-20] MEDS: levETIRAcetam 500 MG TAB PO SCH ×2 (22:36→22:37)
[2021-03-21] MEDS: LEVOTHYROXINE SODIUM 100 MCG TABLET PO SCH (05:15)
[2021-03-21] MEDS: VENLAFAXINE HCL XR 150 MG CAPXR PO SCH (08:28)
[2021-03-21] MEDS: PANTOprazole 40 MG TAB PO SCH (08:28)
[2021-03-21] MEDS: POLYETHYLENE (MIRALAX) 17 GM PACK PO SCH (08:28)
[2021-03-21] MEDS: VENLAFAXINE HCL XR 75 MG CAPXR PO SCH (08:28)
[2021-03-21] MEDS: busPIRone 15 MG TAB PO SCH ×2 (08:29→20:15)
[2021-03-21] MEDS: ATORVASTATIN 40 MG TAB PO SCH (08:29)
--- NOTE | 2021-03-21 11:28 | Neurology Progress Note ---
Date of Service March 21, 2021 Assessment & Plan (1) SAH (subarachnoid hemorrhage): (2) Acute CVA (cerebrovascular accident): (3) Cerebral amyloid angiopathy: Plan: Patient has a history of subarachnoid hemorrhage, originally March 09, 2021. She has had a fluctuating course with some waxing and waning of symptoms. This could be due to vasospasm. I doubt this represents seizure activity and the patient is already "covered" with levetiracetam 500 milligrams twice daily. She has been off Nimotop for 2 days now. Her blood pressure is reasonable but tends to run a little bit on the low side. Today is 133/66. Recommendations: 1. physical, speech, and occupational therapy 2. consider calcium channel keyla and discontinuing valsartan. Cannot exclude vaso spasm as a cause of some of the symptoms fluctuations or calcium channel keyla would be indicated. 3. Will follow. Overall, I spent a total of 35 minutes with this case including review of records, review of CT films, direct evaluation patient bedside, and discussion of the case with the patient an RN at bedside, and Dr. Roque including differential diagnosis and treatment options. Admission and Anticipated Discharge Date Admission Date: March 15, 2021 Subjective patient has no complaint of pain or headache. she notes that her right upper extremity is clumsy and her speech is affected Most recent CT scan of the head showed subarachnoid hemorrhage similar to previous. Patient is not having overt seizures but she is having fluctuation of the use of the right upper extremity. She is on levetiracetam 500 milligrams twice a day. Patient has a history of mood disorder and is on multiple mood medications including buspirone, venlafaxine, and olanzapine. Results & Data ([facility]) Vital Signs (Past 12 Hours) Vital Signs Temp Pulse Pulse Resp BP Pulse Ox 03/21/21 11:24 36.3 C L 79 20 133/66 92 03/21/21 08:00 77 03/21/21 07:03 36.3 C L 78 18 131/74 91 03/21/21 05:22 36.7 C 72 14 125/76 92 03/20/21 23:57 76 Exam (Neuro) Physical Exam: She is awake and alert. Speech is dysarthric and she has some trouble naming /word-finding but otherwise is pleasant and cooperative and follows commands very well. Mood is normal and affect is appropriate. Extraocular eye muscles are intact without nystagmus. There is slight facial droop /asymmetry the corner of the mouth on the right compared to the left which is normal. Tongue is midline. She has clumsiness and weakness of the right hand compared to the left. Both legs in the left upper extremity are 5/5 diffusely. Proximally in the right upper extremity she is close to 5/5. PG Care Time/CCT Total # of Minutes Spent Total Time Spent with Patient: Total time spent is greater than 50% in coordination of care (as documented) at patient's floor/unit and/or counseling patient: Coding Level of Care Code 75762 Subseq Hosp Care Lvl 3 Diagnoses SAH (subarachnoid hemorrhage) I60.9 Acute CVA (cerebrovascular accident) I63.9 Cerebral amyloid angiopathy E85.4; I68.0 Time Spent (min) 35
--- NOTE | 2021-03-21 12:49 | Hospitalist Progress Note ---
Date of Service March 21, 2021 Assessment & Plan (1) Acute spontaneous subarachnoid intracranial hemorrhage: Plan: Left frontal SAH - initial dx 03/09/21. Transferred to neuro ICU at [facility] that evening, hospitalized at [facility] from 03/10 to 03/12. no surgical intervention needed. Returns to ER with right hand numbness, numbness of tongue, slurred speech overnight last pm, diplopia earlier today, and marked elevation in BP. All neuro symptoms resolved during my assessment except for the tongue numbness. CT head today shows mild increase in size of the SAH in comparison to 03/09/21 CT head done at [facility]. However, [facility] neurology reported that the SAH on admission CT is the same as the most recent CT head done in [place]. Transfer to [facility] was declined / not recommended on admission by neurology at [facility]. The recurrent symptoms are concerning for ongoing vasospasm/ischemia to the left frontal region. Cannot exclude a small stroke in that region (unable to obtain MRI brain due to pacemaker status). 03/16 Patient no longer having slurred speech, continues to have right hand numbness/ Plan is to remain in ICU. CT head multiple unchanged D/W critical care team. 03/17 Transferred out of the ICU. repeat head CT head is stable. awaiting input from PT/OT WILL MONITOR OVERNIGHT. 03/18 Patient is now having broken speech. Repeat CT scan: shows no new stroke. B/P was slightly on the low end. This may be exacerbating her stroke symptoms. ARB reduced to 160 mg HS, add nimodipine to help with blood perfusion to the injured brain will repeat CT scan of brain on Sunday. (unable to obtain MRI brain due to pacemaker status). 03/[address] Watson - nimodipine discontinued due to relative hypotension Continue reduced dose of ARB as above Repeat CT head continues to improve 03/20 Delirious overnight, sleeping most of the day due to olanzapine and morphine given BP stable 03/[address] Brenner, discontinue valsartan and start nimodipine (will reduce to QID to avoid hypotension and worsening delirium at night, hold if sBP < 120) (2) Numbness of right hand: Plan: see above (3) Hypertensive emergency without congestive heart failure: Plan: Resolved Continue on reduced dose valsartan 160mg PO daily (4) Memory loss: Plan: Suspect she has vascular dementia in light of numerous brain insults as noted in the HPI. (5) Depression with anxiety: Plan: Cont effexor, buspar, zyprexa. Hold clonazepam to reduce worsening stroke like symptoms (6) Epilepsy: Plan: Follows with Dr Watson, [facility] Neurology. Cont keppra 500mg BID. [facility] neurology recommended ongoing use of such. (7) History of sick sinus syndrome: Plan: pacemaker in place (8) GERD (gastroesophageal reflux disease): Plan: PPI (9) Hypertension: Plan: see #3 above (10) Hypothyroidism, unspecified: Plan: TSH minimally elevated in 01/2021. Recommend repeat as outpatient. Cont synthroid. (11) DVT prophylaxis: Plan: SCDs chemical means contraindicated Plan: Disposition - planning on rehab placement on discharge, awaiting more stability in symptoms and delirium - suspect tomorrow will be medically stable if tolerating nimodipine. Admission and Anticipated Discharge Date Admission Date: March 15, 2021 Subjective Patient awake and alert today. No much recollection of yesterday and she was sleeping most of the day due to olanzapine and morphine given overnight. She reportedly had a much better night last night and required no extra antipsychotics however olanzapine was increased to 5 mg due to delirium the previous night. She reports feeling rested. Ongoing slurred speech which appears worse than on Sunday. Ongoing clumsiness of her right hand although he reports that he was using this hand to take her pills and drink this morning. Symptoms appear to fluctuate throughout the day. Discussed care with Dr. Brenner and will switch her valsartan to a calcium channel keyla with the aid of helping any potential vasospasms. Review of Systems Review of Systems: All systems reviewed & are unremarkable except as noted in Subjective Physical Exam Constitutional: WD/WN, vitals as above Respiratory: normal respiratory effort, lungs clear to auscultation Cardiovascular: RRR, no murmur, no edema Gastrointestinal (Abdomen): normal bowel sounds, soft, nontender, no hepatosplenomegaly Skin: no rashes, warm and dry Neurologic: + focal motor deficit (wrist extension 2/5, flexion 3/5, ) and awake; not confused Speech / Cognition: + abnormal speech (moderate dysarthria) Motor/Sensory: + pronator drift (right) Cranial Nerves: normal facial strength Psychiatric: A+Ox3, euthymic affect Results & Data Results & Data ([facility]) Vital Signs (Past 12 Hours) Vital Signs Temp Pulse Pulse Resp BP Pulse Ox 03/21/21 11:24 36.3 C L 79 20 133/66 92 03/21/21 08:00 77 03/21/21 07:03 36.3 C L 78 18 131/74 91 03/21/21 05:22 36.7 C 72 14 125/76 92 PG Care Time/CCT Total # of Minutes Spent Total Time Spent with Patient: Total time spent is greater than 50% in coordination of care (as documented) at patient's floor/unit and/or counseling patient: Coding Level of Care Code 91545 Subseq Hosp Care Lvl 2 Diagnoses Acute spontaneous subarachnoid intracranial hemorrhage I60.9 Numbness of right hand R20.0 Hypertensive emergency without congestive heart failure I16.1 Memory loss R41.3 Depression with anxiety F41.8 Epilepsy G40.909 History of sick sinus syndrome Z86.79 GERD (gastroesophageal reflux disease) K21.9 Hypertension I10 Hypertension type: essential hypertension Hypothyroidism, unspecified E03.9 DVT prophylaxis Z29.9 (1) Hypertension Hypertension type: essential hypertension Qualified Code(s): I10 - Essential (primary) hypertension
[2021-03-21] MEDS ORDERED: OLANZAPINE 2.5 MG TAB PO PRN (14:38)
[2021-03-21] MEDS: levETIRAcetam 500 MG TAB PO SCH (20:15)
[2021-03-21] MEDS: niMODipine 30 MG CAP PO SCH (20:15)
[2021-03-21] MEDS: OLANZAPINE 2.5 MG TAB PO SCH (20:17)
[2021-03-22] MEDS: LEVOTHYROXINE SODIUM 100 MCG TABLET PO SCH (05:39)
[2021-03-22] MEDS: ATORVASTATIN 40 MG TAB PO SCH (08:13)
[2021-03-22] MEDS: PANTOprazole 40 MG TAB PO SCH (08:13)
[2021-03-22] MEDS: VENLAFAXINE HCL XR 150 MG CAPXR PO SCH (08:13)
[2021-03-22] MEDS: niMODipine 30 MG CAP PO SCH ×4 (08:13→20:17)
[2021-03-22] MEDS: levETIRAcetam 500 MG TAB PO SCH ×2 (08:14→20:16)
[2021-03-22] MEDS: VENLAFAXINE HCL XR 75 MG CAPXR PO SCH (08:14)
[2021-03-22] MEDS: busPIRone 15 MG TAB PO SCH ×2 (08:14→20:16)
[2021-03-22] MEDS: POLYETHYLENE (MIRALAX) 17 GM PACK PO SCH (08:14)
--- NOTE | 2021-03-22 08:25 | Neurology Progress Note ---
Date of Service March 22, 2021 Assessment & Plan (1) SAH (subarachnoid hemorrhage): (2) Acute CVA (cerebrovascular accident): (3) Cerebral amyloid angiopathy: Plan: Patient has a history of subarachnoid hemorrhage, originally March 09, 2021. She has had a fluctuating course with some waxing and waning of symptoms. This could be due to vasospasm. I doubt this represents seizure activity and the patient is already "covered" with levetiracetam 500 milligrams twice daily. Clinically the patient is about the same to slightly better than yesterday. I do believe it was any fluctuation in weakness or symptoms from yesterday to today. She had been off Nimotop for 2 days , and this was restarted March 21. Her blood pressure seems to fluctuate some. A little bit low or, like this morning. Patient has mood disorder is on buspirone (15 milligrams twice a day), venlafaxine ( 225 milligrams each morning), and olanzapine ( 2.5 milligrams at bedtime). Recommendations: 1. physical, speech, and occupational therapy 2. Continue Nimotop for now 3. continue levetiracetam 500 milligrams twice a day for now, although I do not believe she is having any seizure-like activity. 4. Have no history regarding her mood disorder but would suggest tapering medication if possible especially olanzapine Overall, I spent a total of 35 minutes with this case including review of records, direct evaluation patient bedside, and discussion of the case with the patient and RN at bedside, and Dr. Roque, including differential diagnosis and treatment options. Admission and Anticipated Discharge Date Admission Date: March 15, 2021 Subjective Is doing well and has no complaint of pain or other issues. Nursing reports no new events overnight. Blood pressure is 174/78. She was put back on Nimotop. Results & Data ([facility]) Vital Signs (Past 12 Hours) Vital Signs Temp Pulse Pulse Resp BP Pulse Ox 03/22/21 03:00 36.7 C 64 20 174/78 H 94 03/22/21 00:00 68 03/21/21 23:00 36.7 C 67 12 123/82 94 Exam (Neuro) Physical Exam: She is awake and alert. Speech is somewhat dysarthric but she is a little more clear than she was yesterday. She can name objects quite well. Sometimes when she is speaking she will have word-finding deficit but tends to get the words she wants eventually. Mood is normal and affect is appropriate. Extraocular eye muscles are intact without nystagmus. There is a asymmetry was smile on the right with the left being normal. There is drift and clumsiness of the right hand. Distally the right upper extremity she has 4/5. Proximally she is closer to 5/5. Left arm and both legs are 5/5. She has no abnormal involuntary movements. PG Care Time/CCT Total # of Minutes Spent Total Time Spent with Patient: Total time spent is greater than 50% in coordination of care (as documented) at patient's floor/unit and/or counseling patient: Coding Level of Care Code 01464 Subseq Hosp Care Lvl 3 Diagnoses SAH (subarachnoid hemorrhage) I60.9 Acute CVA (cerebrovascular accident) I63.9 Cerebral amyloid angiopathy E85.4; I68.0 Time Spent (min) 35
--- NOTE | 2021-03-22 15:10 | Hospitalist Progress Note ---
Date of Service March 22, 2021 Assessment & Plan (1) Acute spontaneous subarachnoid intracranial hemorrhage: Plan: Left frontal SAH - initial dx 03/09/21. Transferred to neuro ICU at [facility] that evening, [place] [facility] [place]. no surgical intervention needed. Returns to ER with right hand numbness, numbness of tongue, slurred speech overnight last pm, diplopia earlier today, and marked elevation in BP. All neuro symptoms resolved during my assessment except for the tongue numbness. CT head today shows mild increase in size of the SAH in comparison to 03/09/21 CT head done at [facility]. However, [facility] neurology reported that the SAH on admission CT is the same as the most recent CT head done in [place]. Transfer [place] [facility] [place] declined / not recommended on admission by neurology at [facility]. The recurrent symptoms are concerning for ongoing vasospasm/ischemia to the left frontal region. Cannot exclude a small stroke in that region (unable to obtain MRI brain due to pacemaker status). 03/16 Patient no longer having slurred speech, continues to have right hand numbness/ Plan is to remain in ICU. CT head multiple unchanged D/W critical care team. 03/17 Transferred out of the ICU. repeat head CT head is stable. awaiting input from PT/OT WILL MONITOR OVERNIGHT. 03/18 Patient is now having broken speech. Repeat CT scan: shows no new stroke. B/P was slightly on the low end. This may be exacerbating her stroke symptoms. ARB reduced to 160 mg HS, add nimodipine to help with blood perfusion to the injured brain will repeat CT scan of brain on Sunday. (unable to obtain MRI brain due to pacemaker status). 03/[address] Watson - nimodipine discontinued due to relative hypotension Continue reduced dose of ARB as above Repeat CT head continues to improve 03/20 Delirious overnight, sleeping most of the day due to olanzapine and morphine given BP stable 03/[address] Brenner, discontinue valsartan and start nimodipine (will reduce to QID to avoid hypotension and worsening delirium at night, hold if sBP < 120) 03/22 Symptoms stable. Able to tolerate some doses but not all of Nimotop. Medically stable for discharge for rehab at this time. Ongoing adjustments of Nimotop can be made at [facility] (2) Numbness of right hand: Plan: see above (3) Hypertensive emergency without congestive heart failure: Plan: Resolved Continue on reduced dose valsartan 160mg PO daily (4) Memory loss: Plan: Suspect she has vascular dementia in light of numerous brain insults as noted in the HPI. (5) Depression with anxiety: Plan: Cont effexor, buspar, zyprexa. Hold clonazepam to reduce worsening stroke like symptoms (6) Epilepsy: Plan: Follows with Dr Watson, [facility]. Cont keppra 500mg BID. [facility] neurology recommended ongoing use of such. (7) History of sick sinus syndrome: Plan: pacemaker in place (8) GERD (gastroesophageal reflux disease): Plan: PPI (9) Hypertension: Plan: see #3 above (10) Hypothyroidism, unspecified: Plan: TSH minimally elevated in 01/2021. Recommend repeat as outpatient. Cont synthroid. (11) DVT prophylaxis: Plan: SCDs chemical means contraindicated Plan: Disposition - medically stable for discharge Admission and Anticipated Discharge Date Admission Date: March 15, 2021 Subjective Continued slurred speech, mild facial droop and right upper extremity weakness and numbness. No significant acute change. Less fluctuating during the day at this time and appears to have stabilized. No fever, chills or infective symptoms. BP remains on the low side after starting Nimotop (missed lunch dose due to hold parameters). Review of Systems Review of Systems: All systems reviewed & are unremarkable except as noted in Subjective Physical Exam Constitutional: WD/WN, vitals as above Respiratory: normal respiratory effort Skin: no rashes, warm and dry Neurologic: + focal motor deficit (wrist extension 2/5, flexion 3/5, elbow flex 4/5, ext 4+/5) and awake; not confused Speech / Cognition: + abnormal speech (mild dysarthria) and + expressive aphasia (mild) Cranial Nerves: normal facial strength Psychiatric: A+Ox3, euthymic affect Results & Data Results & Data ([facility]) Vital Signs (Past 12 Hours) Vital Signs Temp Pulse Pulse Pulse Resp BP BP 03/22/21 12:37 95 H 111/58 L 03/22/21 11:00 36.7 C 79 18 126/65 03/22/21 08:00 85 03/22/21 07:00 76 19 166/76 H Pulse Ox 03/22/21 12:37 03/22/21 11:00 96 02/15/22 08:00 03/22/21 07:00 94 PG Care Time/CCT Total # of Minutes Spent Total Time Spent with Patient: Total time spent is greater than 50% in coordination of care (as documented) at patient's floor/unit and/or counseling patient: Coding Level of Care Code 15457 Subseq Hosp Care Lvl 2 Diagnoses Acute spontaneous subarachnoid intracranial hemorrhage I60.9 Numbness of right hand R20.0 Hypertensive emergency without congestive heart failure I16.1 Memory loss R41.3 Depression with anxiety F41.8 Epilepsy G40.909 History of sick sinus syndrome Z86.79 GERD (gastroesophageal reflux disease) K21.9 Hypertension I10 Hypertension type: essential hypertension Hypothyroidism, unspecified E03.9 DVT prophylaxis Z29.9 (1) Hypertension Hypertension type: essential hypertension Qualified Code(s): I10 - Essential (primary) hypertension
[2021-03-22] MEDS: OLANZAPINE 2.5 MG TAB PO SCH (20:17)
[2021-03-23] MEDS: LEVOTHYROXINE SODIUM 100 MCG TABLET PO SCH (05:41)
[2021-03-23] MEDS: niMODipine 30 MG CAP PO SCH ×4 (11:25→20:42)
[2021-03-23] MEDS: busPIRone 15 MG TAB PO SCH ×2 (11:25→20:42)
[2021-03-23] MEDS: PANTOprazole 40 MG TAB PO SCH (11:25)
[2021-03-23] MEDS: ATORVASTATIN 40 MG TAB PO SCH (11:25)
[2021-03-23] MEDS: VENLAFAXINE HCL XR 150 MG CAPXR PO SCH (11:25)
[2021-03-23] MEDS: VENLAFAXINE HCL XR 75 MG CAPXR PO SCH (11:25)
[2021-03-23] MEDS: levETIRAcetam 500 MG TAB PO SCH ×2 (11:26→20:42)
[2021-03-23] MEDS: POLYETHYLENE (MIRALAX) 17 GM PACK PO SCH (11:26)
--- NOTE | 2021-03-23 12:10 | Hospitalist Progress Note ---
Date of Service March 23, 2021 Assessment & Plan (1) Acute spontaneous subarachnoid intracranial hemorrhage: Plan: Left frontal SAH - initial dx 03/09/21. Transferred to neuro ICU at [facility] that evening, hospitalized at [facility] from 03/10 to 03/12. no surgical intervention needed. Returns to ER with right hand numbness, numbness of tongue, slurred speech overnight last pm, diplopia earlier today, and marked elevation in BP. All neuro symptoms resolved during my assessment except for the tongue numbness. CT head today shows mild increase in size of the SAH in comparison to 03/09/21 CT head done at [facility]. However, [facility] neurology reported that the SAH on admission CT is the same as the most recent CT head done in [place]. Transfer to [facility] [place] was declined / not recommended on admission by neurology at [facility]. The recurrent symptoms are concerning for ongoing vasospasm/ischemia to the left frontal region. Cannot exclude a small stroke in that region (unable to obtain MRI brain due to pacemaker status). 03/16 Patient no longer having slurred speech, continues to have right hand numbness/ Plan is to remain in ICU. CT head multiple unchanged D/W critical care team. 03/17 Transferred out of the ICU. repeat head CT head is stable. awaiting input from PT/OT WILL MONITOR OVERNIGHT. 03/18 Patient is now having broken speech. Repeat CT scan: shows no new stroke. B/P was slightly on the low end. This may be exacerbating her stroke symptoms. ARB reduced to 160 mg HS, add nimodipine to help with blood perfusion to the injured brain will repeat CT scan of brain on Sunday. (unable to obtain MRI brain due to pacemaker status). 03/[address] Watson - nimodipine discontinued due to relative hypotension Continue reduced dose of ARB as above Repeat CT head continues to improve 03/20 Delirious overnight, sleeping most of the day due to olanzapine and morphine given BP stable 03/[address] Brenner, discontinue valsartan and start nimodipine (will reduce to QID to avoid hypotension and worsening delirium at night, hold if sBP < 120) 03/22 Symptoms stable. Able to tolerate some doses but not all of Nimotop. Medically stable for discharge for rehab at this time. Ongoing adjustments of Nimotop can be made at [facility] 03/23 Symptoms stable. Able to tolerate oral doses of Nimotop with current blood pressure. Medically stable for discharge to [facility] although she requires to be off one-to-one therefore discharge will be delayed by day. (2) Numbness of right hand: Plan: see above (3) Hypertensive emergency without congestive heart failure: Plan: Resolved Losartan stopped. Continue on Nimotop 30 mg 4 times daily. (4) Memory loss: Plan: Suspect she has vascular dementia in light of numerous brain insults as noted in the HPI. (5) Depression with anxiety: Plan: Cont effexor, buspar, zyprexa. Hold clonazepam to reduce worsening stroke like symptoms (6) Epilepsy: Plan: Follows with Dr Watson, [facility] [place] Neurology. Cont keppra 500mg BID. [facility] neurology recommended ongoing use of such. (7) History of sick sinus syndrome: Plan: pacemaker in place (8) GERD (gastroesophageal reflux disease): Plan: PPI (9) Hypertension: Plan: see #3 above (10) Hypothyroidism, unspecified: Plan: TSH minimally elevated in 01/2021. Recommend repeat as outpatient. Cont synthroid. (11) DVT prophylaxis: Plan: SCDs chemical means contraindicated Plan: Disposition - medically stable for discharge Admission and Anticipated Discharge Date Admission Date: March 15, 2021 Subjective No significantly acute change in symptoms. However she is using her right hand better today although notably this fluctuates usually throughout the day. Still having some slurred speech. Awaiting rehabilitation at this time. No additional medications given overnight for delirium. Review of Systems Review of Systems: All systems reviewed & are unremarkable except as noted in Subjective Physical Exam Constitutional: WD/WN, vitals as above ENMT: external ear and nose normal, oropharynx normal Respiratory: normal respiratory effort Cardiovascular: RRR, no murmur, no edema Gastrointestinal (Abdomen): normal bowel sounds, soft, nontender, no hepatosplenomegaly Skin: no rashes, warm and dry Neurologic: + focal motor deficit (wrist extension 3/5, flexion 4/5, elbow flex 4/5, ext 4+/5) and awake; not confused Speech / Cognition: + abnormal speech (mild dysarthria) and + expressive aphasia (mild) Motor/Sensory: + pronator drift (right) Cranial Nerves: normal facial strength Psychiatric: A+Ox3, euthymic affect Results & Data Results & Data ([facility]) Vital Signs (Past 12 Hours) Vital Signs Temp Pulse Pulse Resp BP BP Pulse Ox 03/23/21 11:27 36.6 C 77 14 146/75 H 94 03/23/21 05:00 36.7 C 76 14 120/76 96 PG Care Time/CCT Total # of Minutes Spent Total Time Spent with Patient: Total time spent is greater than 50% in coordination of care (as documented) at patient's floor/unit and/or counseling patient: Coding Level of Care Code 45486 Subseq Hosp Care Lvl 1 Diagnoses Acute spontaneous subarachnoid intracranial hemorrhage I60.9 Numbness of right hand R20.0 Hypertensive emergency without congestive heart failure I16.1 Memory loss R41.3 Depression with anxiety F41.8 Epilepsy G40.909 History of sick sinus syndrome Z86.79 GERD (gastroesophageal reflux disease) K21.9 Hypertension I10 Hypertension type: essential hypertension Hypothyroidism, unspecified E03.9 DVT prophylaxis Z29.9 (1) Hypertension Hypertension type: essential hypertension Qualified Code(s): I10 - Essential (primary) hypertension
[2021-03-23] MEDS: OLANZAPINE 2.5 MG TAB PO SCH (20:43)
[2021-03-24] MEDS: LEVOTHYROXINE SODIUM 100 MCG TABLET PO SCH (06:36)
[2021-03-24] MEDS: busPIRone 15 MG TAB PO SCH ×2 (08:31→20:15)
[2021-03-24] MEDS: niMODipine 30 MG CAP PO SCH ×4 (08:31→20:15)
[2021-03-24] MEDS: VENLAFAXINE HCL XR 150 MG CAPXR PO SCH (08:32)
[2021-03-24] MEDS: PANTOprazole 40 MG TAB PO SCH (08:32)
[2021-03-24] MEDS: POLYETHYLENE (MIRALAX) 17 GM PACK PO SCH (08:32)
[2021-03-24] MEDS: ATORVASTATIN 40 MG TAB PO SCH (08:32)
[2021-03-24] MEDS: VENLAFAXINE HCL XR 75 MG CAPXR PO SCH (08:32)
[2021-03-24] MEDS: levETIRAcetam 500 MG TAB PO SCH ×2 (08:32→20:15)
--- NOTE | 2021-03-24 08:41 | Neurology Progress Note ---
Date of Service March 24, 2021 Assessment & Plan (1) SAH (subarachnoid hemorrhage): (2) Acute CVA (cerebrovascular accident): (3) Cerebral amyloid angiopathy: Plan: Patient has a history of a left frontal subarachnoid hemorrhage, presenting originally March 09, 2021 with right-sided weakness and numbness and slurred speech, with some word-finding difficulty. she went to [facility] and was discharged March 11, requiring no surgical treatment. She was diagnosed with subarachnoid hemorrhage, cerebral angiopathy, and TIA. she was also treated for orthostasis with IV fluids and given levetiracetam 500 milligrams twice daily for seizure prophylaxis ( no actual seizures identified). On March 15 she return to the emergency room with slurred speech dysesthesias of the right hand. she had some double vision also. A CT scan was remarkable for a questionable increase in the size of the left frontoparietal subarachnoid hemorrhage, but subsequent CTs of the head ( March 18 and March 19) showed that the subarachnoid was probably decreasing in size. There was concern of fluctuation of symptoms in the right upper extremity and speech and she was restarted on nimodipine on March 21 after being off for 2 days. Since the , I have noted that she does not have any significant fluctuation in strength of the right upper extremity and in fact has less clumsiness today than she had earlier in the week. Her dysarthria is improved also. 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 She had a fluctuating course with some waxing and waning of symptoms. This could be due to vasospasm. I doubt this represents seizure activity and the patient is already "covered" with levetiracetam 500 milligrams twice daily. Patient has a mood disorder on buspirone (15 milligrams twice a day), venlafaxine ( 225 milligrams each morning), and olanzapine ( 2.5 milligrams at bedtime). Recommendations: 1. Continue increasing activity as able. 2. Continue Nimotop for now- Typically patients take this medication for 3 weeks total 3. continue levetiracetam 500 milligrams twice a day for now, although I do not believe she is having (or had) any seizure-like activity. This could be tapered off as an outpatient. 4. Have no history regarding her mood disorder but would suggest tapering medication if possible, especially olanzapine 5. I have no further neurologic testing or treatment recommendations to make on this patient at this time. Please contact my compare further assistance on this case and she can follow up with one of our PAs (for Dr. Watson) in 1-2 weeks as an outpatient. Overall, I spent a total of 35 minutes with this case including review of records, direct evaluation patient bedside, and discussion of the case with the patient and RN at bedside, and Dr. Roque, including differential diagnosis and treatment options. Admission and Anticipated Discharge Date Admission Date: March 15, 2021 Subjective patient feels better and has no pain or headache. She feels she is using her right upper extremity better and her speech is improved Nursing reports no new issues. The pressure is 113/73 with pulse 69 regular. She is afebrile. Glucose is 107 this a.m.. Results & Data ([facility]) Vital Signs (Past 12 Hours) Vital Signs Temp Pulse Pulse Resp BP Pulse Ox 03/24/21 07:21 69 03/24/21 07:00 36.7 C 76 20 113/73 94 03/24/21 03:15 36.6 C 72 18 126/72 93 03/23/21 22:00 36.9 C 74 20 118/69 92 Exam (Neuro) Physical Exam: She is awake and alert. She can name objects and colors and has some very mild dysarthria only. Mood is normal and affect is appropriate. She interacts well. Extraocular muscles are intact without nystagmus. There is no facial droop or weakness on the right side. With outstretched arms, there is drift on the right. She has clumsiness in the right hand. She is attempting to use her right hand to eat which is actually better today than it was 2 days ago when I last saw her. She is sitting up in bed well PG Care Time/CCT Total # of Minutes Spent Total Time Spent with Patient: Total time spent is greater than 50% in coordination of care (as documented) at patient's floor/unit and/or counseling patient: Coding Level of Care Code 28776 Subseq Hosp Care Lvl 3 Diagnoses SAH (subarachnoid hemorrhage) I60.9 Acute CVA (cerebrovascular accident) I63.9 Cerebral amyloid angiopathy E85.4; I68.0
--- NOTE | 2021-03-24 17:41 | Hospitalist Progress Note ---
Date of Service March 24, 2021 Assessment & Plan (1) Acute spontaneous subarachnoid intracranial hemorrhage: Plan: Left frontal SAH - initial dx 03/09/21. Transferred to neuro ICU at [facility] that evening, hospitalized at [facility] from 03/10 to 03/12. no surgical intervention needed. Returns to ER with right hand numbness, numbness of tongue, slurred speech overnight last pm, diplopia earlier today, and marked elevation in BP. All neuro symptoms resolved during my assessment except for the tongue numbness. CT head today shows mild increase in size of the SAH in comparison to 03/09/21 CT head done at [facility]. However, [facility] neurology reported that the SAH on admission CT is the same as the most recent CT head done in [place]. Transfer to [facility] was declined / not recommended on admission by neurology at [facility]. The recurrent symptoms are concerning for ongoing vasospasm/ischemia to the left frontal region. Cannot exclude a small stroke in that region (unable to obtain MRI brain due to pacemaker status). 03/16 Patient no longer having slurred speech, continues to have right hand numbness/ Plan is to remain in ICU. CT head multiple unchanged D/W critical care team. 03/17 Transferred out of the ICU. repeat head CT head is stable. awaiting input from PT/OT WILL MONITOR OVERNIGHT. 03/18 Patient is now having broken speech. Repeat CT scan: shows no new stroke. B/P was slightly on the low end. This may be exacerbating her stroke symptoms. ARB reduced to 160 mg HS, add nimodipine to help with blood perfusion to the injured brain will repeat CT scan of brain on Sunday. (unable to obtain MRI brain due to pacemaker status). 03/[address] Watson - nimodipine discontinued due to relative hypotension Continue reduced dose of ARB as above Repeat CT head continues to improve 03/20 Delirious overnight, sleeping most of the day due to olanzapine and morphine given BP stable 03/[address] Brenner, discontinue valsartan and start nimodipine (will reduce to QID to avoid hypotension and worsening delirium at night, hold if sBP < 120) 03/22 Symptoms stable. Able to tolerate some doses but not all of Nimotop. Medically stable for discharge for rehab at this time. Ongoing adjustments of Nimotop can be made at [facility] 216 Symptoms stable. Able to tolerate oral doses of Nimotop with current blood pressure. Medically stable for discharge to [facility] although she requires to be off one-to-one therefore discharge will be delayed by day. 03/24 Symptoms improved. Better right hand movement. Improved speech. Remains medically stable for discharge. (2) Numbness of right hand: Plan: see above (3) Hypertensive emergency without congestive heart failure: Plan: Resolved Losartan stopped. Continue on Nimotop 30 mg 4 times daily. (4) Memory loss: Plan: Suspect she has vascular dementia in light of numerous brain insults as noted in the HPI. (5) Depression with anxiety: Plan: Cont effexor, buspar, zyprexa. Hold clonazepam to reduce worsening stroke like symptoms (6) Epilepsy: Plan: Follows with Dr Watson, [facility]. Cont keppra 500mg BID. [facility] neurology recommended ongoing use of such. (7) History of sick sinus syndrome: Plan: pacemaker in place (8) GERD (gastroesophageal reflux disease): Plan: PPI (9) Hypertension: Plan: see #3 above (10) Hypothyroidism, unspecified: Plan: TSH minimally elevated in 01/2021. Recommend repeat as outpatient. Cont synthroid. (11) DVT prophylaxis: Plan: SCDs chemical means contraindicated Plan: Disposition - medically stable for discharge Admission and Anticipated Discharge Date Admission Date: March 15, 2021 Physical Exam Constitutional: WD/WN, vitals as above Respiratory: normal respiratory effort Gastrointestinal (Abdomen): normal bowel sounds, soft, nontender, no hepatosplenomegaly Neurologic: + focal motor deficit (wrist extension 4/5, flexion 4/5, elbow flex 4/5, ext 4+/5) and awake; not confused Speech / Cognition: + abnormal speech (mild dysarthria) and + expressive aphasia (mild) Cranial Nerves: normal facial strength Psychiatric: A+Ox3, euthymic affect Results & Data Results & Data ([facility]) Vital Signs (Past 12 Hours) Vital Signs Temp Pulse Pulse Resp BP BP Pulse Ox 03/24/21 14:54 35.8 C L 78 18 136/65 94 03/24/21 11:54 36.4 C L 77 20 132/74 92 03/24/21 07:21 69 03/24/21 07:00 36.7 C 76 20 113/73 94 PG Care Time/CCT Total # of Minutes Spent Total Time Spent with Patient: Total time spent is greater than 50% in coordination of care (as documented) at patient's floor/unit and/or counseling patient: Coding Level of Care Code 46320 Subseq Hosp Care Lvl 1 Diagnoses Acute spontaneous subarachnoid intracranial hemorrhage I60.9 Numbness of right hand R20.0 Hypertensive emergency without congestive heart failure I16.1 Memory loss R41.3 Depression with anxiety F41.8 Epilepsy G40.909 History of sick sinus syndrome Z86.79 GERD (gastroesophageal reflux disease) K21.9 Hypertension I10 Hypertension type: essential hypertension Hypothyroidism, unspecified E03.9 DVT prophylaxis Z29.9 (1) Hypertension Hypertension type: essential hypertension Qualified Code(s): I10 - Essential (primary) hypertension
[2021-03-24] MEDS: OLANZAPINE 2.5 MG TAB PO SCH (20:15)
[2021-03-25] MEDS: LEVOTHYROXINE SODIUM 100 MCG TABLET PO SCH (06:06)
[2021-03-25] MEDS: PANTOprazole 40 MG TAB PO SCH (07:55)
[2021-03-25] MEDS: VENLAFAXINE HCL XR 75 MG CAPXR PO SCH (07:55)
[2021-03-25] MEDS: ATORVASTATIN 40 MG TAB PO SCH (07:55)
[2021-03-25] MEDS: niMODipine 30 MG CAP PO SCH ×2 (07:55→11:23)
[2021-03-25] MEDS: busPIRone 15 MG TAB PO SCH (07:55)
[2021-03-25] MEDS: POLYETHYLENE (MIRALAX) 17 GM PACK PO SCH (07:56)
[2021-03-25] MEDS: VENLAFAXINE HCL XR 150 MG CAPXR PO SCH (07:56)
[2021-03-25] MEDS: levETIRAcetam 500 MG TAB PO SCH (07:56)
--- NOTE | 2021-03-25 16:33 | Discharge Summary ---
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 She also had had slurred speech per records. CT head showed L frontal SAH. Transferred to neuro ICU at [facility]. She was hospitalized there from 03/10 to 03/11. CTAs did not show aneurysm or vascular malformation. MRI unable to be obtained 2nd to pacemaker status. Neurosurgery did not advise evacuation/intervention. SAH was presumed to be from cerebral amyloid angiopathy. Afternoon of 03/11 was discharged, and while getting into the car with her , experienced slurred speech again, confusion, and b/l lower extremity weakness. She was readmitted to [facility] that afternoon and released the next day. It was felt that the episode of weakness/confusion on 03/11 was due to orthostatic hypotension. The patient's reports that she was stable on Sunday pm following her 2nd hospital discharge as well as Sunday/Sunday. However, Sunday pm, she apparently had slurred speech "all night." Sunday afternoon - home health nurse was visiting her. She was asked to sign some paper work. When she went to hold the pen to sign the paperwork she noted numbness of the right hand along with weakness. This persisted, and her brought her to [facility] for evaluation. In the ER her head CT showed the left frontal SAH and it was modestly larger in comparison to the previous CT done at [facility] on 03/09/21. Neurology was contacted at [facility] twice, and the CT done this evening was compared with the most recent CT done at [facility]. Neurology at [facility] stated that the CT tonight is unchanged from the CTs done at [facility]. [facility] Neurology felt that the patient could safely stay at [facility]. During my admission assessment the patient states that her right hand numbness is improved. However, she now has numbness of the tongue. She also states that she had double vision earlier today while watching TV. The characters on TV would be double. Denies any headache, visual loss or field cuts, left sided numbness/weakness, RLE weakness/numbness, or vertigo. Principal Diagnosis Hypertensive emergency Subarachnoid hemorrhage (prior diagnosis to this hospitalization) Discharge Exam Constitutional WD/WN, vitals as above Neck trachea midline, no thyromegaly Respiratory normal respiratory effort, lungs clear to auscultation normal respiratory effort Cardiovascular RRR, no murmur, no edema Gastrointestinal (Abdomen) normal bowel sounds, soft, nontender, no hepatosplenomegaly Skin no rashes, warm and dry Neurologic + focal motor deficit (wrist extension 4/5, flexion 4/5, elbow flex 4/5, ext 4+/5) and awake; not confused Speech / Cognition: + abnormal speech (mild dysarthria) and + expressive aphasia (mild) Motor/Sensory: + pronator drift (right) Cranial Nerves: normal facial strength Psychiatric A+Ox3, euthymic affect Discharge Data Allergies Allergy/AdvReac Type Severity Reaction Status Date / Time levetiracetam [From [facility]] Allergy Unknown Unknown Verified 03/15/21 17:02 lisinopril Allergy Unknown UNKNOWN Verified 03/15/21 17:02 amoxicillin AdvReac Intermediate GI UPSET Verified 03/15/21 17:02 clavulanic acid AdvReac Intermediate GI UPSET Verified 03/15/21 17:02 donepezil AdvReac Intermediate NAUSEATED Verified 03/15/21 17:02 lamotrigine AdvReac Intermediate TIREDNESS Verified 03/15/21 17:02 tramadol AdvReac Intermediate GI UPSET Verified 03/15/21 17:02 hydrochlorothiazide AdvReac Unknown Unknown. Verified 03/15/21 17:02 triamterene AdvReac Unknown Unknown. Verified 03/15/21 17:02 Consultations 03/15/21 17:25 ED Decision to Admit Stat 03/15/21 22:25 Consult Graphics Coordinator Routine Consult Neurology Routine Ordered Studies 03/15/21 16:16 CT head/brain wo con Stat Impression: Interval slight increase in left frontal subarachnoid hemorrhage without midline shift. Chronicity of this hemorrhage between and March 09 cannot be determined, but acute rebleed cannot be excluded. No new sites of hemorrhage are seen. 03/16/21 00:28 CT head/brain wo con Urgent IMPRESSION: Compared to yesterday study, there has been slight interval increase in the amount of subarachnoid hemorrhage within the left frontal parietal lobe. Increasing surrounding edema with increased effacement of the sulci and gyri is also seen. 03/16/21 10:17 CT head/brain wo con Stat IMPRESSION: 1. Small amount of acute subarachnoid hemorrhage overlying the left frontal lobe. Slight decrease in attenuation of this hemorrhage since prior exam. No new sites of hemorrhage. 2. No change in mild sulcal effacement within the left frontal and parietal lobes. No midline shift. 03/16/21 22:00 CT head/brain wo con Urgent IMPRESSION: Slight decrease in a small amount of subarachnoid hemorrhage overlying the left frontal lobe. Otherwise, unchanged appearance of the brain. 03/18/21 14:44 CT head/brain wo con Stat IMPRESSION: 1. Compared to the previous examination, there has been continued interval resolution of previously identified left frontal parietal subarachnoid hem orrhage. 2. No new subdural, subarachnoid or intraparenchymal hemorrhage is seen. 3. No acute infarct or cerebral edema. 4. Cerebral cortical atrophy and remote small vessel disease are again seen. 5. There is again evidence for previous craniotomy. 03/19/21 08:53 CT head/brain wo con Urgent Impression: 1. Slight improvement in the small amount of left high convexity frontoparietal subarachnoid hemorrhage. 2. No new areas of intracranial hemorrhage identified. 3. No acute infarct. Hospital Course (1) Acute spontaneous subarachnoid intracranial hemorrhage: Luna Aguilar is an 86 year old female admitted to [facility] from March 15 - 2021 due to recurrent right upper extremity weakness and slurred speech following an initial subarachnoid hemorrhage that was diagnosed on Mar 09 and treated conservatively at [facility]. No new bleed was found on multiple follow up CT head scans. Suspected her symptoms are due to recurrence from hypertensive urgency on admission and possible ongoing vasospasms. These have continued to be intermittent throughout her hospital stay but appears to now be more stable on nimodipine 40mg QID. Recommend continuing this for the next month and she can potentially switch back to your usual valsartan after this - She should follow up with her neurosurgeons and PCP as previously arranged. Olanzapine was previously increased from 1.25 to 2.5mg for delirium - recommend trying titrate back to 1.25mg if possible at home however given transition to another facility will continue on 2.5mg at the present time. She is now medically stable for discharge but requiring further rehabilitation and will be transferred to [facility] to enable this. (2) Numbness of right hand: (3) Hypertensive emergency without congestive heart failure: (4) Memory loss: (5) Depression with anxiety: (6) Epilepsy: (7) History of sick sinus syndrome: (8) GERD (gastroesophageal reflux disease): (9) Hypertension: (10) Hypothyroidism, unspecified: (11) DVT prophylaxis: Total Time Total Time Spent Total Time Spent (In Minutes): 35 Discharge Plan Discharge Items Patient Disposition: Transfer Inpatient Rehab Fac Reason For Visit: SAH; HYPERTENSIVE EMERGENCY Discharge Diagnosis: Hypertensive emergency Subarachnoid hemorrhage (prior diagnosis to this hospitalization) Activity: Resume your previous activity Non-emergency contact: Primary Care Provider Call non-emergency contact if: you have any medication questions and your symptoms worsen Follow-up/Referrals: Cass Anne DO [Primary Care Provider] - Diet: Heart Healthy Addtl Attending Provider Instructions: You were admitted to [facility] from March 15 - 2021 due to recurrent right upper extremity weakness and slurred speech following you subarachnoid hemorrhage that was treated conservatively at [facility]. No new bleed was found on multiple follow up CT head scans. Suspected your symptoms likely recurred due to hypertensive urgency on admission and possible ongoing vasospasms since your symptoms were initially very intermittent. We now have your blood pressure well controlled on nimodipine 40mg QID. Recommend continuing this for the next month but can potentially switch back to your usual valsartan after this - will defer to your neurosurgeons and primary care provider. Olanzapine was previously increased from 1.25 to 2.5mg for delirium - recommend trying to go back to 1.25mg if possible at home however given transition to another facility will keep you on 2.5mg at the present time. Kind regards, Dr Magdaleno Roque Pending Studies at Discharge: No Stand-Alone Forms: My [facility] Skilled Items Patient informed of condition?: Yes DNR: No Discharge Level of Care: Acute rehab Communicable Disease: No Discharge Prognosis: Stable Lines: None Urinary Catheter: No Medications and DC Order Prescriptions: New nimodipine 30 mg Capsule 30 mg PO QID 30 Days Qty: 120 RF: 0 Continued acetaminophen [Tylenol] 325 mg tablet 650 mg PO Q4H PRN (Reason: Pain, Mild) RF: 0 levothyroxine 100 mcg tablet 100 mcg PO QAM Qty: 90 RF: 1 atorvastatin 40 mg tablet 40 mg PO QAM Qty: 90 RF: 1 clonazepam 1 mg tablet 0.25 mg PO DAILY PRN (Reason: anxiety, seizure) RF: 0 olanzapine 2.5 mg tablet 2.5 mg PO HS RF: 0 levetiracetam 500 mg tablet 500 mg PO BID Qty: 60 RF: 2 venlafaxine 75 mg capsule,extended release 24hr 75 mg PO QAM RF: 0 venlafaxine 150 mg tablet extended release 24 hr 150 mg PO QAM RF: 0 buspirone 15 mg tablet 15 mg PO BID RF: 0 Discontinued valsartan 320 mg tablet 320 mg PO HS Qty: 90 RF: 1 Discharge Orders: Discharge Order (Routine); Ordered 03/25/21 Ordered By: Magdaleno Ho/Other Patient Handouts: Aphasia: Improving Communication Admission Data Admit Date/Time: 03/15/21 20:43 Attending Provider: Magdaleno Roque Admit Provider: Magdaleno Hayden Primary Care Provider: Cass Anne Other Providers: [facility] ; Magdaleno Hayden ; Doe Flaherty ; Wilian Watson Other Interventions: Discharge Summary Assessment (RN) Last Done: 03/25/21 16:52 Coding Level of Care Code D/C DAY MANAGEMENT >30 MINS Diagnoses Acute spontaneous subarachnoid intracranial hemorrhage I60.9 Numbness of right hand R20.0 Hypertensive emergency without congestive heart failure I16.1 Memory loss R41.3 Depression with anxiety F41.8 Epilepsy G40.909 History of sick sinus syndrome Z86.79 GERD (gastroesophageal reflux disease) K21.9 Hypertension I10 Hypertension type: essential hypertension Hypothyroidism, unspecified E03.9 DVT prophylaxis Z29.9
== END 2021-03-25 17:36 | DRG 65 ==
LOC: ED 16:32 → 1E 20:43 → SUATTDRO 20:43 → 1E 22:00 → 2S 03-23 15:58 → 2N 03-23 19:06

== ENCOUNTER 2024-04-18 11:04 | Inpatient (IN) ==
--- NOTE | 2024-04-18 11:06 | Emergency Department Note ---
Impression & Plan Acute hypoxemic respiratory failure due to COVID-19, Elevated troponin, Generalized weakness ED Provider Note NAME: JANES BOYD AGE: 89 SEX: F : 1935 ARRIVES VIA: Ambulance INFORMANT: Patient, nursing report ED PROVIDER(S): Jose Simpson MD CHIEF COMPLAINT: Weakness, cough MEDICAL DECISION MAKING: Patient presents with the above. Noted to be 88% on room air so the patient was placed on 2 L nasal cannula supplemental oxygen. IV was established and blood work was obtained. Clinically appears dry. Patient oriented to person and place at this time. Ordered IV fluids BioFire and chest x-ray. DuoNeb also ordered. EKG without overt concerning findings. Chest x-ray with possible hypoinflation. Clinically patient appears dry which is why she was ordered IV fluids. This recent wellness note does not show evidence of CHF per review of the patient's home as the patient is not on diuretics. Blood work shows a normal white count H&H and platelet count. The patient's kidney function is unremarkable. BSG 167. Initial troponin of 22.1. TSH elevated but free T4 normal. Urinalysis does not show evidence of obvious infection. COVID-19 positive. The patient was ordered IV dexamethasone 6 mg. Given the patient's hypoxia and cough to believe the patient would benefit from admission. I did speak the on-call medicine service and the patient was admitted by Dr. Ordonez. Critical Care: I have personally spent 45 minutes of critical care time in direct management of this patient. This includes bedside care, interpretation of diagnostic studies, and testing, discussion with consultants, patient, and family members, and other require inpatient management activities. This 45 minutes is in excess of all separately billable procedures. Discussion w/ other healthcare providers: Dr. Ordonez inpatient medicine service Prior /Outside records reviewed: I reviewed part of a primary care visit from January 08, [address] Owusu. Patient was seen for annual Medicare wellness exam. History of dementia and hearing loss depression hypertension hypothyroidism. Patient did have a change in Keppra. Switch to a liquid. Differential diagnosis: Infection, dehydration, metabolic abnormality, hypo/hyperglycemia, electrolyte imbalance, anemia, UTI, pneumonia, thyroid dysfunction among others were considered. Diagnostics, as interpreted by me: ECG: Sinus rhythm, first-degree AV block, rate of 83, prolonged ID normal QRS, normal axis no obvious STEMI noted. Cardiac monitoring: An order was placed for continuous cardiac monitoring. The monitor shows a rate of 85 with sinus rhythm. Patient was placed on pulse oximetry Medical decision rules: None Imaging studies: I informally interpreted the patient's chest x-ray without obvious pneumonia, device noted in the right chest. Possible hypoinflation with formal report to follow. HPI: Patient presents due to concern for weakness and cough. The patient reportedly has had progressively worsening weakness as well as cough. Unsure as to whether not this is productive. Patient with a known history dementia and states that she lives with her as well as with somebody else but is unsure who. Patient states that she lives in [place] and is oriented to person and that she is currently at the hospital. No reported recent falls or trauma. Afebrile upon presentation. Patient denies any smoking history does not use oxygen. Patient denies any abdominal pain or issues with using the bathroom. PAST MEDICAL HISTORY: See Below PAST SURGICAL HISTORY: See Below SOCIAL HISTORY: See Below HOME MEDICATIONS: See Below ALLERGIES: See Below VITALS: See Below PHYSICAL EXAMINATION: GENERAL: NAD, non-toxic. EYE EXAM: Normal conjunctiva. PERRL, no anisocoria and EOM's grossly intact w/o pain. OROPHARYNX: Dry mucous membranes. Grossly normal dentition. NECK: Trachea midline, no stridor. Supple, no nuchal rigidity, no adenopathy, non-tender. No signs of meningismus. FROM of the neck with good chin to chest and neck extension. LUNGS: Clear to auscultation. Normal chest wall mechanics. HEART: NSR, no MRG. ABDOMEN: Abdomen soft, non-tender, no masses, no rebound or guarding. BACK: No CVA TTP. SKIN: No rashes and no bruising. UPPER EXTREMITIES: Upper extremities are grossly normal. LOWER EXTREMITIES: Grossly normal, 1+ symmetric lower extremity edema without calf pain or erythema. NEURO EXAM: A&O x3, cranial nerves II-XII grossly intact, normal speech, moves all 4 extremities. 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, traumatic Insomnia Epilepsy Dyslipidemia Cognitive disorder History of basal cell carcinoma (BCC) of skin Encephalomalacia Carotid atherosclerosis Vitamin D deficiency Osteoarthritis History of sick sinus syndrome s/p PPM GERD (gastroesophageal reflux disease) History of TIA (transient ischemic attack) (2013) History of CVA (cerebrovascular accident) (Acute 2013) History of subdural hemorrhage (2013) right temporal region, s/p craniotomy/evacuation; SDH 2nd trauma; 08/2013 Diverticulosis Hypertension Hypothyroidism, unspecified Medical History Acute CVA (cerebrovascular accident) Memory loss Surgical History History of right hip replacement (03/2019) H/O craniotomy r sided w/ removal of subdural hematoma, temporal intraparenchymal hemorrhage, 08/18/2013 Status post biventricular cardiac pacemaker insertion 1991, battery change 2007 & 07/2018 S/P tonsillectomy Hx of hysterectomy S/P cholecystectomy Status post Mohs surgery Family History Mother Hypertension Father Heart disease Myocardial infarction Brother Heart disease Family history of diabetes mellitus Myocardial infarction Sister Heart disease Hypertension Family history of diabetes mellitus Breast cancer Myocardial infarction Brother Myocardial infarction Sister Myocardial infarction Son , Sep 2020 COPD (chronic obstructive pulmonary disease) Brain bleed Denies family history of Ovarian cancer Prostate cancer Colorectal cancer Social History Smoking Status: Unknown if ever smoked Second Hand Exposure: Yes (FAMILY SMOKES); Do You Dip or Chew Tobacco: No; Hx Alcohol Use: No Hx Substance Use: No Preferred Language: Welsh Communication Ability: confused Visual Impairment: Limited Hearing Ability: Normal 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 ) during the past year weight has: remained stable Dental Care, Regularly: No Physical Activity Frequency: Other Physical Activity Frequency Comment: limited Seatbelt Use: always Sunscreen Use: Yes Assistive Devices: Walker Allergies Allergies Allergy/AdvReac Type Severity Reaction Status Date / Time lisinopril Allergy Unknown UNKNOWN Verified 10/23/23 11:11 amoxicillin AdvReac Intermediate GI UPSET Verified 10/23/23 11:11 clavulanic acid AdvReac Intermediate GI UPSET Verified 10/23/23 11:11 donepezil AdvReac Intermediate NAUSEATED Verified 10/23/23 11:11 lamotrigine AdvReac Intermediate TIREDNESS Verified 10/23/23 11:11 tramadol AdvReac Intermediate GI UPSET Verified 10/23/23 11:11 hydrochlorothiazide AdvReac Unknown Unknown. Verified 10/23/23 11:11 triamterene AdvReac Unknown Unknown. Verified 10/23/23 11:11 Home Meds Home Medications Medication Instructions Recorded Confirmed aripiprazole 2 mg tablet 2 mg PO DAILY 09/12/22 04/18/24 duloxetine 60 mg capsule,delayed 60 mg PO BID 01/08/24 04/18/24 release ramelteon 8 mg tablet 8 mg PO UD 01/08/24 04/18/24 trazodone 50 mg tablet 50 mg PO UD 01/08/24 04/18/24 Previous Rx's Medication Instructions Recorded amlodipine 10 mg tablet 10 mg PO DAILY #90 tabs 11/07/23 levothyroxine 125 mcg/mL oral 125 mcg PO DAILY #30 mL 01/08/24 solution cholecalciferol (vitamin D3) 50 2,000 unit PO DAILY #90 caps 01/17/24 mcg (2,000 unit) capsule memantine 21 mg capsule 21 mg PO DAILY #90 ea 01/31/24 sprinkle,extended release 24hr levetiracetam 100 mg/mL oral 500 mg (5 mL) PO BID #900 mL 02/05/24 solution Results & Data (ED) Vital Signs Vital Signs - 24 hr 04/18/24 11:10 04/18/24 11:13 04/18/24 11:17 Temperature 37.3 C Temperature Source Oral Pulse Rate 82 78 Pulse Rate [Apical] Pulse Rate from SpO2 Sensor Pulse Rhythm Regular Pulse Rhythm [Apical] Pulse Strength Normal Pulse Strength [Apical] Respiratory Rate 24 Respiratory Effort / Characteristics Non-Labored Spontaneous Respiratory Depth Normal Respiratory Pattern Regular Blood Pressure 131/76 Blood Pressure [Left Arm] Blood Pressure Mean 94 Blood Pressure Mean [Left Arm] Blood Pressure Position Semi-fowlers Blood Pressure Position [Left Arm] Pulse Oximetry 88 L 92 Oxygen Delivery Method Room Air Nasal Cannula Oxygen Flow Rate 3 Sepsis Recent Fever Within 48 Hours No Sepsis New/Unexplained Change in Mental Status No Sepsis Action Taken by Nursing No Action Required 04/18/24 11:17 04/18/24 11:17 04/18/24 11:30 Temperature 37.3 C Temperature Source Oral Pulse Rate 78 Pulse Rate [Apical] 85 Pulse Rate from SpO2 Sensor Pulse Rhythm Regular Pulse Rhythm [Apical] Regular Pulse Strength Pulse Strength [Apical] Normal Respiratory Rate 24 24 Respiratory Effort / Characteristics Non-Labored Spontaneous Respiratory Depth Normal Respiratory Pattern Regular Blood Pressure 133/76 Blood Pressure [Left Arm] 131/76 Blood Pressure Mean 90 Blood Pressure Mean [Left Arm] 94 Blood Pressure Position Blood Pressure Position [Left Arm] Semi-fowlers Pulse Oximetry 88 L 93 Oxygen Delivery Method Room Air Nasal Cannula Oxygen Flow Rate 2 Sepsis Recent Fever Within 48 Hours Sepsis New/Unexplained Change in Mental Status Sepsis Action Taken by Nursing 04/18/24 11:44 04/18/24 12:05 04/18/24 12:32 Temperature Temperature Source Pulse Rate 79 78 85 Pulse Rate [Apical] Pulse Rate from SpO2 Sensor 79 78 84 Pulse Rhythm Pulse Rhythm [Apical] Pulse Strength Pulse Strength [Apical] Respiratory Rate 20 26 H 22 Respiratory Effort / Characteristics Respiratory Depth Respiratory Pattern Blood Pressure 134/67 121/82 Blood Pressure [Left Arm] Blood Pressure Mean 89 95 Blood Pressure Mean [Left Arm] Blood Pressure Position Blood Pressure Position [Left Arm] Pulse Oximetry 97 93 94 Oxygen Delivery Method Nasal Cannula Nasal Cannula Nasal Cannula Oxygen Flow Rate 2 2 2 Sepsis Recent Fever Within 48 Hours Sepsis New/Unexplained Change in Mental Status Sepsis Action Taken by Nursing 04/18/24 13:00 04/18/24 13:12 04/18/24 14:00 Temperature Temperature Source Pulse Rate 106 H Pulse Rate [Apical] Pulse Rate from SpO2 Sensor Pulse Rhythm Pulse Rhythm [Apical] Pulse Strength Pulse Strength [Apical] Respiratory Rate 22 Respiratory Effort / Characteristics Respiratory Depth Respiratory Pattern Blood Pressure 102/72 135/41 L Blood Pressure [Left Arm] Blood Pressure Mean 93 44 Blood Pressure Mean [Left Arm] Blood Pressure Position Blood Pressure Position [Left Arm] Pulse Oximetry 95 Oxygen Delivery Method Nasal Cannula Oxygen Flow Rate 2 Sepsis Recent Fever Within 48 Hours Sepsis New/Unexplained Change in Mental Status Sepsis Action Taken by Nursing 04/18/24 14:05 Temperature Temperature Source Pulse Rate Pulse Rate [Apical] 82 Pulse Rate from SpO2 Sensor Pulse Rhythm Pulse Rhythm [Apical] Regular Pulse Strength Pulse Strength [Apical] Normal Respiratory Rate 24 Respiratory Effort / Characteristics Non-Labored Spontaneous Respiratory Depth Normal Respiratory Pattern Regular Blood Pressure Blood Pressure [Left Arm] 135/41 L Blood Pressure Mean Blood Pressure Mean [Left Arm] 72 Blood Pressure Position Blood Pressure Position [Left Arm] Semi-fowlers Pulse Oximetry 91 Oxygen Delivery Method Nasal Cannula Oxygen Flow Rate 3 Sepsis Recent Fever Within 48 Hours Sepsis New/Unexplained Change in Mental Status Sepsis Action Taken by Half-Way Medications Current Medication List: was personally reviewed by me Laboratory Data Attestation: I reviewed the patient's lab results. 04/18/24 11:28 04/18/24 12:34 Lab Results 04/18/24 04/18/24 04/18/24 Range/Units 11:28 12:30 12:34 WBC 6.72 (4.8-10.8) K/ul RBC 4.70 (4.20-5.40) M/uL Hgb 15.1 (12.0-16.0) g/dl Hct 43.7 (37.0-47.0) % MCV 93.0 (80.0-100.0) fL MCH 32.1 (25.0-34.0) pg MCHC 34.6 (32.0-36.0) g/dL RDW Std Deviation 44.5 (36.4-46.3) fL RDW Coeff of Carmen 13.2 (11.5-14.5) % Plt Count 215 (130-400) K/uL MPV 10.1 (9.4-12.4) fL Immature Gran % (Auto) 0.3 % Neut % (Auto) 67.6 % Lymph % (Auto) 15.8 % [place] % (Auto) 13.5 % Eos % (Auto) 2.2 % Baso % (Auto) 0.6 % Neut # (Auto) 4.54 (1.40-6.50) K/uL Lymph # (Auto) 1.06 L (1.20-3.40) K/uL [place] # (Auto) 0.91 H (0.11-0.59) K/uL Eos # (Auto) 0.15 (0.00-0.50) K/uL Baso # (Auto) 0.04 (0.00-0.20) K/uL Immature Gran # (Auto) 0.02 (0.01-0.20) K/uL Sodium Cancelled 141 Potassium Cancelled 3.7 Chloride Cancelled 108 H Carbon Dioxide Cancelled 26 Anion Gap Cancelled 7 BUN Cancelled 20 Creatinine Cancelled 1.01 Est Cr Clr Drug Dosing Cancelled 37.7 eGFR Cancelled 53.54 BUN/Creatinine Ratio Cancelled 19.8 Glucose Cancelled 167 H Calcium Cancelled 8.6 Magnesium Cancelled 2.1 Total Bilirubin Cancelled 0.4 AST Cancelled 100 H ALT Cancelled 46 Alkaline Phosphatase Cancelled 73 Troponin I High Sens Cancelled 22.1 H Total Protein Cancelled 6.5 Albumin Cancelled 3.8 Globulin Cancelled 2.7 Albumin/Globulin Ratio Cancelled 1.4 TSH Cancelled 5.540 H Free T4 1.00 (0.61-1.60) ng/dl Urine Color Yellow Urine Appearance Cloudy A (Clear) Urine pH 5.5 (4.5-7.5) Ur Specific [place] 1.025 (1.000-1.030) Urine Protein 1+ H (Negative) Urine Glucose (UA) 1+ H (Negative) Urine Ketones Trace H (Negative) Urine Blood 2+ H (Negative) Urine Nitrite Negative (Negative) Urine Bilirubin Negative (Negative) Urine Urobilinogen Negative (Negative) Ur Leukocyte Esterase Negative (Negative) Urine WBC (Auto) 0-5 (0-5) /hpf Urine RBC (Auto) 0-2 (0-2) /hpf U Hyaline Cast (Auto) >20 H (0-2) /lpf U Epithel Cells (Auto) 3-5 H (0-2) /hpf Urine Bacteria (Auto) None Seen (None Seen) Urine Mucus Present A (None Prsent) Adenovirus (PCR) Not Detected (NotDetected) B. pertussis DNA (PCR) Not Detected (NotDetected) B.parapertussis DNA PCR Not Detected (NotDetected) C. pneumoniae DNA (PCR) Not Detected (NotDetected) Coronavirus OC43 (PCR) Not Detected (NotDetected) Coronavirus HKU1 (PCR) Not Detected (NotDetected) Coronavirus 229E (PCR) Not Detected (NotDetected) SARS-CoV-2 (PCR) DETECTED A (NotDetected) Coronavirus NL63 (PCR) Not Detected (NotDetected) Human Metapneumovir PCR Not Detected (NotDetected) Influenza Type A (PCR) Not Detected (NotDetected) Influenza Type B (PCR) Not Detected (NotDetected) M. pneumoniae (PCR) Not Detected (NotDetected) Parainfluenza 1 (PCR) Not Detected (NotDetected) Parainfluenza 2 (PCR) Not Detected (NotDetected) Parainfluenza 3 (PCR) Not Detected (NotDetected) Parainfluenza 4 (PCR) Not Detected (NotDetected) RSV (PCR) Not Detected (NotDetected) Entero/Rhino (PCR) Not Detected (NotDetected) Administered Medications Discontinued Medications Albuterol (Albut/Ipratrop 3mg/0.5mg Neb 3 Ml Vial) 3 ml NEB NOW STA; Protocol Stop: 04/18/24 11:17 Last Admin: 04/18/24 11:35 Dose: 3 ml Documented By: Dexamethasone Sodium Phosphate (DexamethasonePf 10 Mg/Ml Vial) 6 mg IV NOW ONE Stop: 04/18/24 13:04 Last Admin: 04/18/24 13:48 Dose: 6 mg Documented By: ALTHEA Sodium Chloride (Nss) 1,000 mls @ 999 mls/hr IV .Q1H1M ONE Stop: 04/18/24 12:16 Last Infusion: 04/18/24 12:36 Dose: Infused Documented By: Admin: 04/18/24 11:35 Dose: 999 mls/hr Documented By: Remdesivir 200 mg/ Sodium (Chloride) 250 mls @ 125 mls/hr IV ONE STA Stop: 04/18/24 16:09 Last Infusion: 04/18/24 16:36 Dose: Infused Documented By: Admin: 04/18/24 14:37 Dose: 125 mls/hr Documented By: Imaging Data Radiologist's Impression: Chest X-Ray 04/18/24 11:16 XR chest 1V portable CLINICAL HISTORY: weakness COMPARISON STUDY: Chest CT October 08, 2021. Chest radiograph October 09, 2022. FINDINGS: Low lung volumes are noted. A dual lead right subclavian pacer is in place. There is pulmonary vascular congestion. Bibasilar opacities favors atelectasis. There is no consolidation to suggest pneumonia. There is no pneumothorax or pleural effusion. Cardiomegaly is again noted. IMPRESSION: 1. Cardiomegaly with pulmonary vascular congestion. 2. Bibasilar opacities suggestive of atelectasis. 3. Low lung volumes. ACT 112: Negative or not required by law. Electronically signed by: Wiliam Bernabe M.D. 04/18/2024 11:33 AM Discharge Plan Visit Data Chief Complaint: Illness Stated Complaint: WEAKNESS ED Provider: Jose Simpson Discharge Problem: Acute hypoxemic respiratory failure due to COVID-19, Elevated troponin, Generalized weakness Patient Disposition: Admitted As Inpatient Discharge Instructions Interventions: ED Discharge Assessment Last Done: 04/18/24 16:31
--- NOTE | 2024-04-18 11:34 | XRay Report ---
XR chest 1V portable CLINICAL HISTORY: weakness COMPARISON STUDY: Chest CT October 08, 2021. Chest radiograph October 09, 2022. FINDINGS: Low lung volumes are noted. A dual lead right subclavian pacer is in place. There is pulmon nora vascular congestion. Bibasilar opacities favors atelectasis. There is no consolidation to suggest pneumonia. There is no pneumothorax or pleural effusion. Cardiomegaly is again noted. IMPRESSION: 1. Cardiomegaly with pulmonary vascular congestion. 2. Bibasilar opacities suggestive of atelectasis. 3. Low lung volumes. ACT 112: Negative or not required by law. Electronically signed by: Wiliam Bernabe M.D. 04/18/2024 11:33 AM
[2024-04-18] MEDS: SODIUM CHLORIDE 0.9% 1,000 ML IV ONE (11:35)
[2024-04-18] MEDS: ALBUT/IPRATROP 3MG/0.5MG NEB 3 ML VIAL NEB STA (11:35)
[2024-04-18 11:51] LABS: Basophils # (auto) 0.04 K/uL (0.00-0.20); Basophils % (auto) 0.6 %; Eosinophils # (auto) 0.15 K/uL (0.00-0.50); Eosinophils % (auto) 2.2 %; Hematocrit (blood only) 43.7 % (37.0-47.0); Hemoglobin 15.1 g/dl (12.0-16.0); Immature Granulocytes # (auto) 0.02 K/uL (0.01-0.20); Immature Granulocytes % (auto) 0.3 %; Lymphocytes # (auto) 1.06 K/uL (1.20-3.40); Lymphocytes % (auto) 15.8 %; Mean Corpuscular Hemoglobin 32.1 pg (25.0-34.0); Mean Corpuscular Hgb Conc 34.6 g/dL (32.0-36.0); Mean Platelet Volume 10.1 fL (9.4-12.4); Monocytes # (auto) 0.91 K/uL (0.11-0.59); Monocytes % (auto) 13.5 %; Neutrophils # (auto) 4.54 K/uL (1.40-6.50); Neutrophils % (auto) 67.6 %; Platelet Count 215 K/uL (130-400); RDW Coefficient of Variation 13.2 % (11.5-14.5); RDW Standard Deviation 44.5 fL (36.4-46.3); White Blood Count 6.72 K/ul (4.8-10.8)
[2024-04-18 12:31] LABS: Adenovirus PCR Not Detected (NotDetected); Coronavirus 229E PCR Not Detected (NotDetected); Coronavirus CoV-2 (COVID19)PCR DETECTED (NotDetected); Coronavirus HKU1 PCR Not Detected (NotDetected); Coronavirus NL63 PCR Not Detected (NotDetected); Coronavirus OC43PCR Not Detected (NotDetected); Human Metapneumovirus PCR Not Detected (NotDetected); Influenza A PCR Not Detected (NotDetected); Rhinovirus/Enterovirus PCR Not Detected (NotDetected)
[2024-04-18 12:32] LABS: Bordetella parapertussis PCR Not Detected (NotDetected); Bordetella pertussis PCR Not Detected (NotDetected); Chlamydia pneumoniae PCR Not Detected (NotDetected); Influenza B PCR Not Detected (NotDetected); Mycoplasma pneumoniae PCR Not Detected (NotDetected); Parainfluenza Virus 1 PCR Not Detected (NotDetected); Parainfluenza Virus 2 PCR Not Detected (NotDetected); Parainfluenza Virus 3 PCR Not Detected (NotDetected); Parainfluenza Virus 4 PCR Not Detected (NotDetected); Respiratory Syncytial VirusPCR Not Detected (NotDetected)
--- NOTE | 2024-04-18 13:15 | History & Physical Report ---
Date of Service April 18, 2024 Assessment & Plan (1) COVID: (2) Acute hypoxemic respiratory failure: Plan Luan is an 89-year-old female with underlying dementia, who presented on 04/18 for several days of acute illness/productive cough. COVID 19 positive on arrival. Coming in for increased oxygen demands. #COVID-19 COVID isolation precautions Supportive care Decadron 6 mg IV QAM Unclear timeline of patient's symptoms Given hypoxia, will place patient on IV remdesivir x 5 days Supportive care #Acute hypoxic respiratory failure Secondary to #1 SpO2 88% on RA on arrival Not on supplemental oxygen at baseline Supple oxygen as needed to maintain SpO2 >94% Titrate supplemental oxygen as needed Disposition: Admit to [facility] telemetry Full code Regular diet VTE PPx: SCDs; will defer chemical DVT PPx due to history of subdural hemorrhage (patient's grandson reports that she is unable to take blood thinners) History of Present Illness Chief Complaint: Illness, cough Primary Care Provider: Cass Anne DO Luna is an 89-year-old female with PMH of dementia, CVA, subdural hemorrhage (2021), TIA, urinary continence, and partial seizures. She presented on 04/18 for cough/congestion x 2 to 3 days. Patient is a poor historian at baseline due to her underlying dementia. Her (Luther) is at the bedside and provides history. He reports that she has had chest congestion for "months". She has also been coughing, but not getting much up. She does not use up on oxygen at home or CPAP at night. believes they both have gotten vaccinated for COVID in past, but have not had COVID boosters this year. He reports that they were both around sick contacts recently. Patient's grandson (Wiliam) helps to manage the patient's medicine at home. believes she took her regular morning medicine today. She has not been taking any additional medications for her symptoms. No prior history of DVT/PE. She denies smoking or tobacco use. Patient's SpO2 is 91% on 3L NC; vitals otherwise stable. ED course: Decadron 6 mg IV NSS 1000 mL IV Duoneb 3 mL Difficult to obtain ROS given patient's underlying dementia; however: Patient endorses coughing, sore neck, body aches, and headache. Patient denies fever, chills, night-sweats, chest pain, chest palpitations, SOB, abdominal pain, N/V/D, or redness or swelling in the legs. Phone call at 1430: Called patient's grandson (Wiliam) on the phone and provided update regarding labs/imaging/admission status. Jordan reports that the timeline of her symptoms has been over the past 2 days. In terms of cognitive baseline, jordan reports that while she does have good and bad days, the past 2 days have been particularly bad. Patient took all of her regular morning medications today, except (maybe) her Keppra (which she takes for history of partial seizures). Patient is not currently on blood thinners, and jordan reports that she cannot take blood thinners due to history of brain bleed. Jordan does report that both he and the patient's are medical power of prosecuting attorney's. The patient does not have a living will. Jordan reports that, given her cognitive baseline, she would not want to be hooked up to any change in mechanical ventilation under any circumstances. While he is requesting that the patient be listed as a DNR/DNI, he reports that he will speak to the patient's other medical power of prosecuting attorney () and confirm family wishes. Update at 1445: Called patient's grandson again. He confirms that he spoke on the phone with patient's , and they are in agreement that the patient should be a DNR/DNI. Allergies Allergy/AdvReac Type Severity Reaction Status Date / Time lisinopril Allergy Unknown UNKNOWN Verified 10/23/23 11:11 amoxicillin AdvReac Intermediate GI UPSET Verified 10/23/23 11:11 clavulanic acid AdvReac Intermediate GI UPSET Verified 10/23/23 11:11 donepezil AdvReac Intermediate NAUSEATED Verified 10/23/23 11:11 lamotrigine AdvReac Intermediate TIREDNESS Verified 10/23/23 11:11 tramadol AdvReac Intermediate GI UPSET Verified 10/23/23 11:11 hydrochlorothiazide AdvReac Unknown Unknown. Verified 10/23/23 11:11 triamterene AdvReac Unknown Unknown. Verified 10/23/23 11:11 Home Medications Medication Instructions Recorded Confirmed Type aripiprazole 2 mg tablet 2 mg PO DAILY 09/12/22 04/18/24 History amlodipine 10 mg tablet 10 mg PO DAILY #90 tabs 11/07/23 04/18/24 Rx duloxetine 60 mg capsule,delayed 60 mg PO BID 01/08/24 04/18/24 History release levothyroxine 125 mcg/mL oral 125 mcg PO DAILY #30 mL 01/08/24 04/18/24 Rx solution ramelteon 8 mg tablet 8 mg PO UD 01/08/24 04/18/24 History trazodone 50 mg tablet 50 mg PO UD 01/08/24 04/18/24 History cholecalciferol (vitamin D3) 50 2,000 unit PO DAILY #90 caps 01/17/24 04/18/24 Rx mcg (2,000 unit) capsule memantine 21 mg capsule 21 mg PO DAILY #90 ea 01/31/24 04/18/24 Rx sprinkle,extended release 24hr levetiracetam 100 mg/mL oral 500 mg (5 mL) PO BID #900 mL 02/05/24 04/18/24 Rx solution Past Med/Surg History Problem List (Updated 04/18/24 @ 14:48 by Pierre Ordonez, PhD, DO) Acute hypoxemic respiratory failure COVID Dementia History of subarachnoid hemorrhage (03/2021) Venous insufficiency (chronic) (peripheral) Cerebral amyloid angiopathy Numbness of right hand Depression with anxiety Urinary incontinence Partial seizures (Chronic) Hearing loss 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, traumatic Insomnia Epilepsy Dyslipidemia Cognitive disorder History of basal cell carcinoma (BCC) of skin Encephalomalacia Carotid atherosclerosis Vitamin D deficiency Osteoarthritis History of sick sinus syndrome s/p PPM GERD (gastroesophageal reflux disease) History of TIA (transient ischemic attack) (2013) History of CVA (cerebrovascular accident) (Acute 2013) History of subdural hemorrhage (2013) right temporal region, s/p craniotomy/evacuation; SDH 2nd trauma; 08/2013 Diverticulosis Hypertension Hypothyroidism, unspecified Medical History Acute CVA (cerebrovascular accident) Memory loss Surgical History History of right hip replacement (03/2019) H/O craniotomy r sided w/ removal of subdural hematoma, temporal intraparenchymal hemorrhage, 08/18/2013 Status post biventricular cardiac pacemaker insertion 1991, battery change 2007 & 07/2018 S/P tonsillectomy Hx of hysterectomy S/P cholecystectomy Status post Mohs surgery Family History Mother Hypertension Father Heart disease Myocardial infarction Brother Heart disease Family history of diabetes mellitus Myocardial infarction Sister Heart disease Hypertension Family history of diabetes mellitus Breast cancer Myocardial infarction Brother Myocardial infarction Sister Myocardial infarction Son , Sep 2020 COPD (chronic obstructive pulmonary disease) Brain bleed Denies family history of Ovarian cancer Prostate cancer Colorectal cancer Social History Smoking Status: Unknown if ever smoked Second Hand Exposure: Yes (FAMILY SMOKES); Do You Dip or Chew Tobacco: No; Hx Alcohol Use: No Hx Substance Use: No Preferred Language: Georgian Communication Ability: confused Visual Impairment: Limited Hearing Ability: Normal Double Spindle 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 ) during the past year weight has: remained stable Dental Care, Regularly: No Physical Activity Frequency: Other Physical Activity Frequency Comment: limited Seatbelt Use: always Sunscreen Use: Yes Assistive Devices: Walker Review of Systems Review of Systems: See HPI above Physical Exam Physical Exam: General: no acute distress; anxious; at bedside; non-toxic appearing; frail appearing; SpO2 91% on 3L NC HEENT: normocephalic, atraumatic; no scleral icterus; PERRLA w/ EOMs intact; vision and hearing grossly intact Neck: supple; no lymphadenopathy; trachea midline Skin: warm, dry without signs of tenting; no cyanosis; no rashes, bruising, lesions, or erythema noted CV: chest wall NTP; RR, tachycardic at 106 bpm; S1/S2 normal; no murmurs/rubs/gallops; pulses intact and symmetric at radial, DP, and PT Lungs: no acute respiratory distress; symmetrical chest wall expansion; clear breath sounds across all lung grissom w/o adventitious sounds; no wheezing ABD: Soft, NTP; BS present; no rebound/guarding; no distention MSK: Resting tremor in both hands; no edema noted in the LEs b/l, nonerythematous; 1/5 strength in lower extremities bilaterally Neuro: Patient is oriented to name, but not , month, location, or purpose in the hospital; normal mood and affect; fluent speech; no facial droop; no focal deficits; sensation intact and symmetric in lower EXTR bilaterally Results & Data Results & Data Vital Signs (Past 12 Hours) Vital Signs Temp Pulse Pulse Resp BP BP Pulse Ox 04/18/24 12:32 85 22 121/82 94 04/18/24 12:05 78 26 H 134/67 93 04/18/24 11:44 79 20 97 04/18/24 11:30 133/76 04/18/24 11:17 37.3 C 85 24 131/76 93 04/18/24 11:17 78 24 88 L 04/18/24 11:17 37.3 C 78 24 131/76 92 04/18/24 11:13 82 04/18/24 11:10 88 L O2 Del Method O2 Flow Rate 04/18/24 12:32 Nasal Cannula 2 04/18/24 12:05 Nasal Cannula 2 04/18/24 11:44 Nasal Cannula 2 04/18/24 11:30 04/18/24 11:17 Nasal Cannula 2 04/18/24 11:17 Room Air 04/18/24 11:17 Nasal Cannula 3 04/18/24 11:13 04/18/24 11:10 Room Air Laboratory Results Abnormal lab results 04/18/24 Range/Units 11:28 Lymph # (Auto) 1.06 L (1.20-3.40) K/uL Shelby # (Auto) 0.91 H (0.11-0.59) K/uL SARS-CoV-2 (PCR) DETECTED A (NotDetected) Diagnostic Findings Chest X-Ray 04/18/24 11:16 XR chest 1V portable CLINICAL HISTORY: weakness COMPARISON STUDY: Chest CT October 08, 2021. Chest radiograph October 09, 2022. FINDINGS: Low lung volumes are noted. A dual lead right subclavian pacer is in place. There is pulmonary vascular congestion. Bibasilar opacities favors atelectasis. There is no consolidation to suggest pneumonia. There is no pneumothorax or pleural effusion. Cardiomegaly is again noted. IMPRESSION: 1. Cardiomegaly with pulmonary vascular congestion. 2. Bibasilar opacities suggestive of atelectasis. 3. Low lung volumes. ACT 112: Negative or not required by law. Electronically signed by: Wiliam Bernabe M.D. 04/18/2024 11:33 AM ECG Additional Comments: ECG revealed NSR at 83 bpm; QTc 425 Code Status & VTE Plan Code Status DNR/DNI VTE Prophylaxis Plan VTE Prophylaxis will be ordered: Yes Supervising Physician Co-Signing Physician Notes I have personally seen, evaluated and examined the patient. I have also personally discussed the management of the patient with the resident physician/PATY and I agree with the exam findings documented in the history and physical examination and the documented assessment and plan unless otherwise stated below. Brief Exam: In general 89-year-old female she is alert and oriented to person not so much to place and time she does have moderate to advancing dementia. She has no specific complaints. HEENT: Normocephalic atraumatic. Heart: Regular I do not appreciate a andrez murmur or rub. Lungs: Diminished due to poor inspiratory effort fairly clear. Abdomen: Protuberant soft and nontender with positive bowel sounds Extremities: Intact with trace peripheral edema. Neurologically: Appears to be at her baseline according to family again with advancing dementia. Assessment/plan: As described above. Dexamethasone, remdesivir, supportive care oxygen therapy excetra. Isolation as appropriate. please refer to orders for further planning. PG Care Time/CCT Total # of Minutes Spent Total Time Spent with Patient: Total time spent is greater than 50% in coordination of care (as documented) at patient's floor/unit and/or counseling patient: [place] [address] INT INP/OBS CARE 3/75MIN Patient Type Established Medical Decision Making High Complexity Diagnoses COVID U07.1 Acute hypoxemic respiratory failure J96.01
[2024-04-18 13:34] LABS: Albumin Globulin Ratio 1.4 (0.9-2); Albumin Level 3.8 gm/dl (3.4-5.0); BUN Creatinine Ratio 19.8 (10-20); Bilirubin,Total 0.4 mg/dl (0.2-1.0); Calcium 8.6 mg/dl (8.6-10.3); Creatinine Clr Calc Pharmacy 37.7 ml/min; Globulin 2.7 gm/dl (2.5-4.0); Magnesium 2.1 mg/dl (1.7-2.4); Potassium 3.7 mmol/L (3.5-5.1); Total Protein 6.5 gm/dl (6.0-8.3)
[2024-04-18 13:39] LABS: Troponin I High Sensitivity 22.1 pg/ml (0-14)
[2024-04-18 13:43] LABS: Appearance Urine Cloudy (Clear); Bacteria Urine Automated None Seen (None Seen); Bilirubin Urine Negative (Negative); Blood Urine 2+ (Negative); Cast Urine Automated >20 /lpf (0-2); Color Urine Yellow; Glucose Urine UA 1+ (Negative); Ketones Urine Trace (Negative); Leukocyte Esterase Urine Negative (Negative); Mucus Urine Present (None Prsent); Nitrite Urine Negative (Negative); Protein Urine 1+ (Negative); RBC Urine Automated 0-2 /hpf (0-2); Specific Gravity Urine 1.025 (1.000-1.030); Urobilinogen Urine Negative (Negative); WBC Urine Automated 0-5 /hpf (0-5); pH Urine 5.5 (4.5-7.5)
[2024-04-18] MEDS: dexAMETHasone**PF** 10 MG/ML VIAL IV ONE (13:48)
[2024-04-18 13:49] LABS: Thyroid Stimulating Hormone 5.54 uIu/ml (0.300-4.500)
[2024-04-18] MEDS: REMDESIVIR 200 MG in SODIUM CHLORIDE 0.9% 210 ML IV STA (14:37)
--- NOTE | 2024-04-18 19:28 | Electrocardiogram Report ---
Test Reason : Blood Pressure : */* mmHG Vent. Rate : 83 BPM Atrial Rate : 83 BPM P-R Int : 202 ms QRS Dur : 60 ms QT Int : 362 ms P-R-T Axes : 46 -1 53 degrees QTcB Int : 425 ms Normal sinus rhythm Low voltage QRS Septal infarct (cited on or before 30-Sep-2020) Inferior infarct (cited on or before 22-Jan-2021) Abnormal ECG When compared with ECG of 09-Oct-2022 17:44, No significant change Confirmed by Srinivasa Rodriguez ([id number]) on 04/18/2024 7:27:58 PM Referred By: REFERRED SELF Confirmed By: Srinivasa Rodriguez
[2024-04-18] MEDS: ACETAMINOPHEN 325 MG TAB PO PRN (21:14)
[2024-04-18] MEDS: MELATONIN 3 MG TAB PO PRN (21:14)
[2024-04-18] MEDS: DULoxetine HCL 60 MG CAP PO SCH (21:14)
[2024-04-19 07:06] LABS: Basophils # (auto) 0.01 K/uL (0.00-0.20); Basophils % (auto) 0.2 %; Hematocrit (blood only) 41.6 % (37.0-47.0); Hemoglobin 14.1 g/dl (12.0-16.0); Immature Granulocytes # (auto) 0.01 K/uL (0.01-0.20); Immature Granulocytes % (auto) 0.2 %; Lymphocytes # (auto) 1.22 K/uL (1.20-3.40); Lymphocytes % (auto) 25.8 %; Mean Corpuscular Hemoglobin 31.4 pg (25.0-34.0); Mean Corpuscular Hgb Conc 33.9 g/dL (32.0-36.0); Mean Corpuscular Volume 92.7 fL (80.0-100.0); Mean Platelet Volume 8.9 fL (9.4-12.4); Monocytes # (auto) 0.65 K/uL (0.11-0.59); Monocytes % (auto) 13.7 %; Neutrophils # (auto) 2.84 K/uL (1.40-6.50); Neutrophils % (auto) 60.1 %; Platelet Count 203 K/uL (130-400); RDW Coefficient of Variation 12.7 % (11.5-14.5); RDW Standard Deviation 43.3 fL (36.4-46.3); Red Blood Count 4.49 M/uL (4.20-5.40); White Blood Count 4.73 K/ul (4.8-10.8)
[2024-04-19 07:24] LABS: Albumin Globulin Ratio 1.3 (0.9-2); Albumin Level 3.7 gm/dl (3.4-5.0); BUN Creatinine Ratio 23.4 (10-20); Bilirubin,Total 0.4 mg/dl (0.2-1.0); Calcium 8.5 mg/dl (8.6-10.3); Chol HDL Ratio 4.5 (0-5); Creatinine Clr Calc Pharmacy 48.1 ml/min; Globulin 2.8 gm/dl (2.5-4.0); Magnesium 2.1 mg/dl (1.7-2.4); Potassium 3.8 mmol/L (3.5-5.1); Total Protein 6.5 gm/dl (6.0-8.3)
--- NOTE | 2024-04-19 07:34 | Hospitalist Progress Note ---
Date of Service April 19, 2024 Assessment & Plan (1) COVID: Plan: No cough throughout the day today. Oxygen now weaned to 1 L/min by nasal cannula No significant bronchospasms on examination. If patient continues to improve, can discontinue Decadron tomorrow Continue supportive respiratory care (2) Depression with anxiety: Plan: Unable to evaluate as patient is cognitively unable to provide history Continue duloxetine 60 mg p.o. twice daily (3) History of sick sinus syndrome: Plan: Telemetry reviewed. Patient is currently paced. Continue to monitor (4) Hypertension: Plan: Continue amlodipine (5) Hypothyroidism, unspecified: Plan: Continue levothyroxine (6) Acute hypoxemic respiratory failure due to COVID-19: (7) Dementia: Plan: Continue Abilify (aripiprazole) and Nemenda (memantine) (8) Partial seizures: Plan: Continue Keppra 500 mg p.o. twice daily Unknown when last seizure was -checking with family Consider seizure precautions of seizure within the last 2 years (9) Insomnia: Plan: Continue ramelteon trazodone [facility] Regular diet VTE PPx: SCDs; will defer chemical DVT PPx due to history of subdural hemorrhage (patient's grandson reports that she is unable to take blood thinners) Admission and Anticipated Discharge Date Admission Date: April 18, 2024 Supervising Physician Co-Signing Physician Notes Attending Attestation - Chart reviewed, care plan d/w GORAN Pollock. I agree w/ the reyez components of his documentation. Magdaleno Hayden MD Subjective Attending: Dr. Hayden The patient is an 89-year-old female with underlying dementia, who presented on 04/18 for several days of acute illness/productive cough. COVID 19 positive on arrival. Coming in for increased oxygen demands. Currently 94% SpO2 on 3 L/min of supplemental oxygen via nasal cannula. Chest x-ray evaluation revealed cardiomegaly with pulmonary vascular congestion. There is no evidence of consolidation or nephrolithiasis suggest pneumonia. Viral panel negative with the exception of SARS-CoV-2. Daryl was 88%. Patient is doing relatively well. She does have outbreaks where she persistently screenings help me help me. On examination. She states that she has pain there is no focal pain identified. Vital signs are normal. No elevation of heart rate or blood pressure. He is grandson indicates that this is common for her. She is unable to give me any information other than her first name as she cannot asking for "Pap". He currently is on 2 L of supplemental oxygen via nasal cannula and is comfortable. She is saturating well at 95%. Respiratory rate is 18. She is afebrile Patient is unable to provide appropriate review of systems and has no focal complaints. Review of Systems 2 Review of Systems: Unobtainable due to cognitive status Physical Exam 2 Physical Exam: GENERAL : No acute distress. Pleasant at the time of my examination EYES: No icterus, gaze conjugate NOSE: No evidence of epistaxis MOUTH: No lesions or candidiasis NECK: Supple LUNGS: Generally CTA B/L, rales or rhonchi. Very faint bronchospasm bibasilar region. HEART: Regular, rate controlled ABDOMEN: Soft, NT, ND, BS Present EXTREMITIES: No LE edema, pedal pulses intact NEURO: Awake and alert. Can only oriented to first name. Follows simple commands. Pleasant. Results & Data Results & Data Vital Signs (Past 12 Hours) Vital Signs Temp Pulse Pulse Resp BP Pulse Ox O2 Del Method 04/19/24 07:30 Nasal Cannula 04/19/24 07:28 36.6 C 65 18 149/72 H 94 Nasal Cannula 04/19/24 07:17 76 04/19/24 03:55 36.5 C 71 18 132/76 93 Nasal Cannula 04/18/24 23:14 36.5 C 80 18 133/70 96 Nasal Cannula 04/18/24 22:32 102 H 04/18/24 22:03 Nasal Cannula 04/18/24 20:40 36.6 C 93 H 18 128/62 96 Nasal Cannula 04/18/24 19:54 36.6 C 85 20 135/75 95 Nasal Cannula O2 Flow Rate 04/19/24 07:30 3 04/19/24 07:28 3 04/19/24 07:17 04/19/24 03:55 04/18/24 23:14 04/18/24 22:32 04/18/24 22:03 3 04/18/24 20:40 2 04/18/24 19:54 Laboratory Results 04/19/24 06:22 04/19/24 06:22 Diagnostic Findings Chest X-Ray 04/18/24 11:16 XR chest 1V portable CLINICAL HISTORY: weakness COMPARISON STUDY: Chest CT October 08, 2021. Chest radiograph October 09, 2022. FINDINGS: Low lung volumes are noted. A dual lead right subclavian pacer is in place. There is pulmonary vascular congestion. Bibasilar opacities favors atelectasis. There is no consolidation to suggest pneumonia. There is no pneumothorax or pleural effusion. Cardiomegaly is again noted. IMPRESSION: 1. Cardiomegaly with pulmonary vascular congestion. 2. Bibasilar opacities suggestive of atelectasis. 3. Low lung volumes. ACT 112: Negative or not required by law. Electronically signed by: Wiliam Bernabe M.D. 04/18/2024 11:33 AM PG Care Time/CCT Total # of Minutes Spent Total Time Spent with Patient: Total time spent is greater than 50% in coordination of care (as documented) at patient's floor/unit and/or counseling patient: 30 minutes over 2 visits plus chart prep and documentation Coding Level of Care Code 28615 SUB INP/OBS CARE 2/35MIN Diagnoses COVID U07.1 Depression with anxiety F41.8 History of sick sinus syndrome Z86.79 Hypertension I10 Hypertension type: essential hypertension Acquired hypothyroidism E03.9 Hypothyroidism type: acquired Acute hypoxemic respiratory failure due to COVID-19 U07.1; J96.01 Severe dementia, unspecified dementia type, unspecified whether behavioral, psychotic, or mood disturbance or anxiety F03.C0 Dementia behavioral or psychological symptom: unspecified whether behavioral, psychotic, or mood disturbance or anxiety Dementia severity: severe Dementia type: unspecified type Partial seizures R56.9 Insomnia, unspecified type G47.00 Insomnia type: unspecified Time Spent (min) 40 (4) Hypertension Hypertension type: essential hypertension Qualified Code(s): I10 - Essential (primary) hypertension (5) Hypothyroidism, unspecified Hypothyroidism type: acquired Qualified Code(s): E03.9 - Hypothyroidism, unspecified (7) Dementia Dementia behavioral or psychological symptom: unspecified whether behavioral, psychotic, or mood disturbance or anxiety Dementia severity: severe Dementia type: unspecified type Qualified Code(s): F03.C0 - Unspecified dementia, severe, without behavioral disturbance, psychotic disturbance, mood disturbance, and anxiety (9) Insomnia Insomnia type: unspecified Qualified Code(s): G47.00 - Insomnia, unspecified
[2024-04-19 07:58] LABS: Estimated Average Glucose 151 mg/dl; Hemoglobin A1C 6.9 % (4.5-5.6)
[2024-04-19] MEDS: LEVOTHYROXINE SODIUM 125 MCG TABLET PO SCH (08:22)
[2024-04-19] MEDS: amLODIPine BESYLATE 5 MG TAB PO SCH (08:27)
[2024-04-19] MEDS: dexAMETHasone 6 MG in SYRINGE 0 ML IV SCH (08:27)
[2024-04-19] MEDS: ARIPIprazole 1 MG/ML ORAL SOLN 150 ML BTL PO SCH (08:27)
[2024-04-19] MEDS ORDERED: dexAMETHasone**PF** 10 MG/ML VIAL IV SCH (09:00)
[2024-04-19] MEDS: REMDESIVIR 100 MG in SODIUM CHLORIDE 0.9% 230 ML IV SCH (14:27)
[2024-04-19] MEDS: traZODone HCL 50 MG TAB PO SCH (20:58)
--- NOTE | 2024-04-20 07:36 | Hospitalist Progress Note ---
Date of Service April 20, 2024 Assessment & Plan (1) COVID: Plan: No cough throughout the day today. Oxygen now weaned off. SpO2 at 97% room air Continue supportive respiratory care (2) Depression with anxiety: Plan: Unable to evaluate as patient is cognitively unable to provide history Continue duloxetine 60 mg p.o. twice daily (3) History of sick sinus syndrome: Plan: Telemetry reviewed. Patient is currently paced. Continue to monitor (4) Hypertension: Plan: Continue amlodipine BP stable (5) Hypothyroidism, unspecified: Plan: Continue levothyroxine (6) Acute hypoxemic respiratory failure due to COVID-19: Plan: Resolved. Continue to monitor (7) Dementia: Plan: Continue Abilify (aripiprazole) and Nemenda (memantine) (8) Partial seizures: Plan: Continue Keppra 500 mg p.o. twice daily Per family, last seizure was several years ago (9) Insomnia: Plan: Continue ramelteon trazodone [facility] Regular diet VTE PPx: SCDs; will defer chemical DVT PPx due to history of subdural hemorrhage (patient's grandson reports that she is unable to tolerate blood thinners) Family requests placement. VCase management following Admission and Anticipated Discharge Date Admission Date: April 18, 2024 Supervising Physician Co-Signing Physician Notes Attending Attestation - Chart reviewed, care plan d/w GORAN Pollock. I agree w/ the reyez components of his documentation. Magdaleno Hayden MD Subjective Attending: Dr. Hayden The patient is an 89-year-old female with underlying dementia, who presented on 04/18 for several days of acute illness/productive cough. COVID 19 positive on arrival. Coming in for increased oxygen demands. Currently 94% SpO2 on 3 L/min of supplemental oxygen via nasal cannula. Chest x-ray evaluation revealed cardiomegaly with pulmonary vascular congestion. There is no evidence of consolidation or nephrolithiasis suggest pneumonia. Viral panel negative with the exception of SARS-CoV-2. Daryl was 88%. Patient has been stable. Awaiting placement. Patient is unable to provide appropriate review of systems and has no focal complaints. Review of Systems 2 Review of Systems: Unobtainable due to cognitive status Physical Exam 2 Physical Exam: GENERAL : No acute distress EYES: No icterus, gaze conjugate NOSE: No evidence of epistaxis MOUTH: No lesions or candidiasis NECK: Supple LUNGS: CTA B/L, no wheezes, rales or rhonchi HEART: Regular, rate controlled ABDOMEN: Soft, NT, ND, BS Present EXTREMITIES: No LE edema, pedal pulses intact NEURO: Ongoing dementia. Frequent bouts of screaming. Grandson states that this is typical. Follows simple commands. Results & Data Results & Data Vital Signs (Past 12 Hours) Vital Signs Temp Pulse Pulse Resp BP Pulse Ox O2 Del Method 04/20/24 07:26 Nasal Cannula 04/20/24 07:25 36.2 C L 72 16 138/77 95 Nasal Cannula 04/20/24 07:04 68 04/20/24 03:26 36.5 C 62 20 111/67 90 Nasal Cannula 04/19/24 22:04 79 04/19/24 21:11 Nasal Cannula 04/19/24 19:52 36.5 C 78 20 149/75 H 94 Nasal Cannula O2 Flow Rate 04/20/24 07:26 1 04/20/24 07:25 1 04/20/24 07:04 04/20/24 03:26 1 04/19/24 22:04 04/19/24 21:11 2 04/19/24 19:52 1 Laboratory Results 04/19/24 06:22 04/19/24 06:22 PG Care Time/CCT Total # of Minutes Spent Total Time Spent with Patient: Total time spent is greater than 50% in coordination of care (as documented) at patient's floor/unit and/or counseling patient: Coding Level of Care Code 17768 SUB INP/OBS CARE 2/35MIN Diagnoses COVID U07.1 Depression with anxiety F41.8 History of sick sinus syndrome Z86.79 Hypertension I10 Hypertension type: essential hypertension Acquired hypothyroidism E03.9 Hypothyroidism type: acquired Acute hypoxemic respiratory failure due to COVID-19 U07.1; J96.01 Severe dementia, unspecified dementia type, unspecified whether behavioral, psychotic, or mood disturbance or anxiety F03.C0 Dementia behavioral or psychological symptom: unspecified whether behavioral, psychotic, or mood disturbance or anxiety Dementia severity: severe Dementia type: unspecified type Partial seizures R56.9 Insomnia, unspecified type G47.00 Insomnia type: unspecified (4) Hypertension Hypertension type: essential hypertension Qualified Code(s): I10 - Essential (primary) hypertension (5) Hypothyroidism, unspecified Hypothyroidism type: acquired Qualified Code(s): E03.9 - Hypothyroidism, unspecified (7) Dementia Dementia behavioral or psychological symptom: unspecified whether behavioral, psychotic, or mood disturbance or anxiety Dementia severity: severe Dementia type: unspecified type Qualified Code(s): F03.C0 - Unspecified dementia, severe, without behavioral disturbance, psychotic disturbance, mood disturbance, and anxiety (9) Insomnia Insomnia type: unspecified Qualified Code(s): G47.00 - Insomnia, unspecified
[2024-04-21 07:46] LABS: Hematocrit (blood only) 45.7 % (37.0-47.0); Hemoglobin 15.4 g/dl (12.0-16.0); Mean Corpuscular Hemoglobin 31.4 pg (25.0-34.0); Mean Corpuscular Hgb Conc 33.7 g/dL (32.0-36.0); Mean Corpuscular Volume 93.1 fL (80.0-100.0); Mean Platelet Volume 9.4 fL (9.4-12.4); Platelet Count 221 K/uL (130-400); RDW Coefficient of Variation 12.5 % (11.5-14.5); RDW Standard Deviation 42.9 fL (36.4-46.3); Red Blood Count 4.91 M/uL (4.20-5.40); White Blood Count 4.91 K/ul (4.8-10.8)
[2024-04-21 07:47] LABS: Basophils # (auto) 0.01 K/uL (0.00-0.20); Basophils % (auto) 0.2 %; Immature Granulocytes # (auto) 0.02 K/uL (0.01-0.20); Immature Granulocytes % (auto) 0.4 %; Lymphocytes # (auto) 1.71 K/uL (1.20-3.40); Lymphocytes % (auto) 34.8 %; Monocytes # (auto) 0.56 K/uL (0.11-0.59); Monocytes % (auto) 11.4 %; Neutrophils # (auto) 2.61 K/uL (1.40-6.50); Neutrophils % (auto) 53.2 %
[2024-04-21 08:03] LABS: Anion Gap 5 (3-11); BUN Creatinine Ratio 30.1 (10-20); Blood Urea Nitrogen 22 mg/dl (6-23); Carbon Dioxide 31 mmol/L (21-32); Chloride 106 mmol/L (98-107); Creatinine Clr Calc Pharmacy 50.6 ml/min; Glucose 118 mg/dl (70-99(Fasting)); Sodium 142 mmol/L (136-145)
--- NOTE | 2024-04-21 17:36 | Hospitalist Progress Note ---
Date of Service April 21, 2024 Assessment & Plan (1) COVID: Plan: Had had mild hypoxia at ER presentation followed by NC O2 requirement thereafter but O2 weaned off and stable in room air day #4 Remdesivir; will complete 5 days currently on IV dexamethasone - given her improvement will stop the dex - could be making her mental status worse cont airborne precautions check AST/ALT in am due to Remdesivir usage (2) Depression with anxiety: Plan: Continue duloxetine 60 mg p.o. twice daily (3) History of sick sinus syndrome: Plan: Pacing on tele no issues (4) Hypertension: Plan: Continue amlodipine BPs acceptable with some highs likely from her agitation (5) Hypothyroidism, unspecified: Plan: Continue levothyroxine TSH 5.5 which is improved from last fall when it was 18 will not make any changes at this time (6) Acute hypoxemic respiratory failure due to COVID-19: Plan: Resolved, NC O2 requirement is resolved stop IV dexamethasone (7) Dementia: Plan: Continue Abilify and Nemenda Mild agitation but redirectable and no concerns for safety from staff (8) Partial seizures: Plan: Continue Keppra 500 mg p.o. twice daily Per family, last seizure was several years ago (9) Insomnia: Plan: Continue trazodone Plan deferring on chemical DVT PPx due to history of subdural hemorrhage (patient's grandson told prior provider that she is unable to tolerate blood thinners) disposition - rehab I updated the pt's by phone this evening Admission and Anticipated Discharge Date Admission Date: April 18, 2024 Subjective per staff the patient yells and cries throughout the day when you arrive to her bedside she immediately stops and has a conversation she is confused during the conversation due to her dementia she voices she misses her denies any specific complaints of pain in any location staff report no specific concerns Review of Systems Review of Systems: Unobtainable due to cognitive status Physical Exam Physical Exam: gen - NAD, resting comfortably in bed mouth - oral mucosa is dry neck - no JVD heart - RRR, s1 s2, no murmur lungs - CTA b/l, no obvious rales or wheeze heard abd - soft NT ND BS+ ext - no edema, pulses 2+ b/l neuro - no gross deficits psych - oriented to person only Results & Data Results & Data Vital Signs (Past 12 Hours) Vital Signs Temp Pulse Pulse Resp BP Pulse Ox O2 Del Method 04/21/24 14:31 36.6 C 150/77 H 04/21/24 14:29 82 16 167/92 H 93 Room Air 04/21/24 11:28 36.5 C 70 16 145/75 H 95 Room Air 04/21/24 07:23 59 L Laboratory Results Laboratory Results - last 24 hr 04/21/24 04/21/24 06:21 08:26 WBC 4.91 RBC 4.91 Hgb 15.4 Hct 45.7 MCV 93.1 MCH 31.4 MCHC 33.7 RDW Std Deviation 42.9 RDW Coeff of Carmen 12.5 Plt Count 221 MPV 9.4 Immature Gran % (Auto) 0.4 Neut % (Auto) 53.2 Lymph % (Auto) 34.8 [place] % (Auto) 11.4 Eos % (Auto) 0.0 Baso % (Auto) 0.2 Neut # (Auto) 2.61 Lymph # (Auto) 1.71 [place] # (Auto) 0.56 Eos # (Auto) 0.00 Baso # (Auto) 0.01 Immature Gran # (Auto) 0.02 Sodium 142 Potassium TNP 3.5 Chloride 106 Carbon Dioxide 31 Anion Gap 5 BUN 22 Creatinine 0.73 Est Cr Clr Drug Dosing 50.6 eGFR 79.05 BUN/Creatinine Ratio 30.1 H Glucose 118 H Calcium 9.0 PG Care Time/CCT Total # of Minutes Spent Total Time Spent with Patient: Total time spent is greater than 50% in coordination of care (as documented) at patient's floor/unit and/or counseling patient: Coding Level of Care Code 75740 SUB INP/OBS CARE 2/35MIN Diagnoses COVID U07.1 Depression with anxiety F41.8 History of sick sinus syndrome Z86.79 Hypertension I10 Hypertension type: essential hypertension Acquired hypothyroidism E03.9 Hypothyroidism type: acquired Acute hypoxemic respiratory failure due to COVID-19 U07.1; J96.01 Severe dementia, unspecified dementia type, unspecified whether behavioral, psy chotic, or mood disturbance or anxiety F03.C0 Dementia behavioral or psychological symptom: unspecified whether behavioral, psychotic, or mood disturbance or anxiety Dementia severity: severe Dementia type: unspecified type Partial seizures R56.9 Insomnia, unspecified type G47.00 Insomnia type: unspecified (4) Hypertension Hypertension type: essential hypertension Qualified Code(s): I10 - Essential (primary) hypertension (5) Hypothyroidism, unspecified Hypothyroidism type: acquired Qualified Code(s): E03.9 - Hypothyroidism, unspecified (7) Dementia Dementia behavioral or psychological symptom: unspecified whether behavioral, psychotic, or mood disturbance or anxiety Dementia severity: severe Dementia type: unspecified type Qualified Code(s): F03.C0 - Unspecified dementia, severe, without behavioral disturbance, psychotic disturbance, mood disturbance, and anxiety (9) Insomnia Insomnia type: unspecified Qualified Code(s): G47.00 - Insomnia, unspecified
[2024-04-22 06:28] LABS: Alanine Aminotransferase 53 U/L (7-52); Aspartate Aminotransferase 52 U/L (13-39)
[2024-04-22] MEDS: MEMANTINE 21 MG EXT SCH (07:41)
--- NOTE | 2024-04-22 17:58 | Hospitalist Progress Note ---
Date of Service April 22, 2024 Assessment & Plan (1) COVID: Plan: Had had mild hypoxia at ER presentation followed by NC O2 requirement thereafter but O2 weaned off and stable in room air for 2+ days now day #5 Remdesivir today which will complete her 5-day course previously on IV dexamethasone - given her improvement and lack of infiltrates on chest x-ray I stopped her dexamethasone yesterday (concern it was contributing further to her anxiety, mental status, etc) cont airborne precautions transaminitis is just about resolved today - this was likely due to COVID itself rather than Remdesivir (2) Depression with anxiety: Plan: Continue duloxetine 60 mg p.o. twice daily (3) History of sick sinus syndrome: Plan: Pacing on tele, or NSR seen no other dysrhythmia seen no issues can d/c telemetry (4) Hypertension: Plan: Continue amlodipine BPs acceptable with some highs likely from her agitation (5) Hypothyroidism, unspecified: Plan: Continue levothyroxine TSH 5.5 which is improved from last fall when it was 18 will not make any changes at this time recommend another TSH as outpatient in 4-6 weeks (6) Acute hypoxemic respiratory failure due to COVID-19: Plan: NC O2 requirement is resolved stopped IV dexamethasone remains stable in room air (7) Dementia: Plan: Continue Abilify and Nemenda Mild agitation but redirectable and no concerns for safety from staff B12 level wnl B1 level sent while waiting on level place on thiamine 200mg daily (8) Partial seizures: Plan: Continue Keppra 500 mg p.o. twice daily Per family, last seizure was several years ago (9) Insomnia: Plan: Continue trazodone (10) Transaminitis: Plan: 2nd to COVID infection just about resolved Plan chemical DVT PPx deferred due to history of subdural hemorrhage (patient's grandson told prior provider that she is unable to tolerate blood thinners) disposition - [facility]; they will have bed for her on 04/23/24 I updated the pt's by phone 04/21 grandson updated at bedside 04/22 Admission and Anticipated Discharge Date Admission Date: April 18, 2024 Subjective no events overnight per staff when patient is alone in the room she is incessantly calling out "help me help me" - sometimes also calling out for her - but as soon as you enter the room she stops such and she denies complaints during my visit her grandson was present at bedside he felt that she looked better he was pleased to hear that she was able to stand & pivot this is an improvement as she couldn't stand at home prior to coming to the hospital he confirms the plan is d/c to [facility] for rehab patient unable to provide any meaningful history/ROS as like on previous visits she is anxious, and asks "when can I get out of here?" tele stable overnight Review of Systems Review of Systems: Unobtainable due to cognitive status Physical Exam Physical Exam: gen - NAD, resting comfortably in the chair neck - no JVD heart - RRR, s1 s2, no murmur lungs - CTA b/l, no rales/wheeze abd - soft NT ND BS+ ext - no edema, pulses 2+ b/l psych - oriented to person only; she did know the name of her grandson Results & Data Results & Data Vital Signs (Past 12 Hours) Vital Signs Temp Pulse Pulse Resp BP Pulse Ox Pulse Ox 04/22/24 16:00 95 04/22/24 15:13 36.3 C L 73 16 123/71 96 04/22/24 14:33 78 04/22/24 11:49 36.4 C L 75 16 125/76 95 04/22/24 07:30 04/22/24 07:29 36.4 C L 72 20 162/76 H 93 04/22/24 07:00 85 O2 Del Method O2 Del Method 04/22/24 16:00 Room Air 04/22/24 15:13 Room Air 04/22/24 14:33 04/22/24 11:49 Room Air 04/22/24 07:30 Room Air 04/22/24 07:29 Room Air 04/22/24 07:00 Laboratory Results Laboratory Results - last 24 hr 04/22/24 05:40 AST 52 H ALT 53 H Whole Bld Vitamin B1 Pending Vitamin B12 630 PG Care Time/CCT Total # of Minutes Spent Total Time Spent with Patient: Total time spent is greater than 50% in coordination of care (as documented) at patient's floor/unit and/or counseling patient: Coding Level of Care Code 35732 SUB INP/OBS CARE 2/35MIN Diagnoses COVID U07.1 Depression with anxiety F41.8 History of sick sinus syndrome Z86.79 Hypertension I10 Hypertension type: essential hypertension Acquired hypothyroidism E03.9 Hypothyroidism type: acquired Acute hypoxemic respiratory failure due to COVID-19 U07.1; J96.01 Severe dementia, unspecified dementia type, unspecified whether behavioral, psychotic, or mood disturbance or anxiety F03.C0 Dementia behavioral or psychological symptom: unspecified whether behavioral, psychotic, or mood disturbance or anxiety Dementia severity: severe Dementia type: unspecified type Partial seizures R56.9 Insomnia, unspecified type G47.00 Insomnia type: unspecified Transaminitis R74.01 (4) Hypertension Hypertension type: essential hypertension Qualified Code(s): I10 - Essential (primary) hypertension (5) Hypothyroidism, unspecified Hypothyroidism type: acquired Qualified Code(s): E03.9 - Hypothyroidism, unspecified (7) Dementia Dementia behavioral or psychological symptom: unspecified whether behavioral, psychotic, or mood disturbance or anxiety Dementia severity: severe Dementia type: unspecified type Qualified Code(s): F03.C0 - Unspecified dementia, severe, without behavioral disturbance, psychotic disturbance, mood disturbance, and anxiety (9) Insomnia Insomnia type: unspecified Qualified Code(s): G47.00 - Insomnia, unspecified
[2024-04-22] MEDS: RAMELTEON 8 MG TAB PO SCH (19:54)
[2024-04-22] MEDS: THIAMINE HCL 100 MG TAB PO SCH (19:59)
[2024-04-23 10:28] VITALS: RESP 18; TEMP 98.1; O2SAT 93
--- NOTE | 2024-04-23 10:52 | Discharge Summary ---
Discharge Summary Date of Service April 23, 2024 Principal Dx & Hospital Course #1 = Principal Diagnosis (1) COVID: (2) Depression with anxiety: (3) History of sick sinus syndrome: (4) Hypertension: (5) Hypothyroidism, unspecified: (6) Acute hypoxemic respiratory failure due to COVID-19: (7) Dementia: (8) Partial seizures: (9) Insomnia: (10) Transaminitis: Plan Luna Aguilar is an 89-year-old female admitted to [facility] from April 18 - 2024 due to worsening mental state, weakness, cough and low oxygen saturations. She was diagnosed with COVID-19 pneumonia and treated with remdesivir (completed 5 day course) and three days of dexamethasone. She is now stable on room air therefore dexamethasone has been discontinued. She is medically fit for discharge however requiring further physical rehabilitation therefore transferred to [facility] to enable this. Of note her right calf was noted to be larger than her left side however ultrasound venous Doppler was negative for DVT. Notes For Next Care Provider Medication Changes From Visit No changes Admission HPI Per Admitting Provider Luna is an 89-year-old female with PMH of dementia, CVA, subdural hemorrhage (2021), TIA, urinary continence, and partial seizures. She presented on 04/18 for cough/congestion x 2 to 3 days. Patient is a poor historian at baseline due to her underlying dementia. Her (Luther) is at the bedside and provides history. He reports that she has had chest congestion for "months". She has also been coughing, but not getting much up. She does not use up on oxygen at home or CPAP at night. believes they both have gotten vaccinated for COVID in past, but have not had COVID boosters this year. He reports that they were both around sick contacts recently. Patient's grandson (Wiliam) helps to manage the patient's medicine at home. believes she took her regular morning medicine today. She has not been taking any additional medications for her symptoms. No prior history of DVT/PE. She denies smoking or tobacco use. Patient's SpO2 is 91% on 3L NC; vitals otherwise stable. ED course: Decadron 6 mg IV NSS 1000 mL IV Duoneb 3 mL Difficult to obtain ROS given patient's underlying dementia; however: Patient endorses coughing, sore neck, body aches, and headache. Patient denies fever, chills, night-sweats, chest pain, chest palpitations, SOB, abdominal pain, N/V/D, or redness or swelling in the legs. Phone call at 1430: Called patient's grandson (Wiliam) on the phone and provided update regarding labs/imaging/admission status. Jordan reports that the timeline of her symptoms has been over the past 2 days. In terms of cognitive baseline, jordan reports that while she does have good and bad days, the past 2 days have been particularly bad. Patient took all of her regular morning medications today, except (maybe) her Keppra (which she takes for history of partial seizures). Patient is not currently on blood thinners, and jordan reports that she cannot take blood thinners due to history of brain bleed. Jordan does report that both he and the patient's are medical power of contracts attorney's. The patient does not have a living will. Jordan reports that, given her cognitive baseline, she would not want to be hooked up to any change in mechanical ventilation under any circumstances. While he is requesting that the patient be listed as a DNR/DNI, he reports that he will speak to the p atient's other medical power of contracts attorney () and confirm family wishes. Update at 1445: Called patient's grandson again. He confirms that he spoke on the phone with patient's , and they are in agreement that the patient should be a DNR/DNI. Discharge Exam Constitutional WD/WN, vitals as above Respiratory normal respiratory effort, lungs clear to auscultation Cardiovascular Extremities: no calf tenderness (Right calf larger than left) Psychiatric Orientation: alert, oriented to person and oriented to place; + not oriented to time Discharge Plan Discharge Items Patient Disposition: Transfer Inpatient Rehab Fac Reason For Visit: COVID,HYPOXIA Discharge Diagnosis: COVID-19 pneumonia Activity: Resume your previous activity Non-emergency contact: Primary Care Provider Call non-emergency contact if: you have any medication questions and your symptoms worsen Follow-up/Referrals: Cass Anne DO [Primary Care Provider] - Diet: Regular Diet Texture: Mechanical soft (ground) Addtl Attending Provider Instructions: You were admitted to [facility] from April 18 - 2024 due to worsening mental state, weakness, cough and low oxygen saturations. You were diagnosed with COVID-19 pneumonia and treated with remdesivir (completed 5 day course) and three days of dexamethasone. You are now stable on room air therefore dexamethasone has been discontinued. You are now medically stable for discharge but physical therapy recommended rehabilitation therefore will be transferred to [facility] to enable this. Pending Studies at Discharge: No Stand-Alone Forms: My [facility] Skilled Items Patient informed of condition?: Yes DNR: Yes Discharge Level of Care: Acute rehab Communicable Disease: Yes (COVID-19) Discharge Prognosis: Stable Lines: None Urinary Catheter: No Medications and DC Order Prescriptions: Continued cholecalciferol (vitamin D3) 50 mcg (2,000 unit) capsule 2,000 unit PO DAILY Qty: 90 2RF memantine 21 mg capsule,sprinkle,ER 24hr 21 mg PO DAILY Qty: 90 3RF Rx Instructions: Open capsule and sprinkle on food such as applesauce. levetiracetam 100 mg/mL solution 500 mg PO BID Qty: 900 2RF Rx Instructions: 500mg by mouth BID amlodipine 10 mg tablet 10 mg PO DAILY Qty: 90 1RF Hold Instructions: difficulty swallowing aripiprazole 2 mg tablet 2 mg PO DAILY trazodone 50 mg tablet 50 mg PO UD Rx Instructions: 1/4-1 tab by mouth at bedtime PRN orally; duloxetine 60 mg capsule,delayed release(DR/EC) 60 mg PO BID ramelteon 8 mg tablet 8 mg PO UD Rx Instructions: 8 mg po hs. 30-60 mins before bed Per list from pharmacy, medication is listed as inactive/transferred out but pharmacist put ? as to where medication might have been sent. Unable to verify. levothyroxine 125 mcg/mL solution 125 mcg PO DAILY Qty: 30 5RF Discharge Orders: Discharge Order (Routine); Ordered 04/23/24 Ordered By: Magdaleno Roque Admission Data Admit Date/Time: 04/18/24 14:15 Attending Provider: Magdaleno Roque Admit Provider: Pierre Ordonez Primary Care Provider: Cass Anne Other Providers: Pierre Ordonez; [facility] Other Interventions: Discharge Summary Assessment (RN) Last Done: 04/23/24 11:25 Hospital Stay Data Consultations 04/18/24 13:03 ED Decision to Admit Stat Pending Results Patient Have Any Pending Studies at Discharge: No Discharge Instructions Given to Patient (Per Discharging Provider) You were admitted to [facility] from April 18 - 2024 due to worsening mental state, weakness, cough and low oxygen saturations. You were diagnosed with COVID-19 pneumonia and treated with remdesivir (completed 5 day course) and three days of dexamethasone. You are now stable on room air therefore dexamethasone has been discontinued. You are now medically stable for discharge but physical therapy recommended rehabilitation therefore will be transferred to [facility] to enable this. Total Time Total Time Spent Total Time Spent (In Minutes): 40 Coding Level of Care Code 18478 INP/OBS DISCH >30 MIN Diagnoses COVID U07.1 Depression with anxiety F41.8 History of sick sinus syndrome Z86.79 Hypertension I10 Hypertension type: essential hypertension Acquired hypothyroidism E03.9 Hypothyroidism type: acquired Acute hypoxemic respiratory failure due to COVID-19 U07.1; J96.01 Severe dementia, unspecified dementia type, unspecified whether behavioral, psychotic, or mood disturbance or anxiety F03.C0 Dementia behavioral or psychological symptom: unspecified whether behavioral, psychotic, or mood disturbance or anxiety Dementia severity: severe Dementia type: unspecified type Partial seizures R56.9 Insomnia, unspecified type G47.00 Insomnia type: unspecified Transaminitis R74.01
[2024-04-23 11:26] VITALS: BP 133/76; PULSE 67
--- NOTE | 2024-04-23 13:30 | Ultrasound Report ---
RIGHT LOWER EXTREMITY VENOUS DOPPLER CLINICAL HISTORY: right leg swelling ?DVT COMPARISON STUDY: Right lower extremity venous Doppler ultrasound October 08, 2021. TECHNIQUE: Sonography of the deep venous system of the right lower extremity was performed. Compress ion and augmentation were evaluated. FINDINGS: The right common femoral, superficial femoral and popliteal veins were compressible. Augme ntation was normal. Flow was shown within the deep calf vessels. IMPRESSION: No evidence of deep venous thrombus within the right lower extremity. ACT 112: Negative or not required by law. Electronically signed by: Wiliam Bernabe M.D. 04/23/2024 1:28 PM
== END 2024-04-23 14:04 | DRG 177 ==
LOC: ED 11:04 → 2N 14:15 → SUATTDRO 14:15 → 2N 16:31